=== PATIENT | male | born 1940 ===

== ENCOUNTER 2016-06-08 14:36 | Inpatient (IN) | payer MEDICARE, BC ==
[2016-06-08 14:44] VITALS: BMI 31.5
[2016-06-08] MEDS ORDERED: Morphine 2 mg/ml ISec IVP STA ×2 (15:18→17:53)
[2016-06-08 16:45] LABS: ADD MANUAL DIFF? NO
[2016-06-08 16:51] LABS: BASO # 0.05 K/mm3 (0.0-2.0); BASO % 0.6 % (0.0-3.0); EOS # 0.1 (0.0-0.7); EOS % 0.6 % (1.5-5.0); GRAN # 5.14 (1.4-6.5); GRAN % 66.7 % (50.0-68.0); HEMATOCRIT 40.4 % (42.0-52.0); LYMPH # 1.8 (1.2-3.4); LYMPH % 23.3 % (22.0-35.0); MEAN CORPUSCULAR HGB CONC 32.9 g/dl (31.0-37.0); MEAN PLATELET VOLUME 13.8 fl (7.0-11.0); MONO # 0.7 (0.1-0.6); MONO % 8.8 % (1.0-6.0); PLATELET COUNT 215 10^3/uL (120.0-450.0); RED CELL DISTRIBUTION WIDTH 14.5 % (11.5-14.5); WHITE BLOOD COUNT 7.7 10^3/ul (4.5-11.0)
[2016-06-08 17:04] LABS: ALKALINE PHOSPHATASE 165 U/L (38-133); ALT/SGPT 87 U/L (7-56); AST/SGOT 81 U/L (15-59); BILIRUBIN,TOTAL 0.8 mg/dL (0.2-1.3); BLOOD UREA NITROGEN 15 mg/dL (7-21); CARBON DIOXIDE 25 mmol/L (21-33); CHLORIDE 102 mmol/L (98-107); GFR AFRICAN-AMERICAN > 60; GLUCOSE,RANDOM 103 mg/dL (70-110); POTASSIUM 4.9 mmol/L (3.6-5.0); SODIUM 138 mmol/L (132-148); TOTAL PROTEIN 8.2 g/dL (5.8-8.3)
[2016-06-08 17:06] LABS: INR 1.06 (0.93-1.08); PARTIAL THROMBOPLASTIN TIME 26.4 Seconds (23.7-30.8)
[2016-06-08 17:19] LABS: TROPONIN I < 0.01 ng/mL
[2016-06-08] MEDS ORDERED: Albuterol HFA 90 mcg/actuation (8 g) IH PRN (17:24)
[2016-06-08] MEDS ORDERED: Albuterol 0.083% Inhal Sol (2.5 mg/3 mL) UD IH PRN (17:31)
[2016-06-08] MEDS ORDERED: Dexamethasone 4 MG in Sodium Chloride 0.9% 50 ML IV STA (17:56)
[2016-06-08 18:18] LABS: PH,URINE 5.5 (4.7-8.0); URINE BILIRUBIN NEGATIVE (NEGATIVE); URINE BLOOD NEGATIVE (NEGATIVE); URINE GLUCOSE (UA) NEGATIVE (NEGATIVE); URINE KETONE NEGATIVE (NEGATIVE); URINE LEUKOCYTE ESTERASE NEGATIVE Leu/uL (NEGATIVE); URINE PROTEIN TRACE mg/dL (<30 mg/dL)
[2016-06-08 18:20] LABS: URINE APPEARANCE CLEAR (CLEAR); URINE COLOR YELLOW (YELLOW)
[2016-06-08 18:21] LABS: URINE BACTERIA FEW (NEG); URINE RBC NEGATIVE /hpf (0-2); URINE WBC 0 - 2 /hpf (0-6)
--- NOTE | 2016-06-08 18:32 | RAD ---
PROCEDURE: Chest portable HISTORY: back pain COMPARISON: 12/20/2014. TECHNIQUE: Technique: Single view portable semi erect @ 16:45. FINDINGS: No active pulmonary disease. No pulmonary nodules, masses or infiltrates. No evidence of acute, significant cardiovascular disease. No significant pleural, osseous or subdiaphragmatic abnormalities. IMPRESSION: No active disease. No acute/significant interval changes.
--- NOTE | 2016-06-08 18:45 | CARD ---
APPROVED REPORT EKG Measurement Heart [id number] ME [id number] <Conclusion> Normal sinus rhythm Right bundle branch block Abnormal ECG
--- NOTE | 2016-06-08 19:05 | ED PDOC ---
Arrival/HPI - General Chief Complaint: Back Pain Time Seen by Provider: 06/08/16 14:55 Historian: Patient, Family - History of Present Illness Narrative History of Present Illness (Text): 06/08/16 19:02 Patient is a 75 yo male, past medical hx of prostate disease, sent from Dr. Kaitlyn Diaz for history of persistent back pain that has progressively worsening. No acute trauma reported. No chest pain or shortness of breath. No incontinence of urine or stool. Denies any numbness or weakness. Patient has reportedly had back pain worse since March. Outpatient MRI reportedly reveals thoracic spine fracture and suggestive of possible metastatic disease. Time/Duration: > month Past Medical History - Infectious Disease Hx of Infectious Diseases: None - Tetanus Immunization Tetanus Immunization: Unknown - Cardiac Hx Angina: Yes Hx Atrial Fibrillation: Yes Hx Hypertension: Yes - Pulmonary Hx Asthma: Yes Hx Chronic Obstructive Pulmonary Disease (COPD): Yes Hx Emphysema: Yes - Neurological Other/Comment: Neuropathy - HEENT Hx HEENT Disorder: Yes (wear glasses) Other/Comment: Porter's esophagus - Renal Hx Renal Disorder: Yes (right kidney cyst removal) - Endocrine/Metabolic Hx Diabetes Mellitus Type 2: Yes - Musculoskeletal/Rheumatological Hx Falls: No - Gastrointestinal Hx Gastroesophageal Reflux: Yes - Genitourinary/Gynecological Hx Reproductive Disorders: Yes - Psychiatric Hx Psychophysiologic Disorder: No Hx Substance Use: No - Surgical History Hx Appendectomy: Yes Hx Cholecystectomy: Yes Other/Comment: right kidney cyst removal,. hernia sx - Anesthesia Hx Anesthesia: Yes Hx Anesthesia Reactions: No Hx Malignant Hyperthermia: No - Suicidal Assessment Feels Threatened In Home Enviroment: No Family/Social History Family/Social History: Unknown Family HX Smoking Status: Light Smoker < 10 Cigarettes Daily Hx Alcohol Use: Yes (socially) Hx Substance Use: No Hx Substance Use Treatment: No Allergies/Home Meds Allergies/Adverse Reactions: Allergies No Known Allergies Allergy (Verified 06/08/16 14:44) Home Medications: Home Meds Medication Instructions Recorded Confirmed Albuterol Sulfate [Proair Hfa] 0.09 mg IH TID PRN 12/03/15 06/11/16 Aspirin [Adult Low Dose Aspirin EC] 81 mg PO DAILY 12/03/15 06/11/16 DULoxetine [Cymbalta] 60 mg PO DAILY 12/03/15 06/11/16 Fluticasone/Salmeterol 250/50 1 puff IH Q12 12/03/15 06/11/16 [Advair Diskus] Glucosamine Sulfate Dipot Chlr 1,000 mg PO BID 12/03/15 06/11/16 [Glucosamine] Metoprolol Succinate [Toprol XL] 50 mg PO BID 12/03/15 06/11/16 Silodosin [Rapaflo] 8 mg PO DAILY 12/03/15 06/11/16 Tiotropium [Spiriva] 18 mcg IH DAILY 12/03/15 06/11/16 Topiramate [Topamax] 25 mg PO HS 12/03/15 06/11/16 metFORMIN [glucOPHAGE] 500 mg PO DAILY 12/03/15 06/11/16 Review of Systems - Review of Systems Constitutional: Fatigue, Weight Change. absent: Fevers Eyes: absent: Vision Changes ENT: absent: Hearing Changes Respiratory: absent: SOB Cardiovascular: absent: Chest Pain Gastrointestinal: absent: Abdominal Pain, Diarrhea, Nausea, Vomiting Genitourinary Male: absent: Dysuria, Frequency, Hematuria, Urinary Output Changes Musculoskeletal: Back Pain. absent: Neck Pain Skin: absent: Rash Neurological: absent: Headache, Dizziness, Focal Weakness Endocrine: absent: Polyuria Hemo/Lymphatic: absent: Easy Bleeding Physical Exam Vital Signs Reviewed: Yes Vital Signs Temp Pulse Resp BP Pulse Ox 06/08/16 19:25 75 20 121/59 L 96 06/08/16 15:00 97.0 F L 66 20 111/68 97 Temperature: Afebrile Appearance: Positive for: Uncomfortable Pain Distress: Severe Mental Status: Positive for: Alert and Oriented X 3 - Systems Exam Head: Present: Atraumatic Pupils: Present: PERRL Mouth: Present: Moist Mucous Membranes Pharnyx: No: ERYTHEMA Neck: Present: Normal Range of Motion, Trachea Midline. No: Meningeal Signs, MIDLINE TENDERNESS Respiratory/Chest: Present: Clear to Auscultation. No: Respiratory Distress, Tender to Palpation Cardiovascular: Present: Regular Rate and Rhythm Abdomen: No: Tenderness, Distention Rectal: No: Gross Blood Back: Present: Midline Tenderness, Paraspinal Tenderness, Pain with Leg Raise. No: CVA Tenderness Upper Extremity: Present: Normal Inspection. No: Edema Lower Extremity: Present: NORMAL PULSES, Neurovascularly Intact. No: Edema, CALF TENDERNESS Neurological: Present: Motor Func Grossly Intact, Normal Sensory Function, Other (no saddle anesthesia, reflexes intact) Skin: Present: Warm Psychiatric: Present: Alert Medical Decision Making ED Course and Treatment: 06/08/16 19:05 Patient's MRI reports from 06/04 reviewed with prior to arrival. On exam in ED, he has severe back pain, although exam and previous MRI not consistent with cord compression. On current exam there are no focal neuro deficits or history of incontinence of urine or stool. IV morphine given with only mild improvement with pain, it persists. Chest xray obtained, cannot exclude nodules. He is not respiratory distress. Denies chest pain or sob. Case d/w Dr. Camacho, iv decadron and neuro and nsg consults requested. I discussed case with Dr. Farah, neurosurgery. updated, patient admitted for evaluation of spinal fracture, evaluation for possible metastatic disease. Family updated with treatment plan. Pain improved but persistent after additional dose of iv narcotics. Concern for underlying malignancy reviewed. Family translates for patient. 06/08/16 19:07 LFTs elevated, currently no abdominal pain noted. - Lab Interpretations Lab Results: 06/08/16 16:33 06/08/16 16:33 Lab Results 06/08/16 16:33: WBC 7.7 D, RBC 4.44, Hgb 13.3 L, Hct 40.4 L, MCV 91.0, MCH 30.0 , MCHC 32.9, RDW 14.5, Plt Count 215, MPV 13.8 H, Gran % 66.7, Lymph % (Auto) 23.3, Barry % (Auto) 8.8 H, Eos % (Auto) 0.6 L, Baso % (Auto) 0.6, Gran # 5.14, Lymph # 1.8, Barry # 0.7 H, Eos # 0.1, Baso # 0.05, ESR 26 H, PT 11.4, INR 1.06, APTT 26.4, Sodium 138, Potassium 4.9, Chloride 102, Carbon Dioxide 25, Anion Gap 16, BUN 15, Creatinine 1.1, Est GFR ( Amer) > 60, Est GFR (Non-Af Amer) > 60, Random Glucose 103, Calcium 10.0, Total Bilirubin 0.8, AST 81 H, ALT 87 H, Alkaline Phosphatase 165 H, Lactate Dehydrogenase 586, Total Creatine Kinase 24 L, Troponin I < 0.01, Total Protein 8.2, Albumin 4.1, Globulin 4.1, Albumin/Globulin Ratio 1.0 L, Carcinoembryonic Ag 1.3, Free PSA <0.1, % Free PSA Unable to calculate, Total PSA <0.1, Blood Type O POSITIVE, Antibody Screen Negative, BBK History Checked Patient has bt - RAD Interpretation Radiology Orders: 06/08/16 14:59 CHEST PORTABLE [RAD] Stat 06/08/16 17:21 CHEST,ABD,PEL W/IV CONT ONLY [CT] Stat Summer Analyst: Radiologist - EKG Interpretation Interpreted by ED Physician: Yes Type: 12 lead EKG - Medication Orders Current Medication Orders: Discontinued Medications Acetaminophen (Tylenol 325mg Tab) 650 mg PO Q4 PRN PRN Reason: Pain, Mild (1-3) Albuterol Sulfate (Albuterol 0.083% Inhal Maureen (2.5 Mg/3 Ml) Ud) 2.5 mg IH TID PRN PRN Reason: SOB Arformoterol Tartrate (Brovana) 15 mcg IH [id number] [facility] Last Admin: 06/11/16 07:24 Dose: 15 MCG Aspirin (Ecotrin) 81 mg PO DAILY [facility] Last Admin: 06/09/16 09:35 Dose: 81 MG Budesonide (Pulmicort Respules) 0.5 mg IH [id number] [facility] Last Admin: 06/11/16 07:24 Dose: 0.5 MG Dexamethasone (Decadron) 4 mg PO Q6 [facility] Last Admin: 06/11/16 17:54 Dose: 4 MG Duloxetine HCl (Cymbalta) 60 mg PO DAILY [facility] Last Admin: 06/11/16 09:40 Dose: 60 MG Famotidine (Pepcid) 20 mg IVP STAT STA Stop: 06/08/16 17:56 Last Admin: 06/08/16 20:35 Dose: 20 MG IVP Administration Document 06/08/16 20:35 RD (Rec: 06/08/16 20:35 RD [id number]) Charges for Administration # of IVP Administrations 1 Fentanyl (Fentanyl) Confirm Administered Dose 100 mcg .ROUTE .STK-MED ONE Stop: 06/10/16 15:13 Last Admin: 06/10/16 15:28 Dose: 100 MCG Comments: 1528 50mcg given IV by 1536 50mcg given IV as per MAR Pain Assessment Document 06/10/16 15:28 JMT (Rec: 06/10/16 16:27 JMT [id number]) Pain Reassessment Is this a pain reassessment? No Dexamethasone 4 mg/ Sodium (Chloride) 51 mls @ 150 mls/hr IV STAT STA Stop: 06/08/16 18:16 Last Admin: 06/08/16 20:35 Dose: 150 MLS/HR eMAR Start Stop Document 06/08/16 20:35 RD (Rec: 06/08/16 20:35 RD [id number]) Intravenous Solution Start Date 06/08/16 Start Time 20:35 End Date 06/08/16 End time 20:56 Total Infusion Time 21 Sodium Chloride (Sodium Chloride 0.45%) 1,000 mls @ 60 mls/hr IV .[id number] ANDREA Stop: 06/11/16 08:00 Last Admin: 06/11/16 06:45 Dose: 60 MLS/HR eMAR Start Stop Document 06/11/16 06:45 IMT (Rec: 06/11/16 06:45 IMT [id number]) Intravenous Solution Start Date 06/11/16 Start Time 06:00 Heparin Sodium (Porcine) (Heparin 1000 Units/500 Ml Ns) Confirm Administered Dose 500 mls @ ud IV .STK-MED ONE Stop: 06/10/16 14:48 Iodixanol (Visipaque 320 Mg/Ml 100 Ml) Confirm Administered Dose 100 ml IV .STK- MED ONE Stop: 06/10/16 14:48 Iohexol (Omnipaque 350 100 Ml) Confirm Administered Dose 350 mg .ROUTE .STK-MED ONE Stop: 06/08/16 19:32 Lidocaine HCl (Lidocaine 2% 20ml Vial) Confirm Administered Dose 40 ml .ROUTE .STK-MED ONE Stop: 06/10/16 14:48 Last Admin: 06/10/16 15:32 Dose: 20 ML Comments: 1532 10ml given subcutaneously by 1543 10ml given subcutaneously by Metoprolol Succinate (Toprol Xl) 50 mg PO DAILY [facility] Last Admin: 06/11/16 09:40 Dose: 50 MG Midazolam HCl (Versed Inj) Confirm Administered Dose 2 mg .ROUTE .STK-MED ONE Stop: 06/10/16 15:13 Last Admin: 06/10/16 15:28 Dose: 2 MG Comments: 1528 1.5mg given IV by 1536 0.5mg given IV as per Midazolam HCl (Versed Inj) Confirm Administered Dose 2 mg .ROUTE .STK-MED ONE Stop: 06/10/16 15:38 Last Admin: 06/10/16 15:36 Dose: 1 MG Comments: 1536 0.5mg given IV as per 1606 0.5mg given IV as per Morphine Sulfate (Morphine) 2 mg IVP STAT STA Stop: 06/08/16 15:19 Last Admin: 06/08/16 16:39 Dose: 2 MG MAR Pain Assessment Document 06/08/16 16:39 OCS (Rec: 06/08/16 16:39 [facility] Pain Reassessment Is this a pain reassessment? Yes Sleep Is patient sleeping during reassessment? No Presence of Pain Presence of Pain Yes Pain Scale Used Pain Scale Used Numeric Location Pain Location Body Site Back Description Intensity of Pain at present 10 IVP Administration Document 06/08/16 16:39 OCS (Rec: 06/08/16 16:39 [facility]CS [facility] Charges for Administration # of IVP Administrations 1 Morphine Sulfate (Morphine) 2 mg IVP STAT STA Stop: 06/08/16 17:54 Last Admin: 06/08/16 20:34 Dose: 2 MG MAR Pain Assessment Document 06/08/16 20:34 RD (Rec: 06/08/16 20:35 RD [id number]) Pain Reassessment Is this a pain reassessment? No Sleep Is patient sleeping during reassessment? No Presence of Pain Presence of Pain Yes IVP Administration Document 06/08/16 20:34 RD (Rec: 06/08/16 20:35 RD [id number]) Charges for Administration # of IVP Administrations 1 Re-Assess: MAR Pain Assessment Document 06/08/16 21:34 KGD (Rec: 06/09/16 00:01 KGD CP) Pain Reassessment Is this a pain reassessment? Yes Sleep Is patient sleeping during reassessment? Yes Morphine Sulfate (Morphine) 2 mg IVP Q4H PRN PRN Reason: Pain, severe (8-10) Last Admin: 06/10/16 17:41 Dose: 2 MG [facility] Pain Assessment Document 06/10/16 17:41 MCV (Rec: 06/10/16 17:41 [facility]-[id number]) Pain Reassessment Is this a pain reassessment? No Presence of Pain Presence of Pain Yes Pain Scale Used Pain Scale Used Numeric Location Pain Location Body Site Back Description Description Pressure Intensity of Pain at present 9 Pain Behavior Restlessness Aggravating Factors Changing Position Alleviating Factors/Management Medication Techniques Alleviating Factors Medication IVP Administration Document 06/10/16 17:41 [facility] (Rec: 06/10/16 17:41 [facility]-[id number]) Charges for Administration # of IVP Administrations 1 Re-Assess: [facility] Pain Assessment Document 06/10/16 18:41 MCV (Rec: 06/10/16 19:06 [facility]-[id number]) Pain Reassessment Is this a pain reassessment? Yes Sleep Is patient sleeping during reassessment? Yes Pain Scale Used Pain Scale Used Radha Non-Formulary Medication (Silodosin [Rapaflo]) 8 mg PO DAILY [facility] Last Admin: 06/09/16 18:49 Dose: 8 MG Non-Formulary Medication (Silodosin [Rapaflo]) 8 mg PO DAILY [facility] Last Admin: 06/11/16 09:41 Dose: Non-Formulary Medication (Silodosin [Rapaflo]) 8 mg PO DAILY@2200 [facility] Ondansetron HCl (Zofran Inj) 4 mg IVP Q6H PRN PRN Reason: Nausea/Vomiting Oxycodone HCl (Oxycontin Extended Release Tab) 10 mg PO Q12 [facility] Stop: 06/11/16 22:01 Last Admin: 06/11/16 09:40 Dose: 10 MG [facility] Pain Assessment Document 06/11/16 09:40 MJO (Rec: 06/11/16 09:40 MJO [facility] [place] [facility] [place] Pain Reassessment Is this a pain reassessment? No Sleep Is patient sleeping during reassessment? No Presence of Pain Presence of Pain No Re-Assess: [facility] Pain Assessment Document 06/11/16 10:40 MJO (Rec: 06/11/16 11:59 MJO [facility] [place] [facility] [place] Pain Reassessment Is this a pain reassessment? Yes Sleep Is patient sleeping during reassessment? No Presence of Pain Presence of Pain No Oxycodone HCl (Oxycodone Immediate Release Tab) 5 mg PO Q6H PRN PRN Reason: Pain, severe (8-10) Last Admin: 06/11/16 14:15 Dose: 5 MG [facility] Pain Assessment Document 06/11/16 14:15 [facility] (Rec: 06/11/16 14:16 [id number] Pain Reassessment Is this a pain reassessment? No Sleep Is patient sleeping during reassessment? No Presence of Pain Presence of Pain Yes Pain Scale Used Pain Scale Used Numeric Location Upper or Lower Lower Pain Location Body Site Back Description Description Intermittent Intensity of Pain at present 7 Pain Behavior Facial Grimacing Aggravating Factors ADL's Changing Position Exercise/Activity Alleviating Factors/Management Medication Techniques Re-Assess: [facility] Pain Assessment Document 06/11/16 15:11 [facility] (Rec: 06/11/16 15:11 [id number] Pain Reassessment Is this a pain reassessment? No Sleep Is patient sleeping during reassessment? No Presence of Pain Presence of Pain No Oxycodone/Acetaminophen (Percocet 5/325 Mg Tab) 1 tab PO Q4H PRN PRN Reason: Pain, moderate (4-7) Stop: 06/13/16 16:39 Sennosides (Senokot Tab) 8.6 mg PO DAILY [facility] Last Admin: 06/11/16 09:40 Dose: 8.6 MG Tiotropium Jackson (Spiriva) 18 mcg IH DAILY [facility] Last Admin: 06/11/16 09:39 Dose: 18 MCG Topiramate (Topamax) 25 mg PO HS [facility] PRN Reason: Protocol Last Admin: 06/10/16 22:09 Dose: 25 MG Behavioural Document 06/10/16 22:09 [facility] (Rec: 06/10/16 22:09 [id number] Maintenance Maintenance Dose Yes Nonmedicinal Nonmedicinal Interventions Redirect Behavior Behavior for Medication: Insomnia Disposition/Present on Arrival - Present on Arrival Any Indicators Present on Arrival: No History of DVT/PE: No History of Uncontrolled Diabetes: No Urinary Catheter: No History of Decub. Ulcer: No History Surgical Site Infection Following: None - Disposition Have Diagnosis and Disposition been Completed?: Yes Diagnosis: Thoracic spine fracture Disposition: HOSPITALIZED Disposition Time: 17:00 Patient Plan: Admission Condition: SERIOUS
[2016-06-08] MEDS ORDERED: Iohexol 350 MG/100 ML VIAL ONE (19:31)
[2016-06-08] MEDS ORDERED: Fluticasone-Salmeterol 250-50mcg Diskus IH SCH (22:00)
[2016-06-08] MEDS: oxyCODONE 10 mg ER Tab (oxyCONTIN) PO SCH (23:01)
--- NOTE | 2016-06-09 05:27 | HP ---
HISTORY OF PRESENT ILLNESS: This unfortunate 75-year-old male came in from [place] a few days ago complaining of severe back pain and onset of weight loss. He was seen as an outpatient in the office and had been trying to remedy with the tramadol, but he was in such pain that while in [place], he was given a spinal block of one type or another. He has barely arrived and had remained there with this amount of pain for over 3 months. His main in process inspector is his , a former nurse, and he does tend to have occasional pain and other issues, but this was clearly a change from the past. We had last seen him in when he was planning to spend some time in [place] and has been, unfortunately, not attending many family functions because of the pain. We are told that there he had some referrals to doctors, but nothing seemed to work. We asked the if there was any MRI done, and she said no, only x-rays, which she brought disks of, that were not helpful. The evaluation of these x- rays was not helpful either. So as he was seen on last as an outpatient, we referred him over to what we thought would be appropriate, Dr. Duncan or Dr. Reyes, and he was able to get in with Dr. Duncan today. We also procured an MRI for him that was done and was not called in to our office. So the patient has been with this very severe pain for over 3 months, as we can tell. He does not sit for any prolonged period of time. He is always lying down on a bed, that is where he feels comfortable. He gets up only to please his so that he can move around, but as soon as he can be supine, he is in that position. Nothing seems to relieve him. He came not with narcotic, but with tramadol. That does not seem to help him, and it really was very disturbing to see that his pain has been ongoing for so long. The x-ray that we were given did not mention any fracture, and the was not told of any fracture. There was not much from the evaluation at [place] by the doctors that we just cannot understand how this went on for so long. However, we took from that day on, and the patient has underlying depression, so that also maximizes some of the issues. He was able to stand the visit with us last , for a short time, so that we could get our main evaluation done. His medicines were reviewed, and he was sent to the ER earlier on today after we got a call from Dr. Duncan, whose interpretation, and agreement of the MRI was that there is a fresh T11 fracture with some consistent findings of possible metastatic disease. This was all very new to the patient, his , and us, and Dr. Duncan's recommendation was to bring him to the Emergency Room and hopefully admit, as there does need to be immediate workup done, and the patient is in such pain that he will not be able to do this on his own. Sending him over to the ER, there were no acute findings by the labs, and case was discussed with Dr. Multani, who was kind enough to review and have a few of the tests done. Laboratories were not as contributory as we had hoped, and the main MRI was already evident. So, a call was placed to Dr. Camacho as a windows consultant. He will see the patient later. A call was placed to the neurosurgeon at Dr. Camacho's request as the MRI findings may warrant neurosurgical intervention, but Dr. Farah will look over later. PAST MEDICAL HISTORY: Remarkable for mild anemia, recurrent constipation, occasional chest wall tenderness post the insertion of the chest tube over a [id number] ago, an episode of paroxysmal atrial fibrillation, chronic bronchitis. He follows with Dr. Headley. History of prostate cancer. He follows with and has been receiving Eligard. Recurrent headaches and this is overseen with Dr. Soliman. He has some varicose veins that appear to be asymptomatic. 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 Idiopathic neuropathy, hyperlipidemia, nicotine dependence, a renal cyst, and a history in the past of bullous emphysema. PAST SURGICAL HISTORY: Remarkable for cataracts, appendectomy, gallbladder, history of herniorrhaphy, partial left nephrectomy by Dr. Carr in 1978, history of carpal tunnel syndrome release in the , and prostate biopsy intervention through Dr. Weir. FAMILY HISTORY: Remarkable for his father had an OK, age 84, also had a comorbid COPD. Mother at age 93, COPD and an OK. Siblings were alive. Children are alive. He has 3 brothers, 2 sisters, and 2 daughters. There is some family history of cirrhosis and heart attack. One brother also has prostate and colon cancer. He is retired, has been disabled for a few years now. SOCIAL HISTORY: He is , lives with his spouse who is a retired RN. He does not drink alcohol, but he still occasionally smokes. ALLERGIES: LISTED NAUSEA TO MEDROL. We certainly he can tolerate the current dose of cortisone that was prescribed by Dr. Camacho and Dr. Farah. He is always tired. Has had no recent fever. Suffers from recurrent headaches and recent weight loss as he has lost his appetite, and gets chest pain on deep inspiration at times. He is unable to carry any activity consistently, as he is always lying down from the pain. The chest pain at times is band-like and it is across his chest, burning in nature. But again due to the back pain, he cannot fully exert himself. He does suffer from occasional constipation. No history of hepatitis and does appear to be somewhat depressed as anyone would with his current symptoms as he has. MEDICATIONS: Reviewed. He is on duloxetine 60, Rapaflo 8, on Advair Diskus 250 /50, Spiriva once a day, topiramate 25 in the evening, metoprolol tartrate was on 50 mg twice a day. We will change that to once a day while here. The ProAir is used as a rescue. Omeprazole 20, metformin 1000 once a day. We will hold that all for now until we see his intake. Losartan 50 once a day. We will hold off for now, and because of his forgetfulness, he takes Cerefolin. He came from [place] on chlorzoxazone 500 mg 3 times a day and tramadol 50, none of which will be continued now. He had been on Eligard until a few months ago. He missed the one that is due now, and we doubt that with these findings we are going to resume it, but the workup will need to be done. PHYSICAL EXAMINATION: He arrives and is not able to sit for any prolonged period. Is most comfortable lying flat in bed without motion. VITAL SIGNS: pulse rate is 66 and regular, blood pressure 111/68, respiratory rate is 20, and an O2 sat of 97, which is very good for him. GENERAL: He is alert and oriented and is aware of the reason for this admission and appears to be taking at all in stride, as we had a conversation with him and the regarding our very poor expectations and prognosis at present with the lack of information that we have, and hopefully we will have better recommendations once we are able to have the experts help us. He is undernourished and obviously has lost weight and is in extreme pain at any type of motion at 10/10. HEENT: Head is normocephalic, atraumatic. Eyes have extraocular movements full and smooth. Pupils are equally round and reactive to light and accommodation. Sclerae are nonicteric. He is able to hear as well. There is no wax in the ear canal. Nares are patent. There are no lesions in the mouth, and he appears to be well hydrated. Tongue is midline. There is no erythema or exudate in the posterior pharynx. NECK: Supple. There is no thyromegaly. No masses. The carotid bruit is not obvious. He has no rashes on his skin. HEART: Very distant in sound, but rhythm is regular. No murmur appreciated. LUNGS: Very diminished breath sounds throughout. No wheeze. No respiratory distress, and he does not have the typical chest pain that we usually can express when to put pressure on his intercostals. ABDOMEN: Soft. Bowel sounds are present, but distant. No rebound. EXTREMITIES: We do not see clubbing or cyanosis. There are pulses bilaterally. NEUROLOGIC: He is alert and oriented x 3. Cognitive appears grossly normal. The gait is definitely antalgic. LABORATORY DATA: Review of the labs that were done in the Emergency Room shows a sed rate of 26 with a normal of 15. An H and H of 13.3 and hematocrit of 40.4 , which are stable and perhaps slightly up more than normal, as he may be slightly dehydrated. Coagulation shows no abnormalities in PT, INR, and PTT. His chemistry shows an AST of 81 and ALT of 87, probably consistent with all the use of Tylenol and other medications he may have had on the outside. His alkaline phosphatase, remarkably, is only 165. Troponin was negative. CEA is only 1.3. PSA is pending. Urine just showed some trace protein. At present, I have no other to review except the MRI that was done on 06/04, and it has become evident for us. His chest x-ray today was read as no active disease. He did have prior history of TB in the past, but no mention of any disease or nodules in the plain chest x-ray. He will undergo a CAT scan of the chest as the thoracic spine MRI was noted as an acute compression fracture in T11, in the body, with a fracture line identified, and this was not evident on the x- rays that were done in [place]. There is mild spinal canal stenosis, probably the cause of his severe pain and abnormal marrow signal. The osseous findings were concerning enough that the radiologist fears osseous, and pulmonary metastasis. So, the request for the CT scan of the thorax with IV was done, we are pending the results. There is no evidence of cord compression. No evidence of hematoma. There is some abnormality noted in T3 vertebral body, and there are incompletely imaged nodules in both lung bases. I believe these were present in the past. We are not certain what else to make out of the findings, hopefully not metastatic disease, but obviously the pain is so severe that this will have to be done as an inpatient. The accompanying MRI of the lumbar spine was not as revealing, and fortunately the interpretation there was no acute fracture, but multilevel degenerative disk disease, worse at L4-5 with a disk bulge and some protrusion displacing the L4 nerve root, and perhaps the reason that the epidural may have worked for a short time when he had one in [facility] if that, indeed, is what he had, but we have no report, so not sure what to make out that. We will wait for the review from the neurosurgeon. We will wait for the recommendation from Dr. Camacho, and perhaps once we have a better idea, involve Dr. Headley, who has been moderating his pulmonary nodules. IMPRESSION: Intractable pain, possibly from metastatic disease to the bone. Primary to be determined. SECONDARY DIAGNOSIS: 1. T11 fracture. 2. Nicotine dependence. 3. Type 2 diabetes mellitus. 4. Chronic pain syndrome. PLAN OF CARE: Depending on the directions from the consultants, and we will continue to closely follow the patient. The weight loss, that has been monitored in the office, of 20 pounds in the past 3 months is disturbing whether it is metastatic disease or lack of nutrition due to his pain will all need to be elucidated. Anthony Diaz MD cc: 73 TT: 06/09/2016 05:26:17 jocelyn HANCOCK
[2016-06-09] MEDS: Arformoterol 15 mcg/2 ml Inh Sol IH SCH ×2 (07:23→20:34)
[2016-06-09] MEDS: Budesonide 0.5 mg/2 ml Inhal Susp UD IH SCH ×2 (07:23→20:34)
[2016-06-09] MEDS: oxyCODONE 10 mg ER Tab (oxyCONTIN) PO SCH ×2 (09:35→21:12)
[2016-06-09] MEDS: Metoprolol Succinate 50 mg XL Tab PO SCH (09:37)
[2016-06-09] MEDS: Tiotropium 18 mcg Cap For Inhalation IH SCH (09:39)
[2016-06-09] MEDS ORDERED: SILODOSIN 8 MG PO SCH (10:00)
--- NOTE | 2016-06-09 11:08 | CON ---
DATE: 06/09/2016 A 75-year-old male with history of weight loss and severe back pain localized to the lower thoracic r egion was seen previously by his PMD as an outpatient. An MRI was ordered which was done several day s ago demonstrating a new T11 fracture consistent with metastatic disease. The patient reports the b ack pain has been going on and intensifying over the last 3 months. He denies any problems using his legs. He denies any new bowel or bladder problems. He reports that he has no numbness, tingling or paresthesias in his lower extremities. PAST MEDICAL HISTORY: He has history of prostate CA being treated by Dr. Camacho. He has history of anemia, chest pain, asthma, emphysema. MEDICATIONS: I have reviewed the chart for his medications. FAMILY HISTORY: Documented in the medical record and reviewed as is the social history and review of systems PHYSICAL EXAMINATION: Currently, he has tenderness in the lower thoracic region. He has no motor de ficits. He has no sensory deficits, pin and touch. Reflexes are all 2/4. I did not walk him. At this point, my impression is metastatic disease, possible plasmacytoma versus myeloma, possible pr ostate metastases. He needs a biopsy of this region. This can be accomplished using interventional radiology and doing a needle biopsy. This is much safer than an open biopsy. He does not require an y neural decompression. He does not require any spinal stabilization at this point. If you are unab le to obtain tissue diagnosis, either through interventional radiology or if you cannot get tissue at another site which may show up in the metastatic workup, then reconsult and we will do an open biops y. Jai Farah MD cc: [id number] TT: 06/09/2016 11:07:19 Confirmation # [id number] Dictation # [id number] tn
--- NOTE | 2016-06-09 12:24 | CP.PCM.CON ---
History of Present Illness - History of Present Illness History of Present Illness: Mr Loo is a 75 year old male with a history of prostate cancer on Eligard who now presents to [facility] with worsening lower back pain for 3 months. At the time, when he was in [place], he saw specialists who injected him with steroids, however he stated he did not have any relief. He recently [place] and saw his PCP due to the debilitating nature of his pain. His PCP referred him for further work-up. A MRI of the lumbar spine on June 04, 2016 revealed no acute fracture. A MRI of the thoracic spine revealed an acute compression fracture at T11 with posterior retropulsion and mild spinal canal stenosis. There was abnormal marrow signal on the left T11 pedicle as well as focal abnormal signal at right T3. He is currently admitted for evaluation of his back lesion and pain management. We were asked to see him today for our input regarding the case. He did have a CT of the chest, abdomen and pelvis, however the results are pending. Review of Systems - Constitutional Constitutional: Weight Loss - Gastrointestinal Gastrointestinal: Abdominal Pain, Constipation, Nausea - Musculoskeletal Musculoskeletal: Back Pain - Neurological Neurological: Headaches Past Patient History - Infectious Disease Hx of Infectious Diseases: None - Tetanus Immunizations Tetanus Immunization: Unknown - Past Social History Smoking Status: Light Smoker < 10 Cigarettes Daily Alcohol: None Home Situation {Lives}: With Family - CARDIAC Hx Angina: Yes Hx Hypertension: Yes - PULMONARY Hx Asthma: Yes Hx Chronic Obstructive Pulmonary Disease (COPD): Yes Hx Emphysema: Yes - NEUROLOGICAL Other/Comment: Neuropathy - HEENT Hx HEENT Problems: Yes (wear glasses) Other/Comment: Porter's esophagus - RENAL Hx Chronic Kidney Disease: Yes (right kidney cyst removal) - ENDOCRINE/METABOLIC Hx Endocrine Disorders: Yes Hx Diabetes Mellitus Type 2: Yes - HEMATOLOGICAL/ONCOLOGICAL Hx Blood Disorders: No - INTEGUMENTARY Hx Dermatological Problems: No - MUSCULOSKELETAL/RHEUMATOLOGICAL Hx Falls: No - GASTROINTESTINAL Hx Gastroesophageal Reflux: Yes - GENITOURINARY/GYNECOLOGICAL Hx Prostate Cancer: Yes (prostate cancer Arlene 6 in 2011 on Eligard) - PSYCHIATRIC Hx Psychophysiologic Disorder: No Hx Substance Use: No - SURGICAL HISTORY Hx Appendectomy: Yes Hx Cholecystectomy: Yes Other/Comment: right kidney cyst removal,. hernia sx - ANESTHESIA Hx Anesthesia: Yes Hx Anesthesia Reactions: No Hx Malignant Hyperthermia: No Meds Allergies/Adverse Reactions: Allergies Allergy/AdvReac Type Severity Reaction Status Date / Time No Known Allergies Allergy Verified 06/08/16 14:44 - Medications Medications: Current Medications Albuterol Sulfate (Albuterol 0.083% Inhal Maureen (2.5 Mg/3 Ml) Ud) 2.5 mg IH TID PRN PRN Reason: SOB Arformoterol Tartrate (Brovana) 15 mcg IH [id number] [facility] Last Admin: 06/09/16 07:23 Dose: 15 mcg Aspirin (Ecotrin) 81 mg PO DAILY [facility] Last Admin: 06/09/16 09:35 Dose: 81 mg Budesonide (Pulmicort Respules) 0.5 mg IH [id number] [facility] Last Admin: 06/09/16 07:23 Dose: 0.5 mg Duloxetine HCl (Cymbalta) 60 mg PO DAILY [facility] Last Admin: 06/09/16 09:35 Dose: 60 mg Metoprolol Succinate (Toprol Xl) 50 mg PO DAILY [facility] Last Admin: 06/09/16 09:37 Dose: 50 mg Non-Formulary Medication (Silodosin [Rapaflo]) 8 mg PO DAILY [facility] Oxycodone HCl (Oxycontin Extended Release Tab) 10 mg PO Q12 [facility] Stop: 06/11/16 22:01 Last Admin: 06/09/16 09:35 Dose: 10 mg Oxycodone HCl (Oxycodone Immediate Release Tab) 5 mg PO Q6H PRN PRN Reason: Pain, severe (8-10) Sennosides (Senokot Tab) 8.6 mg PO DAILY [facility] Last Admin: 06/09/16 09:38 Dose: 8.6 mg Tiotropium Angier (Spiriva) 18 mcg IH DAILY [facility] Last Admin: 06/09/16 09:39 Dose: 18 mcg Topiramate (Topamax) 25 mg PO [facility] PRN Reason: Protocol Last Admin: 06/08/16 23:01 Dose: 25 mg Physical Exam - Head Exam Head Exam: NORMAL INSPECTION - Eye Exam Eye Exam: EOMI - ENT Exam ENT Exam: Mucous Membranes Moist - Respiratory Exam Respiratory Exam: Clear to Auscultation Bilateral - Cardiovascular Exam Cardiovascular Exam: REGULAR RHYTHM - GI/Abdominal Exam GI & Abdominal Exam: Normal Bowel Sounds - Back Exam Additional comments: tenderness in mid/lower back - Neurological Exam Neurological exam: CN II-XII Intact, Oriented x3 Results - Vital Signs Recent Vital Signs: Last Vital Signs Temp 98.3 F 06/09/16 08:24 Pulse 108 H 06/09/16 09:37 Resp 20 06/09/16 08:24 BP 127/89 06/09/16 09:37 Pulse Ox 96 06/09/16 08:24 - Labs Result Diagrams: 06/08/16 16:33 06/08/16 16:33 Labs: Laboratory Results - last 24 hr 06/08/16 17:58 Urine Color Yellow Urine Appearance Clear Urine pH 5.5 Ur Specific Sundown 1.025 Urine Protein Trace H Urine Glucose (UA) Negative Urine Ketones Negative Urine Blood Negative Urine Nitrate Negative Urine Bilirubin Negative Urine Urobilinogen 1.0 H Ur Leukocyte Esterase Negative Urine RBC Negative Urine WBC 0 - 2 Ur Epithelial Cells None Urine Bacteria Few Assessment & Plan - Assessment and Plan (Free Text) Assessment: Mr Loo is a 75 year old male with a history of [facility] who now presents to [facility] with worsening lower back pain for 3 months with new acute compression for T11 lesion, suspicious for metastases. We are waiting for the radiology read of his CT of the chest, abdomen and pelvis to ascertain a possible primary as well as evidence of metastases elsewhere. Based on CT findings, a CT guided biopsy would help ascertain pathology. We are aware that IR and neurosurgery were consulted regarding the compression fracture to see if acute intervention could help relieve his pain immediately. If the fracture is pathologic, he would benefit from palliative radiation. However before we can proceed with any definitive intervention, we will need further work-up. We spoke to him, his and family about this.
--- NOTE | 2016-06-09 13:27 | CT ---
PROCEDURE: CT Chest, Abdomen and Pelvis with intravenous contrast HISTORY: pathologic dorsal spine fracture COMPARISON: None. TECHNIQUE: IV dose administered: 100 cc of Omni 350 Radiation dose: Total exam DLP = 1500 mGy-cm. This CT exam was performed using one or more of the following dose reduction techniques: Automated exposure control, adjustment of the mA and/or kV according to patient size, and/or use of iterative reconstruction technique. FINDINGS: CT CHEST WITH CONTRAST: LUNGS: Multiple pulmonary nodules are seen. Minimal emphysematous changes are seen. There is a left-sided rib lesion on image 85 series 4 MEDIASTINUM: Unremarkable. Normal caliber aorta and pulmonary arterial trunk. No aortic dissection. Normal size heart. LYMPH NODES: Unremarkable. PLEURA: Unremarkable. No pneumothorax. No pleural fluid. BONES: There is a lytic lesion in the T11 vertebral body with some epidural invasion. There is a mild compression deformity OTHER FINDINGS: None. CT ABDOMEN AND PELVIS: LIVER: There is a large hypodense mass in the liver measuring 7.4 cm. Several smaller surrounding lesions are also seen. Findings are consistent with metastatic disease versus is a primary neoplasm. GALLBLADDER AND BILE DUCTS: Unremarkable. PANCREAS: Unremarkable. No gross lesion or ductal dilatation. SPLEEN: Unremarkable. ADRENALS: Unremarkable. No mass. KIDNEYS AND URETERS: There is a 2 cm lesion along the medial surface of the left kidney that measures 33 Hounsfield units in density. 2.5 cm in diameter VASCULATURE: Unremarkable. No aortic aneurysm. BOWEL: Unremarkable. No obstruction. No gross mural thickening. APPENDIX: Normal appendix. PERITONEUM: Unremarkable. No free fluid. No free air. LYMPH NODES: Unremarkable. No enlarged lymph nodes. BLADDER: Unremarkable. REPRODUCTIVE: Unremarkable. BONES: There is a lytic lesion in the right ischium image 190 series 2 OTHER FINDINGS: The report concurs with the preliminary [facility] report IMPRESSION: Multiple lesions in the liver the largest measuring 7.5 cm, suspicious for metastatic disease. Solid lesion versus dense cyst in the left kidney. Lytic bone lesions in the T11 vertebral body and the right ischium as well as left lower rib
[2016-06-09] MEDS: oxyCODONE 5 mg Immediate Release Tab PO PRN (18:48)
[2016-06-09] MEDS ORDERED: Morphine 2 mg/ml ISec IVP PRN (19:15)
--- NOTE | 2016-06-09 21:54 | PN ---
DATE: 06/09/2016 The patient seen earlier this morning at his bedside with his , being much more relieved than whe n he was admitted, and grateful that after 3 months he is finally able to move a little easier withou t pain. Still requiring his rppjky-rwn-chhdm medications, but finally achieving some end. The patie nt was referred to the Emergency Room yesterday after a recent MRI revealed a pathological fracture i nvolving T11, which was a big surprise to the consulting physical medicine expert, Dr. Duncan, and who suggested the patient be immediately admitted for the expedition of the necessary evaluation, as he was not even ambulatory. The patient's severity of pain was perhaps a 02/13, that he could not remai n sitting for any prolonged period of time. His only method of comfort with just lying in bed withou t moving around. He could not get up often. He would get up to the bathroom and come back to the be d because of the pain in the lower back had been so severe until finally we have an identification of the focus of the pain. Before this, he was evaluated in [place] over the past 3 months where he had been, with x-rays and radiation that did not last but a half hour, with injections. We do not b elieve this to have been epidural as it is not described as such by the family, but have no record; [facility] reports that showed severe DJD and the mention of a fracture at that time. Our surprise ye sterday when the report became available, that there are some neurological symptoms that possibly cou ld vouch for some of the bulging disks. However, the severity of the pain goes along with a fresh fr acture, and because of the prior history, it is felt to be pathologic, as that is the appearance. Th e problem now comes as to the source. The patient has long-standing history of prostate cancer being treated with Eligard, and a negative PSA when last checked over 6 months ago. He is being followed with this with Dr. Weir, the urologist in [place]. He has history of lung nodules that are serially checked by Dr. Headley; none of which have shown any imaging. He recently was admitted over a year ago for a left-sided pleural effusion of etiology felt to be because of his bullous emphysema, that took a while to improve, with recurrent pain in the site, but he had 3 evacuations by pleurodesis. The patient has never quite been himself since then, but he is bearable pain that it comes and goes, and had been ambulatory. He has really not been amb ulatory since some time in March or February of this past year. He was in [place], and since t here, he really has not been ambulatory. We were just amazed that it is only now that he is having t he extensive evaluation. Nevertheless, the admission was warranted, as this patient had severe pain, was not responding to outpatient therapy, there was no trial or big application with opioids because the pain was so severe and the was hesitant to administer any of them, and we did not get invol jayden with this until literally 24 hours after his deplaning, and now need to stabilize his pain with t he help of the specialists, and make a recommendation once the immediate necessary test be done. The reason for his hospitalization was so that while he is on his opioids he can undergo the needed CT i maging and consultations where he would not have to travel, and this could only be done in the hospit al. There is no alternative site for this delivery. Again, the severity when the patient was seen i n the office would not allow the patient to sit for our exam, and the exams were all done mostly on t he supine position. He did travel there under the help of Toradol, which did not last him very long. So, we are seeing him this morning and awaiting for the CAT scan report. In fact, we made our roun ds, CAT scan reports were not available, and we decided to dictate a little later, waiting for the co nsultation from Dr. Camacho, and the consultation from Dr. Farah. We hesitated to call in phys ical therapy as we wanted to have a better indication as to where to proceed. He has comorbid diseases, as pointed out in the prior history and physical, including type 2 diabetes mellitus, bullous emphysema, and fatty liver, and history of the prostate CA, all playing a part in this admission. PHYSICAL EXAMINATION: Temperature 98.3 with no peaks yesterday since admission, a pulse rate of 108, a little more rapid th an what we have been used to, but perhaps this was taken at that time when moving him out of bed. Bl ood pressure 127/89, respiratory rate of 20, with an O2 sat of 96, and again, comfortable and with mu ch less pain since we began the oxycodone and OxyContin as prescribed and suggested by Dr. Duncan as a n outside consult just before coming to the hospital. He was very affirmative about the required wor k being done as an inpatient in order to expedite the focus of the disease. Family was made aware th at the prognosis will depend on the identification of the cause, but that at the present, indicators were not very favorable and it all looked malignant from the description of the radiologist on the MR I depicting the pathological fracture of T11. Fingerstick glucose since admission were very acceptable. No labs were repeated this morning, as his labs were drawn later on in the evening yesterday, and we found nothing abnormal at the time. He is , again, with much more relief of his pain and finally has smiled since his last 2 weeks here back in the [facility], and he is anxious for the relief that he experienced with this pain. He is willing to u [facility] physical therapy. We are just waiting for the permission from Dr. Farah. is at be dside and agreeable with our indications. Pupils are equally round and reactive to light and accommodation. Extraocular movement is intact. N o jaundice in the sclerae. NECK: Supple. No cervical lymphadenopathy. Some restriction of flexion on the neck, but again, thi s is all in the bed. He is not able to sit for any prolonged period of time and he fears doing that, so he has been asking the staff not to elevate the head of the bed at too acute an angle, as his meera n returns. No bruit appreciated at the neck. HEART: Regular in rhythm. No S3 appreciated. No murmur. LUNGS: Diminished breath sounds, but overall no adventitious sounds. ABDOMEN: Soft, bowel sounds are present. He has been having bowel movements, but does have a prescr iption for Movantik suggested by Dr. Duncan on the evaluation and recommendation for his oxycodone and OxyContin. He did write the prescriptions for him to take home once we are done with our present ma major. NEUROLOGICALLY: He does appear to have sensation all over, in fact, exacerbation of the pain in the back whenever he moves. IMPRESSION: Pathological fracture of T11. Awaiting for clearance to try a brace or other mode of th erapy once Dr. Farah sees him. SECONDARY DIAGNOSES: 1. 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 Primary yet to be determined. 2. History of prostate cancer. 3. Bullous emphysema. 4. Pulmonary nodule. PLAN OF CARE: Await for recommendations from Drs. Camacho and Gagan. As we are dictating this at a later time, his CAT scan of chest and abdomen became available later on in the morning/early af ternoon. FINDINGS: Multiple lesions in the liver, largest measuring 7.5 cm, suspicious for metastatic disease . Solid lesion versus dense cyst in the left kidney. Lytic bone lesion in the T11 vertebral body an d the right ischium, as well as the left lower ribs. The recommendations appear to be for a biopsy as we note from Dr. Perdue, and perhaps a CAT scan-guided biopsy would help with the pathology. If the fracture is pathological he may benefit from palliative radiation. However, will need to get further workup, which would have to be by biopsy or other chloe mmendation from Dr. Camacho. The note from Dr. Farah is that an open biopsy would most likely be the last recourse, and we appreciate the inputs from the consultants. Will present it in the morn ing to the family. The possibility of a plasmacytoma versus myeloma, versus prostate metastases or i ncluded in the differential diagnosis by Dr. Farah, and he declines neural decompression at the moment nor any spinal stabilization. So, we will ask interventional radiology to assist in the proc urement of the biopsy, and will then discuss with the family and have a plan possibly for an outpatie nt workup. PET scans will probably be required, but that is not an inpatient procedure. The patient 's family was made aware of that, and very frustrating the lack of the diagnosis again, but we have o nly had the case for barely a week now. Anthony Diaz MD cc: [id number] TT: 06/09/2016 21:53:28 Confirmation # [id number] Dictation # [id number]
[2016-06-09] MEDS: Sodium Chloride 0.45% 1,000 ML IV SCH (22:51)
--- NOTE | 2016-06-10 01:40 | CON ---
DATE: 06/09/2016 REASON FOR CONSULTATION: has asked us to see this patient for progressively worsening back pain, admitted for the same with a clinical diagnosis suggestive of a compression fracture related to a malignancy. HISTORY OF PRESENT ILLNESS: This is a 75-year-old male with a history of prostate cancer for the pas t 3-1/2 years on Eligard that he gets twice a year. Being treated by a Dr. Aleena Weir in [facility] and was told that his PSA was down to 0.4, now presents to the [facility], wit h worsening back pain over the last 3 months. The patient has recently been in [place] visiting his family, and was there. His pain had gotten worse and then he chose to come back home. His health specialist injected with him steroids, but did not have any relief. When he came back to the [facility], he went to see his PCP for the worsening pain. The pain that got worse even on moveme nts or coughing or sneezing where he felt that his back was going to explode. The patient was referr ed by his PMD for lumbar spine MRI on 06/04, which revealed no acute fracture. MRI of the thoracic s pine; however, revealed an acute compression fracture of T11 with posterior retropulsion and mild spi nal canal stenosis. There was abnormal marrow signal at the left of T11 pedicle, as well as focal ab normal signal at the right of T3. The patient was admitted for pain management. While in the hospit al, also will need to control the pain, and also obtain a histologic diagnosis so as we could better treat him. The patient has already been seen by radiology/oncology and neurosurgeon at our request. He did a CAT scan of the chest, abdomen, and pelvis, which will be reviewed in detail below. REVIEW OF SYSTEMS: The patient has been having significant back pain over the last several months th at has gotten progressively worse. While he was in [place], he has seen some local MDs who had d one some tests, but could not help him as the pain was progressively worsening. He and his laura ded to come back to the [facility] for further management. The patient complains of abdominal meera n, constipation, and nausea. Back pain is rather significant. On a scale of 1-10 it is at least a 1 0. PAST MEDICAL HISTORY: Chronic obstructive pulmonary disease and is under the care of Dr. Headley. The patient used to be a light smoker and was smoking 10 cigarettes a day for many years since age 29. Quit smoking last year. The patient has a history of Porter's esophagus and history of a right kidney cyst removal. He tells me that about 2 years ago, he was in the hospital with a collapse of the lung related to emphysema and is being monitored while he was here. At that time had a chest tub e that is being monitored by extra hand. The patient has a history of gastroesophageal reflux dis ease. He has type 2 diabetes. ALLERGIES: No known allergies at this time, and no significant reactions to any of the anesthetics. PAST SURGICAL HISTORY: The patient has a history of appendectomy and cholecystectomy. MEDICATIONS THAT HE IS CURRENTLY ON: Are the following: He is on albuterol 2.5 mg 3 mL inhaled 3 ti mes a day. He is on Brovana 15 mcg q. 12 hours. He is on aspirin 81 mg daily, Pulmicort Respules 0. 5 mg inhaled q. 12 hours. He is on Cymbalta 60 mg p.o. daily. He is on metoprolol 50 mg p.o. daily. He is on Rapaflo 8 mg p.o. daily. He is on oxycodone extended release 10 mg p.o. q. 12 hours. He is on oxycodone immediate release 5 mg p.o. q. 6 hours p.r.n. for mild pain. I have also added morph ine 2 mg IV q. 4 hours for severe pain. He is on Senokot tablets daily. He is on Spiriva 18 mcg inh aled daily. He is on Topamax 25 mg p.o. at bedtime. PHYSICAL EXAMINATION: GENERAL: The patient is awake, alert. He is examined in bed. Complaining of significant pain in th e back, but does get relieved with the IV medications. HEENT: Head is normocephalic, atraumatic. Conjunctivae pale. Sclerae anicteric. Pupils are equall y reactive to light and accommodation. NECK: Supple. There is no adenopathy. No jugular venous distention noted. LUNGS: Clear to percussion and auscultation with prolonged expiratory phase. CARDIOVASCULAR: Reveals PMI to be in the 5th intercostal space inside the midclavicular line. S1 an d S2 are normal. No gallop or murmur is heard. ABDOMEN: Soft, nontender. Bowel sounds are present. No rebound, rigidity, or guarding is noted. BACK: Reveals tenderness over the mid and the lower back at the distribution of T11-T12 region, exte nding anterior in a belt-like fashion, both in the left and in the right. NEUROLOGIC: No focal deficits are noted. EXTREMITIES: Reveal no cyanosis, clubbing, or edema. PHYSICAL EXAMINATION: VITAL SIGNS: Reveal a T-max of 98.3, pulse 108, respirations 20, blood pressure 127/89, pulse ox of 96% on room air. LABORATORY DATA: From today were reviewed. White count is 7.7, hemoglobin 13.3, hematocrit 40.4, pl atelet count 215,000. Sodium is 138, K is 4.9, chloride 102, CO2 25, BUN 15, creatinine 1.1, blood s ugar is 103. The patient's x-rays were reviewed and they revealed the following: Specifically, the CAT scan of the abdomen and pelvis along with the MRI. MRI definitely shows a lesion at T11, consist ent with metastatic disease. There is also a lesion at T3. On the CAT scan of the chest, abdomen, a nd pelvis, multiple abnormalities are picked up. The patient has complex changes in the liver. Ther e is a large hypodense mass in the liver measuring 7.4 cm. There are several smaller masses, surroun ding lesions are also seen. Findings most compatible with metastatic cancer. Examination of the CT of the lungs reveals multiple pulmonary nodules with minimal emphysematous changes. There is also le ft-sided lesion in the rib on images shows no findings of any significant disease at this time. Examination of the kidneys and ureters reveals a 2 cm lesion along the medial aspect of the kidney that measures 33 units, could be a dense cyst or a mass itself at this time. The patient has l ytic lesions in the T11 vertebral body, and he also has a lytic lesion at the right as well as the left lower rib. ASSESSMENT NOTES AND PLAN: The patient has metastatic disease, primary site is unknown, does not alex ear to be compatible with prostate even though the workup is in progress. I had detailed discussion with the patient, through his niece, who was my quantitative researcher for today's consultation. I also spoke t o his , Mrs. Loo, over the phone. I explained to her my findings. I had spoken to Dr. Jaspal Smith after reviewing Dr. Farah's note, and speaking to Dr. Perdue. Dr. Jaspal Smith also reviewe d the films and felt very strongly that the best way to attempt to get a diagnosis and also alleviate the pain, would be to do a CT-guided biopsy of the spinal lesion and at the same time do a kyphoplas ty, which would dramatically reduce the pain. Once we have a diagnosis for the cold biopsy, we can t hen decide in which direction we should go. I do not think at this point we have to biopsy the liver lesion, but if we do so, we will do that after waiting the yield from the biopsy of the T11 spine. The patient is on small doses of Decadron as well. We will continue to monitor the patient to see if that will also give relief of pain while we are trying to ascertain the nature of the disease, even though we know it is metastatic cancer. It could be arising from the lung or from the prostate, or i t could be from somewhere else as well. Depending on the immunohistochemistry and pathologic finding s, we can make further decisions. Definitely patient will need palliative radiation to the spine elsie n after the kyphoplasty. Routine post exam instructions have been given to the patient. I have spok en in detail about my findings with the , and we are going to try to see if we can coordinate the procedure for tomorrow morning for the CT-guided biopsy and kyphoplasty at the same time. We will d iscuss with regarding the findings in detail. We will continue to follow the patient with robin nassar. Thank you for allowing me to participate in the management of this very interesting patient. Soni Camacho MD cc: [id number] TT: 06/10/2016 01:40:07 Confirmation # [id number] Dictation # [id number] tn
[2016-06-10 07:07] LABS: ADD MANUAL DIFF? NO
[2016-06-10 07:19] LABS: BASO # 0.01 K/mm3 (0.0-2.0); BASO % 0.2 % (0.0-3.0); GRAN # 4.18 (1.4-6.5); GRAN % 84.1 % (50.0-68.0); HEMATOCRIT 36.3 % (42.0-52.0); LYMPH # 0.7 (1.2-3.4); LYMPH % 13.1 % (22.0-35.0); MEAN CELL VOLUME 90.3 fL (80.0-105.0); MEAN CORPUSCULAR HEMOGLOBIN 29.4 pg (25.0-35.0); MEAN CORPUSCULAR HGB CONC 32.5 g/dl (31.0-37.0); MEAN PLATELET VOLUME 13.4 fl (7.0-11.0); MONO # 0.1 (0.1-0.6); MONO % 2.6 % (1.0-6.0); PLATELET COUNT 152 10^3/uL (120.0-450.0); RED CELL DISTRIBUTION WIDTH 14.4 % (11.5-14.5)
[2016-06-10 07:24] LABS: INR 1.04 (0.93-1.08)
[2016-06-10] MEDS: Budesonide 0.5 mg/2 ml Inhal Susp UD IH SCH ×2 (07:34→20:19)
[2016-06-10] MEDS: Arformoterol 15 mcg/2 ml Inh Sol IH SCH ×2 (07:34→20:19)
[2016-06-10] MEDS: Tiotropium 18 mcg Cap For Inhalation IH SCH (10:00)
[2016-06-10 10:03] LABS: BILIRUBIN,DIRECT 0.7 mg/dL (0.0-0.4); BILIRUBIN,TOTAL 0.8 mg/dL (0.2-1.3); TOTAL PROTEIN 7.7 g/dL (5.8-8.3)
[2016-06-10] MEDS: oxyCODONE 10 mg ER Tab (oxyCONTIN) PO SCH ×2 (10:48→22:09)
[2016-06-10] MEDS: SILODOSIN 8 MG PO SCH (10:50)
[2016-06-10] MEDS: Metoprolol Succinate 50 mg XL Tab PO SCH (11:00)
[2016-06-10] MEDS ORDERED: Iodixanol 320 MG/ML 100 ML BOTTLE IV ONE (14:47)
[2016-06-10] MEDS ORDERED: Lidocaine 2% Inj (20ml) ONE (14:47)
[2016-06-10] MEDS ORDERED: Midazolam 2 MG/2 ML VIAL ONE ×2 (15:12→15:37)
[2016-06-10] MEDS ORDERED: Oxycodone/Acetaminophen 5/325 mg Tab PO PRN (16:38)
[2016-06-10] MEDS: Sodium Chloride 0.45% 1,000 ML IV SCH (17:38)
--- NOTE | 2016-06-10 17:45 | VASCULAR ---
PROCEDURE: 1. T11 kyphoplasty. 2. T11 vertebral body biopsy. HISTORY: Severe, refractory back pain. Unresponsive to bed rest and analgesics. Malignant appearing T11 compression fracture. History of prostate CA. PHYSICIAN(S): Jaspal Smith MD. TECHNIQUE: he relative risks and indications of the procedure were explained to the patient and his and informed written consent obtained. The patient was placed prone on the arteriography table and the thoracolumbar spine prepped and draped in the usual sterile fashion. Conscious sedation and monitoring were provided throughout the procedure by a nurse. The T11 vertebral body was carefully localized with fluoroscopy. The skin and soft tissues were anesthetized with 1% Xylocaine. Under direct fluoroscopic guidance, bilateral transpedicular bone needles were placed into the posterior aspect of the T11 vertebral body. Through both needles, a biopsy of the [id number] body was performed. The specimen was sent to histology. Next bilateral 15mm bone balloons were placed in the superior and anterior portion of the T11 vertebral body. They were inflated to approximately 3.5 cc apiece with dilute contrast. The balloons were removed and 7.5 cc of barium-impregnated PMMA cement instilled into the T11 vertebral body. No extravasation was seen. The bone needles were removed. The patient tolerated the procedure well. IMPRESSION: 1. Fluoroscopically-guided T11 kyphoplasty. 2. Fluoroscopic T11 vertebral body biopsy.
[2016-06-10 18:54] LABS: TOTAL PSA <0.1 ng/mL (<=4.0)
[2016-06-11 04:28] LABS: IGG,SERUM 1209 mg/dL (694-1618); IGM,SERUM 106 mg/dL (48-271)
[2016-06-11] MEDS: Sodium Chloride 0.45% 1,000 ML IV SCH (06:45)
[2016-06-11] MEDS: Budesonide 0.5 mg/2 ml Inhal Susp UD IH SCH (07:24)
[2016-06-11] MEDS: Arformoterol 15 mcg/2 ml Inh Sol IH SCH (07:24)
[2016-06-11 07:55] VITALS: RESP 18
--- NOTE | 2016-06-11 08:09 | PN ---
DATE: 06/10/2016 The patient is in room 566, bed 2. REASON FOR CONSULTATION: Metastatic cancer with worsening pain secondary to acute compression fractu re of T11, background history of metastatic disease seen in other areas of the bone including the isc hium, left rib, along with a T11 and T3 bone lesions, T11 is the one where the body is replaced with tumor along with compression fracture of T11, patient is status post kyphoplasty and biopsy, results of which will be available to us over the next 48-72 hours. Subjectively, the patient is in some deg ree of pain, but overall feels better compared to yesterday. The patient is on IV narcotics along wi th oral oxycodone and OxyContin and also on IV Decadron. PHYSICAL EXAMINATION: GENERAL: The patient is awake, alert, and oriented. The back pain is there, but definitely better s dee the kyphoplasty. HEENT: Head is normocephalic, atraumatic. Conjunctivae pale. Sclerae anicteric. Pupils are equal ly reactive to light and accommodation. NECK: Supple. There is no adenopathy. No jugular venous distention noted. LUNGS: Clear to percussion and auscultation with prolonged expiratory phase. CARDIOVASCULAR: Reveals PMI to be in the 5th intercostal space inside the midclavicular line. S1 an d S2 are normal. No gallop or murmur is heard. ABDOMEN: Soft, nontender. No rebound, rigidity, or guarding is noted. BACK: Reveals tenderness over the mid and lower back in the distribution of T11-T12 region extending in to in a belt-like about fashion. Both in the left and right. NEUROLOGIC: Higher functions are normal. No focal deficits are noted. EXTREMITIES: Reveals no cyanosis, clubbing, or edema. The patient is status post laminectomy, statu s post biopsy at the same time. VITAL SIGNS: Stable at this time, post-laminectomy and they are as follows: T-max is 98.4, pulse is 74, blood pressure 114/77, respirations 16, O2 sat is 98% on room air. MEDICATIONS: The patient's medications were reviewed. He is on albuterol 2.5 mg t.i.d., Brovana 15 mcg inhaled q. 12 hours. He is on Cymbalta 60 mg daily, Decadron 4 mg p.o. q. 6 hours, Ecotrin 81 mg daily, morphine sulfate 2 mg IV q. 4 hours for severe pain, oxycodone 5 mg p.o. q. 6 hours p.r.n. fo r moderate to mild pain, oxycodone extended release 10 mg p.o. q. 12 hours. He is also on Percocet p .r.n. He is on Pulmicort Respules 0.5 mg inhaled q. 12 hours. He is on Senokot tablet 8.6 mg daily. He is on Rapaflo 8 mg p.o. daily. He is on IV fluid normal saline at 60 mL an hour. LABORATORY DATA: From today reveal white count of 5, hemoglobin 11.8, hematocrit 36, platelet count 152,000. Chemistries are reviewed and they reveal a direct bilirubin 0.7, total bilirubin of 0.8. A ST is 94, ALT 90, alkaline phosphatase is 140, protein is 7.7, albumin of 3.8, globulin of 3.9. CEA is 1.3. CA 19-9 is 197, which is high. Total PSA is within normal limits. ASSESSMENT NOTES AND PLAN: I discussed my findings in detail with Dr. Jaspal Smith. I spoke to Dr. Lamar nj. I spoke to , a PMD, at great length come back. I do not think he can go home yet tolerate the pain and to see if the has started working. while making arrangements for further management. Labs for a.m. have been requested. Routine post exam instructions have bee n given to the patient. The patient may need to be assessed for radiation as well once we have the a ctual pathologic diagnosis. With the elevation of CA 19-9, gastrointestinal tumors have to be also k ept in mind as lung lesions too, because the patient has lung lesions compatible with metastatic canc er to the lungs. PLAN: I will discuss my findings with in great detail. We will review the slides with the pathologist. As soon as I have some primary detail, we will plan accordingly course of action. Mean while, continue the Decadron, continue the morphine along with the oral narcotics. The patient will benefit from bisphosphonate once we have established a diagnosis of cancer. Soni Camacho MD cc: [id number] TT: 06/11/2016 01:07:45 Confirmation # [id number] Dictation # [id number] tn
[2016-06-11 08:15] LABS: ALB/GLOB RATIO 1.1 (1.1-1.8); ALKALINE PHOSPHATASE 142 U/L (38-133); ALT/SGPT 96 U/L (7-56); AST/SGOT 86 U/L (15-59); BILIRUBIN,TOTAL 0.7 mg/dL (0.2-1.3); BLOOD UREA NITROGEN 12 mg/dL (7-21); CALCIUM 9.2 mg/dL (8.4-10.5); CARBON DIOXIDE 25 mmol/L (21-33); CHLORIDE 104 mmol/L (98-107); GFR AFRICAN-AMERICAN > 60; GLUCOSE,RANDOM 167 mg/dL (70-110); SODIUM 139 mmol/L (132-148); TOTAL PROTEIN 7.3 g/dL (5.8-8.3)
[2016-06-11] MEDS: Tiotropium 18 mcg Cap For Inhalation IH SCH (09:39)
[2016-06-11] MEDS: oxyCODONE 10 mg ER Tab (oxyCONTIN) PO SCH (09:40)
[2016-06-11] MEDS: Metoprolol Succinate 50 mg XL Tab PO SCH (09:40)
[2016-06-11] MEDS: SILODOSIN 8 MG PO SCH (09:41)
[2016-06-11] MEDS ORDERED: SILODOSIN 8 MG PO SCH (09:53)
--- NOTE | 2016-06-11 09:55 | PN ---
DATE: 06/10/2016 This is a 75-year-old male who was brought to the Emergency Room after recommendation from his physia trist, Dr. Duncan, as a very fresh MRI of the lower back revealed a fresh fracture of T11 and the caro ent was rendered immobile due to severe pain that had not been responding to outpatient modalities. He had been in [place] for 3 months complaining of back pain. X-rays there failed to reveal any information. There was never a CAT scan nor an MRI of the back to our knowledge. The unfortunate pa tiegary was at risk for complications as he had underlying prostate cancer under therapy with Eligard, pulmonary nodule under surveillance by Dr. Headley, and known questionable liver cysts in the past . As the remembers, he had a pleural effusion that required hospitalization in the past year, a prolonged hospitalization as he had underlying bullous emphysema and had continued to smoke. The re ason for this admission, however, was the intractable back pain that patient could only lie supine an d had extreme difficulty on moving and he had no relief, with the pain severity constantly at 10/10 w henever he had tried to move, so he attempted to remain in bed for the largest part of the day. Lilibeth use of the need for the imaging, because of the need for consultants reviewing the case, the patient was admitted and had a consult with Dr. Camacho as the MRI suggested metastatic disease, and at the r equest of Dr. Camacho was seen by Dr. Farah to rule out neuro involvement. Subsequently, when the CAT scan of the chest and abdomen was done, the day before a mass was noted in the liver and ques tionable findings in the kidney and multiple bone findings that were suggestive of his metastatic dis ease. Dr. Jaspal Smith was consulted for radiological intervention and the option was for today to harley ve a kyphoplasty and a biopsy be obtained from the bone as the side yielding most. We have been in c ontact with Dr. Camacho and the consideration for a liver biopsy could be postponed until tomorrow if the bone biopsy that will be done at the time of kyphoplasty was insufficient. The patient was seen at the bedside. He is with his who has been the second pair of ears to rel ate and give us back information, as the patient is dealing with the new findings. As reviewed, he h as a very complex medical history. At present, we are dealing with finally managed pain on oxycodone and OxyContin and bed rest so far not precipitating any acute pain episodes. Finally the patient is able to enjoy his meals. Finally the patient is able to have some sleep and rest from the pain, so obviously he is very cooperative. VITAL SIGNS: Temperature 97.8, no peaks; pulse rate 79 and regular, blood pressure 115/71, respirato ry rate 20, and the O2 sat remaining at 96% very nicely. He is examined in bed and does not look forward too much motion as he is still in pain, and is lookin g forward to the kyphoplasty that will be done later on in the day. As we had discussed earlier, our options and hope was for a quick discharge and continuation of outpa tient therapy which we have asked Dr. Camacho about, and he will help us once the procedure is done a nd help us decide tomorrow as to the progress and the need for a subacute setting or home. The patie nt has 14 steps to manage on going home. His exit to the visits to physicians in the past week were done by sliding down the steps on his buttocks, obviously not a possibility at this moment with the p lanned kyphoplasty as a trauma may unsettle the surgery. Nevertheless, the case will be reviewed in the morning after physical therapy does their evaluation. Physical therapy on the 2nd day was postpo chris because of the planned kyphoplasty, and we were told it is not part of our routine to do until th e kyphoplasty is done. He is alert and oriented to all spheres and able to make his own decisions. He understands the impli cations and the plan of care. Extensive time was spent by the consultants and us, and the patient's appears to have a grasp of our plan of care besides the patient. MOUTH: Oral mucosa is moist. There is no thrush. NECK: Has limitation of motion from a prolonged time in bed, but he offers no major complaint of meera n, as most of his pain is concentrated in the mid to lower back. HEENT: Pupils are equally round and reactive to light and accommodation. He is responding to his pa in medication with relief. No cervical bruit appreciated. No cervical lymphadenopathy. EXTREMITIES: He is moving his extremities, upper and lower, and there does appear to be sufficient s trength in all 4 of them. At present, no noted increase in his known neuropathy from the past. There has been no consultation with his guest laundry attendant, no consultation with his neurologist pending p rogression and diagnosis. LUNGS: Clear to auscultation and percussion. He is responding to his inhalation therapy. HEART: Regular in rhythm. No S3 appreciated. No rubs, murmurs or gallops. ABDOMEN: Soft, bowel sounds are present. So far he is not complaining of constipation, but he has n ot gone to the bathroom today. Perhaps on the outside he goes every other day. The does give h im a laxative, and we have instituted Senokot as part of his regimen. He does have Movantik prescrib ed by Dr. Duncan, but that is being held outside rather than bringing to the hospital. He is not ambulatory yet, and we will see tomorrow the recommendations from physical therapy. Our go al had been to discharge patient once the diagnosis was made and the imaging was done and continue [facility], and now careful decision after the biopsy we will be ready for recommendations. W e understand that plans to have radiation therapy is part of the palliative care, but the rest will b e designated through the recommendations of Dr. Camacho. Should we need any further consultants, we will ask them in the case. At present, the limitation of what can be done as an inpatient is noted a nd we will need to defer the course of care to the very knowledgeable Dr. Camacho who will help us ch art a plan of care. The patient's wishes and ours are for pain relief, and his only concern with the discharges is the ability to go up and down his stairs that, today, he is fearful he could not manag e, but we will see what tomorrow brings. IMPRESSION: Intractable pain with recent compression fracture of T11, felt to be pathological. SECONDARY DIAGNOSES: 1. Type 2 diabetes mellitus, fairly well controlled. 2. Bullous emphysema. 3. History of prostate cancer. Labs were not available at the time of the visit and we may add that his fingerstick has had higher r eadings so we will most likely increase his metformin now that he is eating and interpret his lab res ults with the help of Dr. Camacho and await the recommendations of Dr. Jaspal Smith after the kyphopla catherine. Anthony Diaz MD cc: [id number] TT: 06/11/2016 09:55:18 Confirmation # [id number] Dictation # [id number] mn
--- NOTE | 2016-06-11 10:21 | PN ---
DATE: 06/11/2016 The patient was admitted for intractable pain secondary to a fresh T11 fracture and underwent kyphopl asty yesterday and appears to be more comfortable. We are waiting for the recommendation and evaluat ion from physical therapy to proceed. The patient, at the same time, concurrently had a biopsy of po ssibility of bony metastatic lesion and that will be in process for a few days as we are sure. In th e meantime, he is better pain controlled and we are waiting for recommendations from Dr. Camacho as t o the way to proceed. We have just been at bedside for a half hour discussing possible plan of care. One is for home discharge if able to manage his stairs, but we do not think that is possible. Seco nd one is for the needed hospital bed for his in and out of bed that also is not yet ready, so perhap s he may be a candidate for a subacute setting at which time decisions will have been able to be made because the biopsy is ready, but more important, we need to make sure that he is able to transport b ack and forth to home and to therapy. At the moment, we are awaiting the physical therapy review and I will revisit later and perhaps we will have options from Dr. Camacho, with whom we spoke yesterday . is at bedside. The patient is fully cognizant and feels well post the kyphoplasty. We are w ondering why there is a liquid diet as we had no further plans for now and we will correct that as yossi luciano is hungry. Pain has been much better controlled. Glycemia unfortunately is not as he is on IV steroids as started by Dr. Camacho for the diminished inflammation pending the biopsy results. The patient has comorbid history of a liver cyst, now felt to be perhaps one of the abnormal findings, pr ior history also of diabetes mellitus, bullous emphysema and a former smoker with pulmonary nodule th at has been closely followed and prostate cancer. Again, the improvement from admission is quite rem arkable and we will wait to see his limitations to make our plans for home discharge or transitional care where he would probably profit on account of the need to manage steps. Consideration for treatm ent for the possible malignancy cannot really take shape until the biopsy is back as his imaging seem s to have been all completed. PHYSICAL EXAMINATION: GENERAL: Today, alert and oriented to all spheres. He is in better spirits. VITAL SIGNS: No temperature peaks. Temperature today is 98.3, blood pressure 118/76, a respiratory rate of 18 with no respiratory distress and an O2 sat of 96%. We are missing incentive spirometry, w arleyh we will add today as he is mostly bedridden due to the prior pain and now we will begin expandin g his therapy with the clearance from the physical therapy review. HEENT: Pupils are equally round and reactive to light and accommodations. Oral mucosa is moist and he is hungry. NEUROLOGIC: There is no neurological deficit appreciable. NECK: Supple. No cervical lymphadenopathy. BACK: He underwent the kyphoplasty yesterday and says he feels his back "as smooth as a baby" as the y had to shave the site in order to perform the procedure. ABDOMEN: Soft, bowel sounds are diminished. He has not had a bowel movement now for 2 days. He is on a laxative, but perhaps has not taken effect yet as he was on clear liquids yesterday and apparent ly was put on clear liquids this morning, which we will change later. LUNGS: Clear to auscultation and percussion, slightly diminished. HEART SOUNDS: Regular. No S3 appreciated. No murmur. EXTREMITIES: Full range of motion. LABORATORIES: Are now becoming more indicative. Unfortunately, a CA 19-9 of 197. A CEA is only 1. 2 and his serum proteins are pending. The alkaline phosphatase is 140 and his liver enzymes also are off, 94 and 90, AST and ALT respectively with a total bilirubin of 0.8. His glucose, because of the steroids I would imagine, it is continuing to go up. The IgG, IgA, IgM are all normal and we are pe nding Dr. Camacho's return. He is comfortable on the oxycodone and OxyContin as he had been and perhaps we can soon stop his IV f luids as he is tolerating his diet and is hungry after a 3-month loss of appetite due to the pain. T he patient is going to require a hospital bed in order to be discharged as he cannot easily get up ou t of bed. His pain is improved today, but has kept him on the bedside and requires a hospital bed fo r frequent repositioning that takes place because of his recurrent pain. To prevent aspiration becau se he is doing most of the things in bed, the head had to be elevated more than 30 degrees and he has got underlying COPD and we feel aspiration would really complicate the present issues. He is unable to sit for a prolonged period of time, so the meals have been at the bedside from what we understand before his admission. This is no longer acceptable. On discharge, we have to make sure that he engel s not aspirate from the prolonged time in bed. Nevertheless, we will see the limitations of his ambu lation once physical therapy comes in and we are also planning on having Dr. Aviles review of the c ase as he is his attending nursing home physician and knows the case from before. IMPRESSION: Status post kyphoplasty for what is felt to be metastatic bone disease, primary to be de termined. SECONDARY DIAGNOSES: 1. Abnormal CA 19-9. 2. Liver cyst/mass. 3. Abnormal liver function tests. 4. Bullous emphysema. 5. Type 2 diabetes mellitus. PLAN OF CARE: Depends on recommendations from Dr. Camacho. We had been looking forward to sending h im home, but a hospital bed is not available and he has to manage steps in order to go home. Limitat ions will be further described with the physical therapy and perhaps we will need to consider subacut e setting. Anthony Diaz MD cc: [id number] TT: 06/11/2016 10:20:18 Confirmation # [id number] Dictation # [id number] en
[2016-06-11 12:04] LABS: ABNORMAL PROTEIN BAND 1 0.36 g/dL (None Detected); BETA 1 GLOBULIN 0.5 g/dL (0.4-0.6); BETA 2 GLOBULIN 0.5 g/dL (0.2-0.5); GAMMA GLOBULIN 1.2 g/dL (0.8-1.7)
[2016-06-11] MEDS: oxyCODONE 5 mg Immediate Release Tab PO PRN (14:15)
--- NOTE | 2016-06-11 16:33 | PN ---
DATE: 06/11/2016 The patient is in room 567, bed 2. SUBJECTIVE: This is a 75-year-old male who was admitted through the ER with progressively worsening back pain. In the process of workup, patient was noted to have metastatic disease to T11, maybe lesi on at T3 as well with compression fracture T11 with what appears to be marrow involvement of T11 itse lf. The patient is also noted to have a ridge-like lesion in the medial aspect of the right kidney. Along with this, there were complex cysts in the liver consistent with metastatic disease to the [facility] as well. The patient also has evidence of metastatic disease to the lungs. In view of significan t back pain and the need for a diagnosis to be obtained, patient underwent kyphoplasty, at the same t zora biopsy of the lesion was obtained to see the pathologist today. The biopsy is being processed be cause there is a soft tissue component to it and we should have the results of it by Tuesday afternoon . The patient is status post kyphoplasty yesterday and is already feeling more comfortable. He tell s me that the pain is substantially decreased. Currently, the patient is on long-acting and short-ac ting oxycodone, plus he is getting morphine as needed for pain, plus he is on IV Decadron to relieve the inflammation related to the metastatic cancer. We do know for a fact that it is a malignancy, bu t we do not know what type of malignancy it is. One of the markers CA 19-9, however, is elevated, wh ich would signify this is coming either from the lung or from a gastrointestinal origin. The patient 's glycemia has, of course been affected by the steroids which will be tapered gradually once the rad iation is also instituted. I spoke with early today. If patient continues to do well, we w ill transfer him to the TCU for deconditioning and watching him, especially for pain control and init iating radiation therapy as soon as it is feasible while they are making treatment plans for further treatment initiation with either chemotherapy or targeted therapy. PHYSICAL EXAMINATION: GENERAL: Subjectively, the patient is feeling better. Denies any nausea or vomiting. Pain on a sca le of 0-10 is down to 2. The patient is awake, alert, and oriented, in better spirits. VITAL SIGNS: Stable. T-max is 98.4, blood pressure is 118/76, respirations 18 per minute, and O2 sa t of 96%. HEENT: Head is normocephalic, atraumatic. Conjunctivae are pale. Sclerae are anicteric. Pupils ar e equally reactive to light and accommodation. Examination of the oropharynx reveals no oropharyngea l lesions. NECK: Supple. There is no adenopathy. No jugular venous distention noted. LUNGS: Clear to percussion and auscultation. CARDIOVASCULAR: Reveals S1 and S2 to be normal. No gallop or murmur is heard. BACK: Had kyphoplasty. He has not had any significant discomfort at this time. ABDOMEN: Soft, nontender. Bowel sounds are present. No rebound, rigidity or guarding is noted. LABORATORY DATA: Reveals a CA 19-9 of 197. PSA is within normal limits. Alkaline phosphatase is 14 0. Liver enzymes are 94 and 90 for AST and ALT respectively. Blood sugars are on the high side. Se rum protein electrophoresis is normal. Serum immunofixation is pending. The patient is comfortable on the oxycodone and OxyContin. He is tolerating his diet reasonably well. ASSESSMENT NOTES AND PLAN: The patient is status post kyphoplasty for metastatic carcinoma. Etiolog y of the primary is still to be ascertained, but with documented evidence of mets to the skelet on, back, the ribs, and the spine along with liver mets and lung metastases. Type 2 diabetes mellitu s, bullous emphysema and elevated tumor marker CA 19-9. PLAN: I discussed with Dr. Aviles and also spoke to the patient's . Plan would be to keep the patient in the hospital, transfer to TCU where he can be monitored closely for response to our medic ations and also initiate radiation as soon as the tissue diagnosis is available for us. We will tape r the steroids gradually once the radiation starts kicking in. Can taper the steroids at that time. I do not think we need to look into biopsying the liver as we have adequate tissue from the biopsy a nd kyphoplasty done yesterday. Routine post exam instructions have been given to the patient. I spo ke in detail to the patient and his and explained to her what our thought processes are and abou t our plans for the patient. Soni Camacho MD cc: [id number] TT: 06/11/2016 16:32:54 Confirmation # [id number] Dictation # [id number] rn
[2016-06-11 18:16] VITALS: BP 107/67; PULSE 63; TEMP 98.5; O2SAT 93
--- NOTE | 2016-06-11 21:01 | CON ---
DATE: 06/11/2016 Seen and examined at bedside earlier today. REQUEST FOR CONSULT: For an elevated CA 19-9, liver lesions and bone metastasis. HISTORY OF PRESENT ILLNESS: This is a 75-year-old male with a past medical history of prostate cancer, diabetes mellitus type 2, Porter's esophagus who was brought to the Emergency Room with complaints of severe back pain and complaint of weight loss. The patient was sent to the Emergency Room by for complaints of persistent back pain that was increasing in intensity. The patient just came back from [place]. The patient while in [place] had a spinal block, but still having pain. He had an outpatient MRI which revealed thoracic spine fracture suggestive of possible metastatic disease. The patient is status post kyphoplasty with bone biopsy. He underwent a CT scan of the chest, abdomen and pelvis which revealed multiple lesions in the liver; the largest measuring 7.5 cm suspicious for metastatic disease as well as lytic bone lesions in the T11 vertebral body and right ischium as well as left lower rib. This patient has had several CT scans in the past. He had a CT scan done back in 08/2009 which showed this patient does have history of liver lesions in the past. He did have a CT scan, the most recent compare he had in 08/24/09 and also in 05/[address] scan of abdomen and pelvis with no contrast, which showed simple cysts in the liver. He does complain of weight loss. Denies any nausea or vomiting, no abdominal pain. Denies any change in bowel habits or any overt gastrointestinal bleed. His last endoscopy noted was back in 08/2012, found to have gastritis, rule out Porter's esophagus , the biopsies of the esophagus were negative at that time for intestinal metaplasia. PAST MEDICAL HISTORY: History of prostate cancer, chronic constipation, nonalcoholic steatohepatitis, diabetes mellitus type 2, neuropathy, hyperlipidemia, renal cysts, history of simple cysts in the liver and chronic dilated bile ducts. PAST SURGICAL HISTORY: Cholecystectomy, appendectomy, herniorrhaphy, partial left nephrectomy, carpal tunnel release. FAMILY HISTORY: Father [place]. Mother with COPD and KS. Brother with prostate and colon cancer. SOCIAL HISTORY: Denies any ETOH. Occasional tobacco use. Denies any substance abuse. ALLERGIES: No known drug allergies. MEDICATIONS: Reviewed as per MAR. REVIEW OF SYSTEMS: Systems were reviewed with positive findings, see HPI. VITAL SIGNS: Temperature is 98.3, blood pressure 118/76, pulse 60, respirations 18, 96 on room air. LABORATORY DATA: WBC is 5.0, H and H is 11.8 and 36.3, platelets is 152. PT 11.2, INR is 1.04. Sodium 139, K is 5.0, BUN 12, creatinine 1.0. Total bilirubin is 0.7, AST 86, ALT 96, alkaline phosphatase is 142. DIAGNOSTICS: Chest x-ray: No active pulmonary disease, no pulmonary nodules, masses or infiltrates. CT scan of the chest, abdomen and pelvis: Report was reviewed. It is reporting multiple lesions in the liver, the largest measuring 7.5 cm, suspicious for metastatic disease; solid lesion versus dense cyst in the left kidney; lytic bone lesions in the T11 vertebral body and the right ischium as well as left lower rib; lymph nodes unremarkable, no enlarged lymph nodes; multiple pulmonary nodules are seen, minimal emphysematic changes are seen; there is a left-sided rib lesion. PHYSICAL EXAMINATION: HEENT: Sclerae are anicteric. NECK: Supple. CARDIAC: S1, S2. LUNGS: Sounds are clear. ABDOMEN: With bowel sounds, soft, nontender. No rebound or guarding. No organomegaly. EXTREMITIES: No edema. BACK: The patient does have some tenderness to mid and lower back. NEUROLOGIC: The patient is awake, alert, and oriented. ASSESSMENT: This is a 75-year-old male with a history of prostate cancer, came with complaints of severe back pain and weight loss, found to have T11 fractures with concerns of metastatic disease. He is also noted to have elevated CA 19-[address] scan of chest, abdomen and pelvis reporting lung lesions as well as large liver lesions. PLAN: The patient had a status post kyphoplasty with bone biopsy, follow up the pathology which is still pending. Monitor his liver function tests. Request for MRO/MRCP w/wo contrast, check hepatitis panel, check AFP level. The patient has history of constipation. He is already on Senokot, will continue that. He is on morphine and oxycodone for pain, is on Decadron. He is going to be planned for transfer to the TCU. Follow up the patient's bone biopsy. The patient is also being followed by oncology. Thank you for this consult and for allowing us to participate in your patient's care. We will make further recommendations based upon the patient's clinical course. The patient was seen and case discussed with Dr. Aviles. Soraida CUMMINS cc: [id number] TT: 06/11/2016 21:00:45 Confirmation # [id number] Dictation # [id number] jn MTDD
== END 2016-06-11 20:45 | DRG 478 ==
LOC: ED 14:36 → ERH 17:39 → 5RNO 22:38
PROVIDERS: ADMIT Family Medicine; ATTEND Family Medicine
PROC: 0PS43ZZ Reposition Thoracic Vertebra, Percutaneous Approach (ICD-10-PCS; principal; 2016-06-10)
PROC: 0P943ZX Drainage of Thoracic Vertebra, Percutaneous Approach, Diagnostic (ICD-10-PCS; 2016-06-10)
PROC: 0PU43JZ Supplement Thoracic Vertebra with Synthetic Substitute, Percutaneous Approach (ICD-10-PCS; 2016-06-10)
DX: C79.51 Secondary malignant neoplasm of bone (principal); M84.58XA Pathological fracture in neoplastic disease, other specified site, initial encounter for fracture; C78.7 Secondary malignant neoplasm of liver and intrahepatic bile duct; C78.00 Secondary malignant neoplasm of unspecified lung; E11.22 Type 2 diabetes mellitus with diabetic chronic kidney disease; I48.0 Paroxysmal atrial fibrillation; D64.9 Anemia, unspecified; K59.09 Other constipation; G89.3 Neoplasm related pain (acute) (chronic); F17.200 Nicotine dependence, unspecified, uncomplicated; N18.9 Chronic kidney disease, unspecified; K22.70 Barrett's esophagus without dysplasia; K21.9 Gastro-esophageal reflux disease without esophagitis; J43.9 Emphysema, unspecified; N43.3 Hydrocele, unspecified; K44.9 Diaphragmatic hernia without obstruction or gangrene; E55.9 Vitamin D deficiency, unspecified; I45.10 Unspecified right bundle-branch block; G60.9 Hereditary and idiopathic neuropathy, unspecified; E78.5 Hyperlipidemia, unspecified; G89.4 Chronic pain syndrome; Z79.84 Long term (current) use of oral hypoglycemic drugs; Z79.82 Long term (current) use of aspirin; Z85.46 Personal history of malignant neoplasm of prostate

== ENCOUNTER 2016-06-11 20:45 | Inpatient (IN) | payer OTHER, BC ==
[2016-06-11] MEDS ORDERED: Albuterol 0.083% Inhal Sol (2.5 mg/3 mL) UD IH PRN (21:51)
[2016-06-11] MEDS ORDERED: Morphine 2 mg/ml ISec IVP PRN (21:57)
[2016-06-11] MEDS ORDERED: Oxycodone/Acetaminophen 5/325 mg Tab PO PRN (21:57)
[2016-06-11] MEDS: oxyCODONE 10 mg ER Tab (oxyCONTIN) PO SCH (22:18)
[2016-06-11] MEDS: SILODOSIN 8 MG PO SCH (23:22)
[2016-06-11 23:48] VITALS: BMI 26.9
[2016-06-11] MEDS ORDERED: Pneumococcal 23-Valent Vaccine IM ONE (23:48)
[2016-06-12] MEDS: Arformoterol 15 mcg/2 ml Inh Sol IH SCH ×2 (07:14→19:30)
[2016-06-12] MEDS: Budesonide 0.5 mg/2 ml Inhal Susp UD IH SCH ×2 (07:14→19:30)
[2016-06-12] MEDS ORDERED: Arformoterol 15 mcg/2 ml Inh Sol IH SCH (08:00)
[2016-06-12] MEDS: Tiotropium 18 mcg Cap For Inhalation IH SCH (09:19)
[2016-06-12] MEDS: Metoprolol Succinate 50 mg XL Tab PO SCH (09:22)
[2016-06-12] MEDS: oxyCODONE 10 mg ER Tab (oxyCONTIN) PO SCH ×2 (09:29→22:15)
[2016-06-12] MEDS ORDERED: POLYETHYLENE GLYCOL 3350 17 GM/Dose PACKET PO SCH (16:30)
[2016-06-12] MEDS ORDERED: POLYETHYLENE GLYCOL 3350 17 GM/Dose PACKET PO ONE (17:17)
--- NOTE | 2016-06-12 17:37 | PN ---
DATE: 06/12/2016 The patient was admitted to the transitional care unit for rehabilitation. He was hospitalized for intractable pain due to compression, pathological fracture in lower thoracic spine. The patient also had kyphoplasty done. He is currently on oxycodone. During hospitalization, he was also found to have metastatic lesions in his liver. The patient is feeling better. He states that his pain has improved since kyphoplasty. He was able to ambulate today. He has a fair appetite. He complains of constipation. He denies any abdominal pain, nausea or vomiting. PHYSICAL EXAMINATION: VITAL SIGNS: His temperature is normal, pulse 66, blood pressure 118/74, respiratory rate 18. GENERAL: The patient is comfortable in bed, alert, awake, oriented. HEENT: Head is normocephalic, atraumatic. Oral mucosa is moist. NECK: Supple, no JVD, no neck masses. LUNGS: Clear to auscultation. HEART: Regular rhythm and rate. ABDOMEN: Soft, nontender, nondistended. EXTREMITIES: With no edema. BACK: There is some tenderness in the lower thoracic back area NEUROLOGIC: The patient moves all extremities. No neurological deficits noted. DIAGNOSTIC TESTS: Were not done this morning. ASSESSMENT: 1. Thoracic pathological vertebral fracture status post kyphoplasty with severe pain, admitted for rehabilitation. 2. Metastatic liver masses, etiology to be determined. 3. Abnormal CA 19-9 level. 4. Type 2 diabetes mellitus. 5. Constipation. PLAN OF TREATMENT: He will continue physical therapy. We will monitor for safety with ambulation to prevent falling. Awaiting thoracic back spine biopsy report. Will continue present medication with pain management. Cyndi Limon MD cc: [id number] TT: 06/12/2016 17:36:52 Confirmation # [id number] Dictation # [id number] adriano HANCOCK
[2016-06-12] MEDS: SILODOSIN 8 MG PO SCH (22:17)
--- NOTE | 2016-06-12 23:44 | PN ---
DATE: 06/12/2016 This patient was seen and evaluated earlier. Discussed with the patient's who was at bedside. On examination, temperature is 98.1, pulse 63, blood pressure 140/76 HENT: Atraumatic. Anicteric. NECK: Supple. HEART: S1, S2 heard. LUNGS: Bilateral air entry present. ABDOMEN: Soft. There is no tenderness. EXTREMITIES: No edema, no cyanosis. NEUROLOGICALLY: Alert, oriented. Moves all the extremities. LABORATORY DATA: No labs done today. IMPRESSION: This 75-year-old patient admitted with back pain, pathology fracture thoracic vertebra, status post kyphoplasty, but the biopsy report pending. Appeared to have the metastatic disease, but the tumor markers showed only elevated CA 19-9. CEA was normal. Total is also normal. OTHER COMORBIDITIES: Include diabetes mellitus, history of constipation. RECOMMENDATIONS: 1. Followup of the biopsy report. 2. In view of this elevated liver enzymes and also CA 19-9, and hepatic lesions, it is reasonable to do an MRI with and without contrast, and with MRCP to further evaluate. Thank you very much for allowing us to participate in the care of the patient. This has been ordered . Will continue to closely follow up his care and suggest further management based on the clinical c ourse. Leyda Aviles MD cc: [id number] TT: 06/12/2016 23:44:18 Confirmation # [id number] Dictation # [id number]
--- NOTE | 2016-06-13 04:01 | PN ---
DATE: 06/12/2016 SUBJECTIVE: This patient was seen and evaluated earlier. The patient's was at bedside. "I'm t olerating the diet." No complaints of any abdominal pain. PHYSICAL EXAMINATION: VITAL SIGNS: Temperature is 98.1, blood pressure 114/76, pulse 63, respirations 18. HEENT: Atraumatic, anicteric. NECK: Supple. HEART: S1, S2 heard. LUNGS: Bilateral air entry present. ABDOMEN: Soft. There is no mass palpable. No tenderness. EXTREMITIES: No edema. No cyanosis. BACK: There is some tenderness in the lower thoracic area. IMPRESSION: 1. This is a 75-year-old patient, who was found to have a compression fracture of the thoracic verte bra. Status post hyperplastic biopsy. Etiology is unclear. The patient does have hepatic lesions. Diabetes mellitus, constipation are his other comorbidities. The CT scan shows the liver lesions, a nd elevated CA 19-9. The patient did have surgeries in the past for stone, and had a complicat ed postoperative course. Rule out probable metastatic disease. Thoracic pathology gave pressure of the thoracic vertebra. 2. Hepatic lesions, rule out metastatic disease. 3. Elevated CA 19-9. 4. Other comorbidities include hypertension and dyslipidemia. In view of his elevated CA 19-9 and hepatic lesions, it is reasonable to consider further evaluation. I have requested for an MRI of the abdomen with and without contrast with MRCP to further evaluate. Thank you very much for allowing us to participate in the care of the patient. Leyda Aviles MD cc: [id number] TT: 06/13/2016 04:00:25 Confirmation # [id number] Dictation # [id number] vn
[2016-06-13] MEDS: Arformoterol 15 mcg/2 ml Inh Sol IH SCH ×2 (07:37→20:22)
[2016-06-13] MEDS: Budesonide 0.5 mg/2 ml Inhal Susp UD IH SCH ×2 (07:37→20:22)
[2016-06-13] MEDS: oxyCODONE 10 mg ER Tab (oxyCONTIN) PO SCH ×2 (09:06→21:42)
[2016-06-13] MEDS: Tiotropium 18 mcg Cap For Inhalation IH SCH (09:07)
[2016-06-13] MEDS: Metoprolol Succinate 50 mg XL Tab PO SCH (09:08)
[2016-06-13 09:16] LABS: HEMATOCRIT 38.4 % (42.0-52.0); MEAN CELL VOLUME 91.4 fL (80.0-105.0); MEAN CORPUSCULAR HEMOGLOBIN 29.3 pg (25.0-35.0); MEAN PLATELET VOLUME 13.1 fl (7.0-11.0); RED CELL DISTRIBUTION WIDTH 14.6 % (11.5-14.5); WHITE BLOOD COUNT 8.4 10^3/ul (4.5-11.0)
[2016-06-13 09:28] LABS: ALKALINE PHOSPHATASE 162 U/L (38-133); ALT/SGPT 96 U/L (7-56); AST/SGOT 71 U/L (15-59); BILIRUBIN,TOTAL 0.5 mg/dL (0.2-1.3); BLOOD UREA NITROGEN 18 mg/dL (7-21); CARBON DIOXIDE 23 mmol/L (21-33); CHLORIDE 102 mmol/L (95-110); GFR AFRICAN-AMERICAN > 60; GLUCOSE,RANDOM 152 mg/dL (70-110); POTASSIUM 4.9 mmol/L (3.6-5.0); SODIUM 136 mmol/L (132-148); TOTAL PROTEIN 7.6 g/dL (5.8-8.3)
[2016-06-13] MEDS: Enoxaparin 40 mg Syringe SC SCH (12:47)
--- NOTE | 2016-06-13 14:22 | PN ---
DATE: 06/13/2016 The patient remains in transitional care unit. He was admitted for intractable thoracic pain after pathological fracture and kyphoplasty. He is feeling better. He denies significant pain. The patient was able to ambulate with walker. The patient complains of persistent constipation. He denies any nausea or vomiting. PHYSICAL EXAMINATION: VITAL SIGNS: Stable. His temperature is 97.7, blood pressure 123/77, pulse 67 and respiratory rate 18. GENERAL: He is comfortable in bed, alert, awake, oriented. HEENT: Head normocephalic, atraumatic. Oral mucosa is moist. NECK: Supple. LUNGS: Clear to auscultation. BACK: There is tenderness of the posterior lower back, thoracic spine back. EXTREMITIES: With no edema, no calf tenderness. His chemistry this morning showed normal electrolytes, persistently elevated liver enzymes, but slightly trending down. His thoracic vertebral pathology is still pending. ASSESSMENT: 1. Thoracic pathological vertebral fracture with intractable pain, status post kyphoplasty, admitted for rehabilitation, clinically improved and better pain control. 2. Metastatic liver masses, etiology to be determined. 3. Chronic constipation. 4. Type 2 diabetes mellitus. PLAN OF TREATMENT: Continue physical therapy. Continue pain control. Will increase dose of Senokot and add glycerin suppository for constipation. Will avoid Lovenox for deep venous thrombosis prophylaxis. Cyndi Limon MD cc: [id number] TT: 06/13/2016 14:21:49 Confirmation # [id number] Dictation # [id number] en MTDD
[2016-06-13] MEDS: SILODOSIN 8 MG PO SCH (21:43)
[2016-06-14] MEDS: Budesonide 0.5 mg/2 ml Inhal Susp UD IH SCH ×2 (07:18→20:42)
[2016-06-14] MEDS: Arformoterol 15 mcg/2 ml Inh Sol IH SCH ×2 (07:18→20:41)
--- NOTE | 2016-06-14 09:00 | PN ---
DATE: 06/13/2016 The patient is in [facility], room 302, bed 1. PROBLEMS: This is a -year-old male, who was admitted to the acute side with worsening back meera n over the past 3 months. Workup had revealed a compression fracture at T11 along with metastatic di sease to T3, left ribs, right ischium. The patient underwent emergency kyphoplasty at the same time obtaining core samples for tissue diagnosis. Results of which are still pending. Will be available by Tuesday. The patient, in the meantime, has required decreased pain requirements and has been feeling a whole lot better and has been getting both IV and p.o. narcotics along with IV Decadro n which has been affecting his sugar, but overall the patient has been feeling better. He has been t ransferred to the transitional care unit so could adjust the medications and then possibly start him on radiation once we have a diagnosis. His CA 19-9 is elevated, which is with either a lung or primary from the GI tract. Subjectively, the patient says he feels significantly better with reduct ion of the pain by more than 50%. He was able to ambulate with a walker. The patient complains of p ersistent constipation, but no nausea or vomiting. PHYSICAL EXAMINATION: GENERAL: The patient is awake, alert, and oriented. VITAL SIGNS: T-max is 98.4, blood pressure is 123/77, pulse 67, respirations 18 per minute. HEENT: Head is normocephalic, atraumatic. Conjunctivae pale. Sclerae are anicteric. Pupils are e qually reactive to light and accommodation. Examination of the oropharynx reveals no oropharyngeal l esions. NECK: Supple. There is no adenopathy. LUNGS: Clear to percussion and auscultation. BACK: Reveals tenderness in the posterior back without any new findings. EXTREMITIES: Reveals no cyanosis, clubbing, or edema. LABORATORY DATA: Reveals normal electrolytes. Persistently elevated liver enzymes, which are trendi ng down, and pathology on the biopsy is still pending. ASSESSMENT NOTES AND PLAN: Compression fracture at T11 secondary to metastatic disease; abnormal tino er functions, probably related to the liver metastases seen on the CAT scan; chronic constipation; ty pe 2 diabetes; chronic obstructive pulmonary disease; lung lesions as well picked up on the CAT scan. Plan is to continue physical therapy, continue narcotics, continue the steroids, and then taper it once the radiation gets started for the back, which will be necessary. Routine post exam instruction s have been given to the patient. Labs for a.m. have been requested. If the constipation continues, we will suggest adding Amitiza 24 mcg twice a day to the regimen to help him move his bowels. Soni Camacho MD cc: [id number] TT: 06/14/2016 00:37:18 Confirmation # [id number] Dictation # [id number] tn
[2016-06-14] MEDS: Metoprolol Succinate 50 mg XL Tab PO SCH (10:08)
[2016-06-14] MEDS: Tiotropium 18 mcg Cap For Inhalation IH SCH (10:09)
[2016-06-14] MEDS: Enoxaparin 40 mg Syringe SC SCH (10:09)
[2016-06-14] MEDS: oxyCODONE 10 mg ER Tab (oxyCONTIN) PO SCH ×3 (10:12→22:41)
--- NOTE | 2016-06-14 10:29 | PN ---
DATE: 06/14/2016 A 75-year-old male who is being followed with Dr. Camacho and Dr. Aviles for a suspected metastatic fracture, pathologic, affecting T11 with spread to T3 and possible other sites including the liver, who is in transitional care for rehabilitation to manage stairs before he can be discharged as he has had intractable, pain reason for his admission, when it was discovered he had this pathological frac ture. He has been doing well with pain control since the admission on the acute side and is transfer red over to the subacute waiting for initiation of subsequent therapy, possibly radiotherapy, and the rest will be determined once the pathology is available, but requiring the hospitalization as he has stairs at home and was totally bedridden on arrival and is finally now walking with a walker and has yet to handle stair management. He is a little sad this morning when visited at bedside with his wi fe, as he was told that today would be the day for the diagnosis from the pathology. We have yet to receive any reports. He has been stable with his blood pressure with some increase of the sugar as h e notes and volunteers, and finally had some successful bowel movements but insufficient in his estim ation earlier on this a.m. He is aware of the concern for diagnosis. PAST MEDICAL HISTORY: Reviewed. No new findings to his comorbid COPD, bullous emphysema, type 2 nasir betes mellitus. PHYSICAL EXAMINATION: VITAL SIGNS: Not listed this morning. Reviewing from yesterday, he remained with stable blood press ure reading, afebrile with 97.7 being the peak, 129/80 blood pressure in the afternoon, with a pulse rate of 65 regular and an O2 sat of 96 percentile which is excellent for patient. LABORATORY DATA: Ordered by Dr. Camacho to update, and his H and H are at 12.3 and 38.4 with a satish l platelet count of 167. Glucose at the time of draw was 274, high for his reading, but he is only o n once a day metformin (not 2) and we probably should resume the twice a day metformin given the poor glycemic control, but will withhold as there is plan for further contrast with the MRCP pending. Hi s liver enzymes remain more or less stable at 71 and 96, AST and ALT respectively, and the alkaline p hosphatase of 162. Bilirubin is unremarkable. PHYSICAL EXAMINATION: GENERAL: He is alert and oriented to all spheres, but sad faces today as mentioned before. Well hyd rated. Tolerating his diet. NECK: He has full range of motion of his neck. No cervical lymphadenopathy, no bruit, no palpable t hyroid. LUNGS: Have diminished breath sounds throughout, but no adventitious sounds. No need for increased use of inhalation. He has been placed on prophylactic Lovenox. HEART: Appears regular in rhythm. No S3, no appreciable murmur today. ABDOMEN: Soft, bowel sounds are present, distant but few. EXTREMITIES: Have full range of motion and relatively good strength, but he is not yet as ambulatory as we like him to be. He is using the walker, but comes and sits and lays down in bed. This mornin g, we admonished him to get up and sit out of bed more, as we can then plan. He is on medication for the constipation, but suggestion was made to use Amitiza and perhaps we will. He does have Movantik at home, but we will go that route if the Amitiza is not helpful. IMPRESSION: Intractable pain, better managed now. SECONDARY DIAGNOSIS: Limited ambulation. Needs to continue physical therapy to incorporate stair cl imbing as he will need to deal with we believe 14 steps to go home. Pending on the result of the bio psy, recommendations will come from Dr. Camacho and Dr. Aviles. MRCP is not yet done. Anthony Diaz MD cc: 73 TT: 06/14/2016 10:28:48 Confirmation # [id number] Dictation # [id number] delaney
--- NOTE | 2016-06-14 12:50 | PN ---
DATE: 06/14/2016 SUBJECTIVE: The patient was seen and examined in TCU. was there. No complaints of nausea or v omiting, but does complain of increased heartburn. Had small BM. No reports of bleeding. Still kota iting to go for MRI. VITAL SIGNS: Blood pressure 116/77, pulse 67, 18 respiration rate, afebrile. LABORATORY DATA: From 06/13/2016: WBC was 8.4, H and H are 12.3 and 38.4, platelets are 167. Sodiu m 136, K 4.9, BUN 18, creatinine is 0.8. Total bilirubin is 0.5. AST 71, ALT 96, alkaline phosphata se is 162. PHYSICAL EXAMINATION: HEENT: Sclerae are anicteric. NECK: Supple. CARDIAC: S1, S2. LUNGS: Decreased breath sounds but good aeration. No rales or wheeze. ABDOMEN: With bowel sounds. Soft, nontender. No rebound, no guarding. ASSESSMENT: This is a 75-year-old male status post kyphoplasty for pathological fractures of thoraci c vertebrae. The patient had bone biopsy. Biopsy is still pending. May have metastatic disease, sh owing liver lesions. Elevated CA 19-9 with normal CEA. AFP normal at 4.5. History of gastroesophag eal reflux disease, chronic constipation, history of prostate cancer. PLAN: The patient awaiting to go for MRI, MRCP. The patient is on bowel regimen of MiraLax p.r.n. a nd Senokot. The patient is also on oxycodone, Decadron, is on Lovenox. The patient complains of TAISHA D. Will put him back on some PPI for now; hopefully this will help. Awaiting for pathology to come b ack. The patient reports small BM. The patient was seen and case discussed with Dr. Aviles. Soraida CUMMINS cc: [id number] TT: 06/14/2016 12:49:06 Confirmation # [id number] Dictation # [id number] mn
--- NOTE | 2016-06-14 14:33 | PN ---
DATE: 06/14/2016 ADDENDUM This patient was seen and evaluated today. This is an addendum to the GI progress report dictated by Soraida Jackson NP. The patient is still awaiting for the MRCP and the pathology report. Discussed wi th the patient's , who was at bedside. Leyda Aviles MD cc: [id number] TT: 06/14/2016 14:33:23 Confirmation # [id number] Dictation # [id number] en
[2016-06-14] MEDS ORDERED: Pantoprazole 40 mg EC Tab PO ONE (19:21)
[2016-06-14] MEDS: SILODOSIN 8 MG PO SCH (21:34)
[2016-06-15] MEDS: Enoxaparin 40 mg Syringe SC SCH (05:25)
[2016-06-15] MEDS: Pantoprazole 40 mg EC Tab PO SCH ×2 (05:30→06:46)
[2016-06-15] MEDS: Arformoterol 15 mcg/2 ml Inh Sol IH SCH ×2 (07:30→20:15)
[2016-06-15] MEDS: Budesonide 0.5 mg/2 ml Inhal Susp UD IH SCH ×2 (07:30→20:15)
[2016-06-15 07:44] LABS: ADD MANUAL DIFF? NO
[2016-06-15] MEDS: Metoprolol Succinate 50 mg XL Tab PO SCH (07:57)
[2016-06-15 08:00] LABS: GRAN # 8.29 (1.4-6.5); GRAN % 83.4 % (50.0-68.0); HEMATOCRIT 36.2 % (42.0-52.0); LYMPH # 1.1 (1.2-3.4); LYMPH % 10.8 % (22.0-35.0); MEAN CORPUSCULAR HEMOGLOBIN 29.6 pg (25.0-35.0); MEAN CORPUSCULAR HGB CONC 32.6 g/dl (31.0-37.0); MONO # 0.6 (0.1-0.6); MONO % 5.8 % (1.0-6.0); PLATELET COUNT 141 10^3/uL (120.0-450.0); RED CELL DISTRIBUTION WIDTH 14.5 % (11.5-14.5); WHITE BLOOD COUNT 9.9 10^3/ul (4.5-11.0)
--- NOTE | 2016-06-15 08:10 | PN ---
DATE: 06/15/2016 A 75-year-old male with metastatic disease to the bone, primary yet to be determined, biopsy in progr ess. Admitted for protracted intractable pain, had been well until yesterday when he began with some degree of discomfort progressing to more unbearable nature, focusing on his reflux symptoms. The pa ankita was given double doses of Protonix yesterday with no relief, unbearable throughout the night. He has noted that since yesterday, he is also not quite able to sit up without pain. The pain is not being sustained as it was before and he points to the region where the kyphoplasty was done, that he cannot sit up to eat 1 more time, so today we will discuss change of the pain medication with Dr. Chris luque, but unfortunately the biopsy is not yet available for review nor for discussion with the patie nt. He is seen in his room alone. The has not arrived as we had to do early rounds this mornin g. He still has some complaints with the constipation, so secondarily also there will be a trial wit h Movantik. That prescription was given by Dr. Duncan on the outside and never filled. We do not hav e it here, but what we have done here is not enough for him, so we will try this Movantik with the wi fe's help and we will inform the staff to adjust accordingly. The patient has, as mentioned before, underlying metastatic disease to the bone, primary to be determined, questionable increased size in a liver presentation of a cyst or mass, biopsy of which can be attempted if present biopsy is not frui tful. Underlying history of COPD with bullous emphysema and type 2 diabetes mellitus, relatively wel l controlled. He is only on once a day metformin at moment, may need to be adjusted up. We are wait ing to see when all of the measurements are done for the initiation of radiotherapy that is the next step in plan. Hopefully, this will be palliative and helpful. The patient has also a prior history of chronic pain syndrome that originated with peripheral neuropathies, but at present, the neuropathi es are not an issue. He was measured yesterday for the target of the radiation, but has not been ini tiated yet pending the pathology report. PHYSICAL EXAMINATION: VITAL SIGNS: Today, temperature 98. It did not increase in severity overnight. Pulse is 58, regula r, blood pressure 112/68, respiratory rate of 18, and on room air, he is at 97% O2. GENERAL: He is alert and oriented to all spheres, again in moderate to severe pain this morning. We will try a dose of Mylanta as he said in the past this had been helpful and we will wait for Dr. Saad amaya to further the therapy for his unbearable reflux. The food consumption was 100% twice ye sterday, but 75% in the evening concurrently with the complaints of his pain resuming. He had no bow el movements. NECK: Supple, no cervical lymphadenopathy. HEENT: Oral mucosa is moist. LUNGS: Clear, but diminished breath sounds. ABDOMEN: Soft, bowel sounds are present, not augmented. EXTREMITIES: He is moving all the extremities, but the pain again seems to have returned. No new labs were done. Biopsy is yet to be reported. His MRCP also is pending. IMPRESSION: Resumption of his back pain at severity that is interfering with his eating and sitting up, but does not appear as severe as it was in the past. He does not give it a number today, but he does admit that the control is not normal. SECONDARY DIAGNOSES: 1. Severe reflux that urrutia him up in the evening, not responding to the double dose Protonix. 2. Type 2 diabetes mellitus. 3. Metastatic disease to the bone, primary yet to be determined. PLAN OF CARE: All depending on the biopsy results. We have increased his p.r.n. to include Mylanta and observe results. Secondary diagnosis of constipation to be addressed with out-formulary Movantik once it is brought in and perhaps a palliative care consult once the diagnosis is available as we wi ll need to present this when the is present and she is not there today, and last but not least, we offered him initiation of medicine for co-treatment with antidepressants. He will consider it and we will revisit it tomorrow. Anthony Diaz MD cc: 73 TT: 06/15/2016 08:08:58 Confirmation # [id number] Dictation # [id number] en
[2016-06-15 08:23] LABS: ALB/GLOB RATIO 1.1 (1.1-1.8); ALKALINE PHOSPHATASE 151 U/L (38-133); ALT/SGPT 94 U/L (7-56); AST/SGOT 60 U/L (15-59); BILIRUBIN,TOTAL 0.4 mg/dL (0.2-1.3); BLOOD UREA NITROGEN 20 mg/dL (7-21); CALCIUM 8.9 mg/dL (8.4-10.5); CARBON DIOXIDE 25 mmol/L (21-33); CHLORIDE 103 mmol/L (95-110); GFR AFRICAN-AMERICAN > 60; GLUCOSE,RANDOM 134 mg/dL (70-110); POTASSIUM 4.5 mmol/L (3.6-5.0); SODIUM 137 mmol/L (132-148); TOTAL PROTEIN 6.5 g/dL (5.8-8.3)
--- NOTE | 2016-06-15 08:25 | PN ---
DATE: 06/14/2016 The patient is examined in the [facility]. The patient is in room 302, bed 1. This is a 75-year-old Norwegian-speaking male who was admitted to the with worsening back pain fo r the past 3 months. Workup revealed the patient to have a compression fracture of T11 along with me tastatic disease to T3, left ribs, right ischium. The patient underwent emergency kyphoplasty, at th e same time obtaining core samples for tissue diagnosis, the last of which were obtained today, and t hey are dictated below. The patient in the interim has required decreased pain medications and feeli ng a whole lot better and has been getting both IV and p.o. narcotics along with IV Decadron which harley s been affecting his sugar, but overall the patient has been feeling better. The patient was transfe rred to [facility] to control his pain medicines and to start the radiation to the back as soon as the prim anna diagnosis was obtained. CA 19-9 is elevated. The biopsy would be most consistent with metastati c tumor of the lung with GI origin. SUBJECTIVE: The patient says that he is feeling better. The only main problem now has been constipa tion. Follow up, also being followed with GI to make sure what the pathology could be. The patient has multiple liver mets along with nodules in the lung consistent with lung mets , also. PHYSICAL EXAMINATION: GENERAL: The patient is awake, alert, and oriented. VITAL SIGNS: Stable as stated in the chart. HEENT: Head is normocephalic, atraumatic. Conjunctivae pale. Sclerae are anicteric. Pupils are eq ually reactive to light and accommodation. Examination of the oropharynx reveals no oropharyngeal le sions. NECK: Supple. There is no adenopathy. LUNGS: Clear to percussion and auscultation. BACK: Shows tenderness, posterior back without any new findings. EXTREMITIES: Reveal no cyanosis, clubbing or edema. LABORATORY DATA: Reviewed and unchanged. ASSESSMENT, NOTES AND PLAN: I reviewed the pathology with earlier this morning. 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 We are still waiting fo r other tests to come back to confirm what the pathology of origin could be, meaning is it coming fro m GI, lung. Appears to be unlikely from prostate diagnosis of prostate carcinoma. I spoke wit h Dr. Perdue who is going to initiate radiation as soon as it is feasible. Meanwhile, we will continue current medications. We will try to see if we can also give him a bone strengthener such as Aredia t o control the metastatic disease in the bone while he is in the TRCU and while he is getting all the radiation. Routine post exam instructions have been given to the patient. discussed with the patient's and explained to her in detail about what the diagnosis is and what the prognosis coul d be. as well. Soni Camacho MD cc: [id number] TT: 06/15/2016 00:00:43 Confirmation # [id number] Dictation # [id number] fl 06/14/2016 23:49:51
[2016-06-15] MEDS: Sucralfate 1 gm/10 ml Oral Susp UD PO SCH ×2 (09:37→17:17)
[2016-06-15] MEDS: Tiotropium 18 mcg Cap For Inhalation IH SCH (09:38)
[2016-06-15] MEDS: oxyCODONE 5 mg Immediate Release Tab PO PRN (09:45)
--- NOTE | 2016-06-15 12:40 | PN ---
DATE: 06/15/2016 Seen and examined at the bedside earlier today. The patient just returned from physical therapy. Th e was at the bedside. The patient received preliminary report that his bone biopsy was positive and it was being sent for a second opinion as per the . The patient went for radiation markings yesterday. The patient did complain of increased acid reflux last night. He was started on Protoni x and then was given Carafate this morning with relief. No nausea, vomiting, or complaints of abdomi nal pain. VITAL SIGNS: Temperature is 98.3, blood pressure 123/71, pulse rate 53, respirations 18, 97 on room air. LABORATORY DATA: WBC is 9.9, H and H is 11.8 and 36.2, platelets are 141. Sodium 137, K 4.5, BUN is 20, creatinine is 0.8. Total bilirubin is 0.4, AST 60, ALT 94, alkaline phosphatase is 151. This s hows some mild improvement. PHYSICAL EXAMINATION: HEENT: Sclerae are anicteric. NECK: Supple. CARDIAC: S1, S2. LUNGS: With decreased breath sounds, but good air entry, no rales or wheeze. ABDOMEN: With bowel sounds, soft, nondistended, nontender on palpation at this time. ASSESSMENT: A 75-year-old male with metastatic disease to the bone. Final biopsy is still pending. 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 He has been having severe reflux and history of constipation. PLAN: The patient is on Protonix 40 daily. Carafate has been added b.i.d. The patient states that it is working, so far. He is on Senokot and on MiraLax. He is on DVT prophylaxis of Lovenox. He is on Decadron and aspirin. He has also got Maalox p.r.n. He went for radiation today and his biopsy final report is pending as per oncology. Spoke to the nursing staff regarding the MRCP that has been pending. The patient was seen and case discussed with Dr Aviles. Soraida CUMMINS cc: [id number] TT: 06/15/2016 12:39:36 Confirmation # [id number] Dictation # [id number] tn
[2016-06-15] MEDS: Alum-Mag Hydrox-Simethicone Susp (30 mL) PO PRN (16:19)
[2016-06-15] MEDS: POLYETHYLENE GLYCOL 3350 17 GM/Dose PACKET PO PRN (16:24)
[2016-06-15] MEDS ORDERED: Pantoprazole 40 mg EC Tab PO ONE (19:21)
[2016-06-15] MEDS: SILODOSIN 8 MG PO SCH (21:27)
--- NOTE | 2016-06-16 01:01 | PN ---
DATE: 06/15/2016 LOCATION: The patient is in room 302, bed 1. SUBJECTIVE: The patient is examined in bed. The patient participated in the physical therapy. His main complaint has been he has reflux since last night and is also constipated. The patient was info rmed and the was informed that the biopsy report was positive for metastatic adenocarcinoma. __ ___ workup of what the cell of origin could be, whether it be the lung or GI. Does not appear to be prostate. Those tests will not be available until tomorrow morning. The patient has been started on Protonix, was given Carafate with relief of the heartburn. No complaints of nausea, vomiting or abd ominal pain. LABORATORY DATA: Reviewed. Hemoglobin is 11.8, hematocrit 36.2, white count is 9.1. Sodium is 137, K is 4.5, BUN is 20, creatinine 0.8, total bilirubin is 0.4, AST is 40, ALT is 94, alkaline phosphat ase is 151. This shows some improvement. PHYSICAL EXAMINATION: VITAL SIGNS: Stable. T-max is 98.4, blood pressure is 123/71, pulse 53, respirations 18, oxygen sat uration 97% on room air. GENERAL: The patient is awake, alert, and oriented, in no acute distress. HEENT: Head is normocephalic, atraumatic. Conjunctivae pale. Sclerae are anicteric. Pupils are eq ually reactive to light and accommodation. Examination of the oropharynx reveals no oropharyngeal le sions. NECK: Supple. There is no adenopathy. No jugular venous distention noted. LUNGS: Clear to percussion and auscultation with decreased breath sounds posteriorly. CARDIOVASCULAR: Reveals S1 and S2 to be normal. No gallop or murmur is heard. ABDOMEN: Soft, nontender. No rebound, rigidity or guarding. BACK: The patient had some mid lower back pain where he had the kyphoplasty, but that appears to be better by 50%. ASSESSMENT NOTES AND PLAN: This is a 75-year-old white male with metastatic carcinoma, most likely p robably of lung or gastrointestinal origin. Biopsy is positive for adenocarcinoma, poorly differenti ated. Immunohistochemistry and further studies have been sent to delineate the possible site o f origin the patient may have. The patient is constipated, will eventually need medication. In the meantime, he is on Protonix now daily. Carafate has been added in mid b.i.d. He is on Senokot and M iraLax and deep venous thrombosis prophylaxis with Lovenox, Decadron and aspirin, gets Maalox p.r.n. The patient is going to be starting radiation therapy after the biopsy report came back as positive. I spoke with the doctors involved in his care including , Dr. Aviles and Dr. Perdue as to th e plan of radiation and to watch the patient for the first few treatments in the hospital until thing s were stabilized. voiced the concern that, if things are improving, could we make plans fo r discharge, which we are going to do by the end of this week. Just wanted to make sure that he is r eacting positively to the radiation, not negatively from the side effects. Labs for a.m. have been r equested. Soni Camacho MD cc: [id number] TT: 06/16/2016 01:00:11 Confirmation # [id number] Dictation # [id number] delaney
--- NOTE | 2016-06-16 01:42 | PN ---
DATE: 06/15/2016 ADDENDUM: This is an addendum to the GI progress report dictated by Soraida Jackson. The patient discus sed with Dr. Camacho earlier. The patient did not have any bowel movements. PHYSICAL EXAMINATION: ABDOMEN: Soft. No tenderness. RECOMMENDATIONS: We will start the patient on Relistor. The patient also has significant heartburn. The patient has already been on Protonix, started on Carafate. PATHOLOGY: The preliminary path is suggestive of adenocarcinoma. Final path is still pending. Thank you very much for allowing us to participate in the care of the patient. Will continue to clos meagan follow up her care and suggest further management based on the clinical course. Leyda Aviles MD cc: [id number] TT: 06/16/2016 01:41:38 Confirmation # [id number] Dictation # [id number] mn
[2016-06-16] MEDS: Enoxaparin 40 mg Syringe SC SCH (05:47)
[2016-06-16] MEDS: Pantoprazole 40 mg EC Tab PO SCH (06:31)
[2016-06-16] MEDS: Budesonide 0.5 mg/2 ml Inhal Susp UD IH SCH ×2 (07:15→19:50)
[2016-06-16] MEDS: Arformoterol 15 mcg/2 ml Inh Sol IH SCH ×2 (07:15→19:50)
[2016-06-16] MEDS: Metoprolol Succinate 50 mg XL Tab PO SCH (08:07)
[2016-06-16] MEDS: Sucralfate 1 gm/10 ml Oral Susp UD PO SCH ×2 (09:29→17:04)
[2016-06-16] MEDS: Tiotropium 18 mcg Cap For Inhalation IH SCH (09:30)
[2016-06-16] MEDS: oxyCODONE 5 mg Immediate Release Tab PO PRN (09:30)
--- NOTE | 2016-06-16 11:02 | PN ---
DATE: 06/16/2016 The patient is seen at the bedside. He is with status post radiation therapy yesterday for the T11 fracture secondary to metastatic adenocarcinoma, origin yet to be determined. The official report is not yet on, but we have communicated with Dr. Camacho and the suspicion is possible pulmonary versus GI involvement, but the final pathology for biopsied procedure is still not in place. He has severe bullous emphysema that makes him a candidate for pulmonary complications and should not be lying flat as he has continuously done since the onset of the pain over 3 months ago before the diagnosis took place. He is at risk for aspiration if he continues this practice. He had no hospital bed at home and we are definitely recommending that he have one as the bed, will allow frequent repositioning, including inclination of the head to prevent aspiration. The patient was restless until this acute admission and now in the subacute side and seems to prefer to lie flat, although we are constantly repositioning with the help of the hospital bed and asking him to sit as often as he can, but has much pain when he sits on the chair that has again resumed. We hope that the radiotherapy will ameliorate this. In an ordinary bed, we will have not only lack of accommodation for the most comfortable position, but also run the risk of aspiration and at least needs to be elevated to 30 degrees or more, as he can tolerate it. We witnessed him attempting to eat flat on bed and have on several occasions corrected him that this cannot be done, but this is what this unfortunate soul had been doing until brought to the hospital. So there are 3 reasons why this note supercedes a prior recommendation for a hospital bed. Number 1, the repositioning that he assumes at times, if placed on a flat surface, will not be comforting for his pain, will not relieve his pain. The repositioning also will prevent aspiration if we are able to keep his head elevated and my biggest recommendation for this hospital bed is at least he will not be having aspirations as we will be able to maintain his head elevated over 30 degrees as he can then reposition to whatever is comfortable. The T11 fresh fracture that underwent kyphoplasty does tend to be at the region where most of this flexure would happen, so the bed is critically required, not just for pain management, but to prevent the dreaded complications given this gentleman's terrible bullous emphysema that has in the past required admission as the bullae exploded and he developed pleural effusion and that hospitalization was over 3 weeks in the past year. He is seldom comfortable in any sitting position for a prolonged period of time, so we cannot have him come back and forth from the bed as he seeks the bed as his therapy for his pain, not just his rest. Extensive review of his case in the past, as mentioned in our prior notes, underlying type 2 diabetes mellitus, underlying COPD, bullous emphysema underlying peripheral neuropathy that had been managed well until all of these occurred and again, we discussed with the patient today the expected yet to be confirmed diagnosis as the early returns from his biopsy have indicated adenocarcinoma, origin yet to be determined, The consideration for subsequent liver biopsy right now is not a primary goal. We spoke with the at length and the patient. We encouraged them to sit as often as he can to eat sitting up or maintain that head elevated, not just 30, but preferably 45 degrees, but the patient does have problems at 45 degrees with the pain. He does seem to think that he has a projection out in the back and we cannot see that in the back of his spine. We will follow accordingly as the spine looks normal in inspection. Discussion with Dr. Camacho yesterday recommends the planned radiotherapy, observation and then consider the rest once the confirmation of the biopsy comes in today or tomorrow. He is not in as good spirits as he was yesterday. Consideration for palliative care consult will be done tomorrow as he is still digesting the suspected diagnosis of metastatic cancer. PHYSICAL EXAMINATION: GENERAL: He is alert and oriented to all spheres, sad facies as he is just dealing with the diagnosis. VITAL SIGNS: Temperature today is 98.5 with no peaks yesterday, pulse rate is 68, blood pressure 108/73, a respiratory rate of 18 with an 97% O2 sat. He had tolerated his lunch yesterday and less his dinner. This morning he did consume his breakfast. Fingerstick glucose is fluctuating from 150-250 and we will continue to address it. He is currently attending physical therapy with some relief as noted. LABORATORY DATA: Labs for today were not ordered as he has been quite stable with an H and H of 11.8 and 36.2. He is conversant, but not as jovial as he had been in the past. The severity of the pain excruciating as he describes when he has his stabbing type of pain and we had suggested perhaps some Lidoderm for the paraesthesias that he is experiencing at the surgical site, but the asked us to refrain as she feels the wound is still open. This was done 6 days ago and we do not see any drainage, but we will defer to her request. NECK: Appears, supple. He does usually have some limitation to flexion and extension from his arthritis. HEENT: Pupils are equally round and reactive to light and accommodation. There are no noticeable changes in his sclerae, but again facies are sad. There is no bruit appreciated in the neck. No cervical nodes, no axillary nodes. LUNGS: Have diminished breath sounds and we encouraged him to resume incentive spirometry again. HEART: Distant, but regular in rhythm. No S3 appreciated. ABDOMEN: Soft. Bowel sounds are present and he still has not had a bowel movement. Unfortunately, he was given 2 Relistor with no results. The is requesting perhaps just a simple milk of mag or even citrate and we remind her that it is best when 1 specialist handles an area and perhaps this can be taken up with Dr. Aviles when he comes in who expected the Relistor to be effective. Pain management will be under Dr. Camacho as we have requested since he will be following the extensive disease this unfortunate patient has. EXTREMITIES: He is moving all extremities. He walked from the door to his bed as he was brought back from radiation therapy as we were waiting for him. We have not yet seen the MRCP report, seems radiology is a little behind again. IMPRESSION: 1. Intractable recurrent pain from T11 pathological fracture with bony metastases from unknown primary. 2. Bone biopsy reveals adenocarcinoma, etiology being determined. 3. Bullous emphysema, chronic obstructive pulmonary disease. 4. Type 2 diabetes mellitus. 5. Parathesias of the surgical site, post kyphoplasty. 6. Depression. PLAN OF CARE: Continue with the help of the consultants, await for home hospital bed to be arranged. We are considering a discharge for this weekend, possibly on Tuesday or Tuesday depending on how all this can be arranged. I think has a preference for Tuesday and we will continue to visit him daily. In order to proceed with discharge planning we have ordered for a hospital bed to be delivered before discharge. Patient's head of bed needs to be elevated minimum of 30 degrees as tolerated.. He has underlying COPD and we fear aspiration from otherwise Anthony Diaz MD cc: [id number] TT: 06/16/2016 11:02:02 Confirmation # [id number] Dictation # [id number] tn KARISSA
[2016-06-16] MEDS: POLYETHYLENE GLYCOL 3350 17 GM/Dose PACKET PO PRN (13:31)
[2016-06-16] MEDS ORDERED: Peg-Electrolyte Oral Soln 4L (Golytely) PO ONE (14:46)
[2016-06-16] MEDS: SILODOSIN 8 MG PO SCH (21:45)
--- NOTE | 2016-06-16 22:06 | PN ---
DATE: 06/16/2016 This is the patient's hospital visit on the TCU floor. For Dr. Camacho. SUBJECTIVE: The patient is a 75-year-old male seen lying awake in bed, reporting that he has not had a bowel movement in over 10 days, with recent testing shown that the patient does have a mass of the liver, obstructing bile ducts, for which Dr. Aviles is following him. He also was taking Movantik for his bowel issues with constipation, which is a home medication which should be reordered for him . He is now taking Relistor. One dose was given yesterday with no effect. He is now taking GoLYTEL Y, as per Dr. Aviles, to see if this might help him with his severe constipation. Otherwise, the p atient is known to be status post a compression fracture at T11, with metastatic disease to T3, who h ad an emergency kyphoplasty in the recent past. OBJECTIVE: PHYSICAL EXAMINATION: VITAL SIGNS: Temperature 98.1, pulse 66, respirations 18, blood pressure 113/73, pulse ox 97%. HENT: Unremarkable. NECK: Supple. HEART: Regular rate. LUNGS: Clear. ABDOMEN: Soft with minimal tenderness, generalized, with gentle palpation. EXTREMITIES: No edema. SKIN: Warm, dry, and clear. The patient's labs were done yesterday, and will be repeated tomorrow. He did have an AST of 60, wit h an ALT of 94, alk phos 151. The assessment of this patient is that of severe constipation, deconditioning, intractable pain of héctor ny metastatic from unknown primary, history of adenocarcinoma with a liver mass, diabetes mellitus, c hronic obstructive pulmonary disease, emphysema, depression. The plan for this patient is to continue present medical regimen, with the patient to be allowed to t cherelle his Movantik from home, as per Dr. Aviles. However, it should not be started until at least 24 hours, given 2 days after the dose of Relistor. We with ill monitor clinically and with labs, with further workup for his primary adenocarcinoma once he is stable. Will check his labs, monitor clini roberta. Bandar Bond MD cc: [id number] TT: 06/16/2016 22:06:01 Confirmation # [id number] Dictation # [id number] jn
--- NOTE | 2016-06-17 02:54 | PN ---
DATE: 06/16/2016 SUBJECTIVE: This patient was seen and evaluated earlier. The patient did not have any bowel movemen ts even after the Relistor and MiraLax. The patient now was started given GoLYTELY; he has been start ed drinking it. PHYSICAL EXAMINATION: VITAL SIGNS: Temperature is 98.1, pulse of 66, blood pressure 130/73. HEENT: Atraumatic, anicteric. NECK: Supple. HEART: S1, S2 heard. LUNGS: Bilateral air entry present. ABDOMEN: Soft. There is no mass palpable. No tenderness. LABORATORY DATA: No labs were done today, but the CT scan done was reviewed. The patient has a hist ory of Porter's endoscopy, did not reveal any metaplasia at that time in the stomach, but did have g astritis of the intestines ____ metaplasia. The MRI was reviewed. The patient has a large mass in t he liver partially obstructing the . IMPRESSION AND PLAN: The patient has been drinking GoLYTELY. If he has no bowel movements, the othe r option to consider is repeating the dose of Relistor. In that case, we may have to kind of hold __ ___. We cannot give both medications. Thank you for allowing me to participate in the care of your patient. Leyda Aviles MD cc: [id number] TT: 06/17/2016 02:53:48 Confirmation # [id number] Dictation # [id number] delaney
[2016-06-17] MEDS: Enoxaparin 40 mg Syringe SC SCH (05:31)
[2016-06-17] MEDS: Pantoprazole 40 mg EC Tab PO SCH (06:30)
[2016-06-17] MEDS: Budesonide 0.5 mg/2 ml Inhal Susp UD IH SCH ×2 (07:10→20:08)
[2016-06-17] MEDS: Arformoterol 15 mcg/2 ml Inh Sol IH SCH ×2 (07:10→20:08)
[2016-06-17 07:29] LABS: ADD MANUAL DIFF? NO
[2016-06-17 07:39] LABS: GRAN # 8.43 (1.4-6.5); GRAN % 88.9 % (50.0-68.0); HEMATOCRIT 37.1 % (42.0-52.0); LYMPH # 0.6 (1.2-3.4); LYMPH % 6.4 % (22.0-35.0); MEAN CELL VOLUME 90.3 fL (80.0-105.0); MEAN CORPUSCULAR HEMOGLOBIN 29.2 pg (25.0-35.0); MEAN CORPUSCULAR HGB CONC 32.3 g/dl (31.0-37.0); MEAN PLATELET VOLUME 13.8 fl (7.0-11.0); MONO # 0.5 (0.1-0.6); MONO % 4.7 % (1.0-6.0); PLATELET COUNT 138 10^3/uL (120.0-450.0); RED CELL DISTRIBUTION WIDTH 14.8 % (11.5-14.5); WHITE BLOOD COUNT 9.5 10^3/ul (4.5-11.0)
[2016-06-17 07:49] LABS: ALB/GLOB RATIO 0.9 (1.1-1.8); ALKALINE PHOSPHATASE 163 U/L (38-133); ALT/SGPT 111 U/L (7-56); AST/SGOT 59 U/L (15-59); BILIRUBIN,TOTAL 0.7 mg/dL (0.2-1.3); BLOOD UREA NITROGEN 21 mg/dL (7-21); CALCIUM 8.2 mg/dL (8.4-10.5); CARBON DIOXIDE 22 mmol/L (21-33); CHLORIDE 99 mmol/L (98-107); GFR AFRICAN-AMERICAN > 60; GLUCOSE,RANDOM 152 mg/dL (70-110); POTASSIUM 4.1 mmol/L (3.6-5.0); SODIUM 136 mmol/L (132-148); TOTAL PROTEIN 7.1 g/dL (5.8-8.3)
[2016-06-17] MEDS: Metoprolol Succinate 50 mg XL Tab PO SCH (07:53)
[2016-06-17] MEDS: Sucralfate 1 gm/10 ml Oral Susp UD PO SCH ×2 (09:24→17:08)
[2016-06-17] MEDS: oxyCODONE 5 mg Immediate Release Tab PO PRN (09:26)
[2016-06-17] MEDS: Tiotropium 18 mcg Cap For Inhalation IH SCH (09:27)
--- NOTE | 2016-06-17 10:50 | PN ---
DATE: 06/17/2016 ADDENDUM CERTIFICATE OF NEED FOR A HOME HOSPITAL BED: The patient in transit for home while he is still recei ving his radiotherapy for metastatic bone disease affecting the back. The patient has comorbid bullo us emphysema, severe COPD that requires the head of the bed to be elevated more than 30 degrees consi stently throughout the day. Aspiration is a real risk in this patient. He also has severe reflux. He must keep the bed elevated over 30 degrees in order to treat and prevent aspiration. Anthony Diaz MD cc: [id number] TT: 06/17/2016 09:51:41 Confirmation # [id number] Dictation # [id number] tn 06/17/2016 09:50:08
--- NOTE | 2016-06-17 11:39 | CP.PCM.CON ---
History of Present Illness - History of Present Illness History of Present Illness: Palliative consult requested by Dr Kaitlyn Diaz Reason: Advance care planning 75 year old male admitted to TCU for deconditioing. Recently transferred from acute care setting where he was treated for intractable back pain, compression fracture T3, s/p kyphoplasty. Work up showed metastatic disease to T3, left ribs and right ischium, multiple liver nodules. Biopsy during kyphoplasty, pathology report metastatic adenocarcinoma, primary unknown at this time. patient currently undergoing palliative radiation to the spine. PMHx: prostate cancer,gastritis, Porter's esophagitis, COPD, emphysema,DM. Social History:Former smoker,no alcohol or drug misuse. , lives with spouse. Worked in a chemical factory for many years. Family History: Non contributory. Advance Care Planning: The patient does not have an Advanced Directive. Review of Systems:The patient complains if back pain,constipation and weight loss, indigestion. Past Patient History - Infectious Disease Hx of Infectious Diseases: None - Tetanus Immunizations Tetanus Immunization: Unknown - Past Social History Smoking Status: Light Smoker < 10 Cigarettes Daily - CARDIAC Hx Cardiac Disorders: Yes Hx Hypertension: Yes - PULMONARY Hx Chronic Obstructive Pulmonary Disease (COPD): Yes - NEUROLOGICAL Other/Comment: Neuropathy - HEENT Hx HEENT Problems: Yes (wear glasses) Other/Comment: Porter's esophagus - RENAL Hx Chronic Kidney Disease: Yes (right kidney cyst removal) - ENDOCRINE/METABOLIC Hx Diabetes Mellitus Type 2: Yes - HEMATOLOGICAL/ONCOLOGICAL Hx Blood Transfusions: No - INTEGUMENTARY Hx Dermatological Problems: No - MUSCULOSKELETAL/RHEUMATOLOGICAL Hx Falls: No - GASTROINTESTINAL Hx Gastrointestinal Disorders: Yes (CONSTIPATION,GASTROENTERITIS,APPENDECTOMY, CHOLECYSTECOMY) - GENITOURINARY/GYNECOLOGICAL Hx Genitourinary Disorders: No (RENAL CYSTS) Hx Reproductive Disorders: Yes (PROSTATE CA) - PSYCHIATRIC Hx Psychophysiologic Disorder: No Hx Substance Use: No - SURGICAL HISTORY Hx Surgeries: Yes - ANESTHESIA Hx Anesthesia Reactions: No Hx Malignant Hyperthermia: No Meds Allergies/Adverse Reactions: Allergies Allergy/AdvReac Type Severity Reaction Status Date / Time No Known Allergies Allergy Verified 06/08/16 14:44 - Medications Medications: Current Medications Acetaminophen (Tylenol 325mg Tab) 650 mg PO Q4 PRN; Protocol PRN Reason: Pain, Mild (1-3) Al Hydrox/Mg Hydrox/Simethicone (Maalox Plus 30 Ml) 30 ml PO Q6H PRN PRN Reason: Indigestion / Heartburn Last Admin: 06/15/16 16:19 Dose: 30 ml Albuterol Sulfate (Albuterol 0.083% Inhal Maureen (2.5 Mg/3 Ml) Ud) 2.5 mg IH TID PRN; Protocol PRN Reason: SOB Arformoterol Tartrate (Brovana) 15 mcg IH [id number] [facility] Last Admin: 06/17/16 07:10 Dose: 15 mcg Aspirin (Ecotrin) 81 mg PO 0800 [facility] PRN Reason: Protocol Last Admin: 06/17/16 07:52 Dose: 81 mg Budesonide (Pulmicort Respules) 0.5 mg IH [id number] [facility] PRN Reason: Protocol Last Admin: 06/17/16 07:10 Dose: 0.5 mg Dexamethasone (Decadron) 4 mg PO BID [facility] PRN Reason: Protocol Last Admin: 06/17/16 09:25 Dose: 4 mg Duloxetine HCl (Cymbalta) 60 mg PO DAILY [facility] PRN Reason: Protocol Last Admin: 06/17/16 09:25 Dose: 60 mg Enoxaparin Sodium (Lovenox) 40 mg SC 0600 [facility] PRN Reason: Protocol Last Admin: 06/17/16 05:31 Dose: 40 mg Metoprolol Succinate (Toprol Xl) 50 mg PO 0800 [facility] PRN Reason: Protocol Last Admin: 06/17/16 07:53 Dose: 50 mg Non-Formulary Medication (Silodosin [Rapaflo]) 8 mg PO 2200 [facility] Last Admin: 06/16/16 21:45 Dose: 8 mg Ondansetron HCl (Zofran Inj) 4 mg IVP Q6H PRN; Protocol PRN Reason: Nausea/Vomiting Oxycodone HCl (Oxycodone Immediate Release Tab) 5 mg PO Q6H PRN; Protocol PRN Reason: Pain, severe (8-10) Last Admin: 06/17/16 09:26 Dose: 5 mg Pantoprazole Sodium (Protonix Ec Tab) 40 mg PO ACB [facility] Last Admin: 06/17/16 06:30 Dose: 40 mg Polyethylene Glycol (Miralax) 17 gm PO DAILY PRN PRN Reason: Constipation Last Admin: 06/16/16 13:31 Dose: 17 gm Sennosides (Senokot Tab) 17.2 mg PO HS [facility] Last Admin: 06/16/16 21:45 Dose: 17.2 mg Sucralfate (Carafate Oral Susp) 1 gm PO BID [facility] Last Admin: 06/17/16 09:24 Dose: 1 gm Tiotropium [place] (Spiriva) 18 mcg IH DAILY [facility] PRN Reason: Protocol Last Admin: 06/17/16 09:27 Dose: 18 mcg Topiramate (Topamax) 25 mg PO HS [facility] PRN Reason: Protocol Last Admin: 06/16/16 21:45 Dose: 25 mg Physical Exam - Constitutional Appears: No Acute Distress, Chronically Ill - Head Exam Head Exam: NORMAL INSPECTION - Eye Exam Eye Exam: Normal appearance, PERRL - ENT Exam ENT Exam: Mucous Membranes Moist, Normal Oropharynx - Neck Exam Neck exam: Positive for: Normal Inspection - Respiratory Exam Respiratory Exam: Decreased Breath Sounds, NORMAL BREATHING PATTERN - Cardiovascular Exam Cardiovascular Exam: REGULAR RHYTHM, +S1, +S2 - GI/Abdominal Exam GI & Abdominal Exam: Diminished Bowel Sounds, Soft - Extremities Exam Extremities exam: Positive for: normal inspection, pedal pulses present - Back Exam Back exam: vertebral tenderness - Neurological Exam Neurological exam: Alert, Oriented x3 - Skin Skin Exam: Dry - Additional Findings Additional findings: Palliative performance scale rating Results - Vital Signs Recent Vital Signs: Last Vital Signs Temp 97.4 F L 06/17/16 10:54 Pulse 65 06/17/16 10:54 Resp 18 06/17/16 10:54 BP 127/78 06/17/16 10:54 Pulse Ox 98 06/17/16 05:36 - Labs Result Diagrams: 06/17/16 07:10 06/17/16 07:10 Labs: Laboratory Results - last 24 hr 06/16/16 06/16/16 06/16/16 12:02 16:44 17:06 WBC RBC Hgb Hct MCV MCH MCHC RDW Plt Count MPV Gran % Lymph % (Auto) Wilkin % (Auto) Eos % (Auto) Baso % (Auto) Gran # Lymph # Wilkin # Eos # Baso # Sodium Potassium Chloride Carbon Dioxide Anion Gap BUN Creatinine Est GFR ( Amer) Est GFR (Non-Af Amer) POC Glucose (mg/dL) 216 H 351 H 248 H Random Glucose Calcium Total Bilirubin AST ALT Alkaline Phosphatase Total Protein Albumin Globulin Albumin/Globulin Ratio 04/12/17 04/13/17 21:40 07:10 WBC 9.5 RBC 4.11 Hgb 12.0 L Hct 37.1 L MCV 90.3 MCH 29.2 MCHC 32.3 RDW 14.8 H Plt Count 138 MPV 13.8 H Gran % 88.9 H Lymph % (Auto) 6.4 L Wilkin % (Auto) 4.7 Eos % (Auto) 0.0 L Baso % (Auto) 0.0 Gran # 8.43 H Lymph # 0.6 L Wilkin # 0.5 Eos # 0.0 Baso # 0.00 Sodium 136 Potassium 4.1 Chloride 99 Carbon Dioxide 22 Anion Gap 19 BUN 21 Creatinine 0.8 Est GFR ( Amer) > 60 Est GFR (Non-Af Amer) > 60 POC Glucose (mg/dL) 209 H Random Glucose 152 H Calcium 8.2 L Total Bilirubin 0.7 AST 59 ALT 111 H Alkaline Phosphatase 163 H Total Protein 7.1 Albumin 3.5 Globulin 3.7 Albumin/Globulin Ratio 0.9 L Assessment & Plan - Assessment and Plan (Free Text) Assessment: 75 year old male admitted with intractable back pain, weight loss,constipation. Found to have metastatic disease of liver, spine, ribs and right ischium. Pathology adenocarcinoma,awaiting further test results in order to identify source of primary disease. The patient's is at bedside. The patient prefers to speak in [place]. RNNhan was interpreting our conversation. The patient is alert, oriented, in no distress. The patient understands that he has cancer in his spine, ribs and liver.He understands that once primary source of disease is identified, further treatment options will be offered. He is currently undergoing palliative radiation to the spine. Patient states there is no family history of cancer. He admits that he worked in a chemical factory and that exposure to chemicals caused him to develop peripheral neuropathy. We spoke at length about goals of care and advance care planning. Patient states that he does not want to be intubated or have CPR if his condition worsens. His agrees with this decision. POLST explained, questions answered. A POLST form was given to patient and to review. They plan on initiating with . Patient is also concerned about quality of life, specifically pain management. He states his pain is better control since his hospitalization. I explained that opioid medications can cause constipation. Patient had a large BM last night. We discussed the importance of maintaining a bowel regimen in order to prevent constipation. Time spent in discussion with patient/ regarding goals of care, advance care planning, symptom management, 40 minutes Plan: Miralax 17 gms daily. Advance care planning. LESLIE Thank you for allowing me to participate in this patients care.
--- NOTE | 2016-06-17 16:47 | PN ---
DATE: 06/17/2016 HISTORY OF PRESENT ILLNESS: Seen and examined at the bedside this afternoon. The patient tolerated h custodial a gallon of GoLYTELY and reported to have a large bowel movement with relief. No reports of any bleeding. The patient is currently complaining of acid reflux. He is eating a piece of bread to hel p. No nausea, vomiting. VITAL SIGNS: Temperature is 97.4, blood pressure 127/78, pulse 65, respirations 18. LABORATORY DATA: Today, WBC is 9.5, H is H 12.0 and 37.1, platelets of 138. Sodium 136, K is 4.1, B UN 21, creatinine 0.8. Total bilirubin is 0.7, AST 59, ALT 111. Alkaline phosphatase is 163. PHYSICAL EXAMINATION: HEENT: Sclerae anicteric. NECK: Supple. CARDIAC: S1, S2. LUNGS: Decreased breath sounds but clear. ABDOMEN: With bowel sounds, soft. Mild epigastric discomfort. No rebound, guarding, or organomegal y. DIAGNOSTIC DATA: The patient went for MRCP yesterday and reporting a large mass in the liver with par tial obstruction of the biliary ducts, especially in the posterior right lobe with smaller, more ivan pherally located lesions consistent with metastatic disease, common bile duct measures [address] ASSESSMENT: This is a 75-year-old male status post kyphoplasty for pathological fractures of the thor acic vertebrae. The patient with metastatic disease, status post MRCP, reporting a large liver lesio n. He is status post constipation, likely narcotic; gastroesophageal reflux disease; history of pro state cancer. PLAN: The patient is currently undergoing radiation treatment. He is being followed by oncology. H is bowel regimen is now MiraLax daily. He is getting Senokot. We will also continue his Protonix in the a.m. He is also getting Carafate and Maalox p.r.n. He is on DVT prophylaxis, Lovenox. Also on aspirin. The patient was seen and case discussed with Dr. Aviles. Soraida CUMMINS cc: [id number] TT: 06/17/2016 16:46:43 Confirmation # [id number] Dictation # [id number] ln
[2016-06-17] MEDS: Alum-Mag Hydrox-Simethicone Susp (30 mL) PO PRN (17:11)
[2016-06-17] MEDS: SILODOSIN 8 MG PO SCH (21:14)
--- NOTE | 2016-06-17 21:36 | PN ---
DATE: 06/17/[address] Camacho. SUBJECTIVE: The patient is a 75-year-old male seen lying awake in bed, reporting significant GERD sy mptoms for which he is now being treated by Dr. Aviles with different preparations. He did have a bowel movement yesterday. He is known to suffer from a mass in the liver and severe constipation wit h bony metastatic changes from an unknown primary with a history of adenocarcinoma. PHYSICAL EXAMINATION: VITAL SIGNS: Temperature 97.4, pulse 65, respirations 18, blood pressure 127/78, pulse ox 98%. HEENT: Unremarkable. NECK: Supple. HEART: Regular rate. LUNGS: Clear. ABDOMEN: Soft with minimized tenderness to the midepigastrium with scar to the right upper quadrant. EXTREMITIES: No edema. SKIN: Warm, dry and clear. LABORATORY DATA: The patient's labs were done. White blood cell count of 9.5, hemoglobin 12.0, violeta tocrit 37.1 and platelet count 138,000, with a chem panel showing an ALT of 111, nonfasting glucose 257. Calcium of 8.2. ASSESSMENT: History of adenocarcinoma with liver mass, diabetes, constipation, gastroesophageal ref lux disease; intractable pain of bony metastatic disease, unknown primary; chronic obstructive pulmon anna disease, depression. PLAN: Continue present medical regimen with Carafate along with other remedies including Maalox and Protonix given. We will monitor clinically and with labs. Bandar Bond MD cc: [phone] TT: 06/17/2016 21:35:25 Confirmation # [id number] Dictation # [id number] mn
[2016-06-17] MEDS ORDERED: Nystatin 100,000 Units/ml Oral Susp 5 ml UD PO STA (22:26)
--- NOTE | 2016-06-18 03:45 | PN ---
DATE: 06/17/2016 ADDENDUM This is an addendum to the GI progress report dictated by Soraida Jackson APN. The patient is still complaining of epigastric discomfort. The patient is still complaining of burni ng sensation in the esophageal area. He is on high-dose PPI, Carafate, and also added on H2 blockers . PHYSICAL EXAMINATION: Oral cavity has a mild thrush present. The most likely cause in his case to be considered is e sophagitis. The patient did not have the symptoms and this started probably after starting the stero id. RECOMMENDATIONS: 1. I would recommend at this point to discontinue the Carafate. 2. We will start the patient on nystatin swish and swallow 1 g q.i.d. Kovil V Stefan ESTRADA cc: [id number] TT: 06/18/2016 03:44:59 Confirmation # [id number] Dictation # [id number] tn
[2016-06-18] MEDS: Enoxaparin 40 mg Syringe SC SCH (05:30)
[2016-06-18] MEDS: Pantoprazole 40 mg EC Tab PO SCH ×2 (06:24→17:12)
[2016-06-18] MEDS: Budesonide 0.5 mg/2 ml Inhal Susp UD IH SCH ×2 (07:11→19:20)
[2016-06-18] MEDS: Arformoterol 15 mcg/2 ml Inh Sol IH SCH ×2 (07:11→19:19)
[2016-06-18] MEDS: Metoprolol Succinate 50 mg XL Tab PO SCH (07:45)
--- NOTE | 2016-06-18 09:37 | PN ---
DATE: 06/17/2016 We neglected to finish the dictation yesterday. We needed to have permission. The patient required a stat dictation before our completed time yesterday in order to approve the home hospital bed and we dictated a very brief cursory note to comply with the requirements. The patient is seen in the morning of 06/17 complaining of poor overnight rest as his reflux was antonia rning. At the time of visit, he was just coming back from the physical therapy and we had a long dis cussion with him and the regarding plan of care, future and our thoughts on the present plan wit h radiotherapy and possibly subsequent chemotherapy. We advised the patient, although it is not yet finalized, the biopsy report is consistent with an adenocarcinoma that Dr. Camacho and I had a discus jackie and he exposed the possible plans of care with medications, both of which will probably require prior authorization and may not be instituted during this admission, but definitely would be institut ed once the final biopsy is available so that it can be forwarded to his insurance. assures us that there is great coverage. We had explained to her that it is not a coverage issue. Most likely, it is just going to be having all the papers necessary before medication is released and Dr. Camacho spent some time on the phone with us the day before explaining the thoughts of this palliative care as the bone mets are painful, but should respond at least with the relief of pain to the medication t hat is being considered, none of which we have experience with. All our expert handled medications t hat should be under the guidance of the oncologist and we have full confidence in Dr. Camacho's under standing of the treatment and the needed care. The patient has some relief post the radiation, at le ast it seems to be getting a little better, and he still has breakthrough times, but the reflux has b ecome a terrible issue. We have added Carafate to his schedule. We have added H2 antagonist in the way of Pepcid that is carried here in the hospital and still he had not that long lasting relief, so he was a little desperate. We also took advantage to ask the palliative care nurse to have a convers ation as they are both ready, and . The patient has some questions. obviously woul d prefer that the patient make his own decision given the variable culture within their family and hi s family is all anxious to see him, but patient is definitely not ready to travel at this moment. Th e pain may be too unbearable yet from the bone metastasis and perhaps he can begin making his decisio ns as to the extent and timing of therapy should anything fail and this way, both he and can be on the same page and this can be presented to his extended family. There is a daughter in the region , but she suffers from conditions that do not allow her to travel at the moment. She will be coming to see him most likely after he is discharged. A large part of my time is spent on filling out the r equirement for the home hospital bed. We have a specific situation. The suffers from fibromyal carly, so she would not be able to crank the other bed. The patient is a known COPDer with bullous emp hysema and we fear aspiration could complicate and cause very detrimental results to this patient if he does not have a hospital bed that he would be able to keep consistently at 30 degrees plus of an e levation that is only available through the hospital bed definitely. He cannot put enough pillows in his back, especially when his back is the area where the bony metastasis is and this is just not fea sible to having any other type of bed except a hospital bed out of consideration for his metastatic b one disease placed in the spine, but also the underlying emphysema. In the past, he has decompensate d, but at present, he does not have congestive heart failure. He is presently on steroids also to he lp along with the pain and we will begin dosing down the steroids at the suggestion of edwina Caballero ho will manage him once he goes home. PHYSICAL EXAMINATION: On 06/17/2016: VITAL SIGNS: No temperature spike. Temperature is 97.4, blood pressure 127/78, a pulse rate of 65 a nd regular, and respiratory rate of 18 with an O2 sat of 98%. GENERAL: No respiratory distress. He does seem to be consuming more of his meal when he has no pain . We see that the pattern is in the evenings to have only a 50% intake and would not think that weig ht loss would be appropriate. NECK: More or less supple. 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 HEENT: Oral mucosa was moist. There were no lesions observed during rounds. Later on in the day, i t appears Dr. Aviles felt some lesions could be compatible with thrush and initiated Nystatin swish and swallow to some relief. LUNGS: Clear to auscultation and percussion. HEART: Distant, but regular in rhythm. ABDOMEN: Soft. He was happy as he has had a large bowel movement after he was given GoLYTELY the ni ght before. EXTREMITIES: Have full range of motion, no edema, no other major involvement. IMPRESSION: 1. Metastatic bone disease to T11 with subsequent fracture, metastatic bone disease to T3 and metast atic disease to his left anterior rib. 2. Suspected adenocarcinoma as a primary site yet to be determined. 3. Comorbid diabetes mellitus, uncontrolled at present due to the steroid use. 4. Underlying chronic obstructive pulmonary disease, bullous emphysema, well controlled as he is in a hospital bed where the head of bed is elevated. PLAN OF CARE: Meeting with the palliative care nurse today and await for Dr. Aviles to guide the m anagement of his recurrent and unsustainable reflux. Anthony Diaz MD cc: [id number] TT: 06/18/2016 09:37:04 Confirmation # [id number] Dictation # [id number] en
[2016-06-18] MEDS: Nystatin 100,000 Units/ml Oral Susp 5 ml UD PO SCH ×4 (09:59→22:39)
[2016-06-18] MEDS: POLYETHYLENE GLYCOL 3350 17 GM/Dose PACKET PO SCH (09:59)
[2016-06-18] MEDS: Tiotropium 18 mcg Cap For Inhalation IH SCH (10:00)
--- NOTE | 2016-06-18 10:02 | PN ---
DATE: 06/18/2016 The patient is alert and oriented and eating almost 100% of his breakfast this morning as we walk in. Rushing a little bit through because of the expected due time to have his radiotherapy. He met wit h the compassionate palliative nurse yesterday and are looking over the POLST form and they will cons ider it and fill it at home, and I have instructed them to bring it to the office on his followup vis it and we can finalize it so that they can post it at home. He is uncomfortable because of a difficu lt evening where the GERD was keeping him awake despite Carafate slurry, despite Pepcid added to his regimen, and Dr. Aviles increased the Protonix to twice a day, discontinued the Carafate and added a nystatin solution for the oral thrush. He is doing better this morning and thinks perhaps the ther apy for the thrush was helpful. This morning, we see his back under a different light and note that there is a carbuncle in the area where he had been complaining 2 days ago of his bone sticking out, a nd obviously there was nothing evident there at the side. Now we do see that there is a darkened car buncle in the midthoracic spine, probably the origin of his discomfort when he was lying down and thi s, I am convinced, was the source of his discomfort. The patient and had extensive discussion w ashley Archer. We appreciate her kind oversight. The patient discussed his sensations with Dr. Aviles who made some changes for him yesterday. Dr. Camacho was not in to see him but his substitu te was, and all of the consults were appreciated. Unfortunately, the patient's glucose has not been like we would like to consider, and we have been holding back the use of metformin due to all the nee ded CAT scans, but perhaps we can resume the twice a day dose on his discharge as the steroids were b rought down yesterday. The most annoying symptom for him at present is his severe reflux that is jus t untenable, and we will discuss with Dr. Aviles other options. We are not looking forward to inmichele Guallpa as there could be further interaction and not sure that patient is quite ready to begin antidepressant therapy with Zoloft, but we will continue to strive. PHYSICAL EXAMINATION: VITAL SIGNS: Today, blood pressure 126/80, O2 sat 96%, respiratory rate 18, pulse 64 and regular, te mperature 97.4 with no peaks yesterday. Of note, his regular OxyContin had been discontinued as it d ropped off the schedule and perhaps this will help with pain management once we reinstitute it. We s poke with the pharmacy to do that ROSAURA. BACK: The skin region in the back shows a carbuncle hardened region. Being that he is on steroids a nd all the other issues, we will try dealing with it via the topical way with Bactroban and hopefully draw this out. May need to have a short course of penicillin or a like medication. We will see if it is necessary tomorrow before his planned discharge. has been notified that sometime today th joseph may be receiving the hospital bed, as it is very johnson to have that home before the patient arrives home. He is completing today's radiation therapy, but that definitely will not conclude the therapy. He is to continue the number of days as discussed with Dr. Camacho and perhaps his new medicine blessing l be infused as an outpatient within the next week, which one of the two to be determined upon the fi nal report biopsy. HEENT: Oral mucosa has no white patches that we can see today, but we do believe that perhaps with a ll the steroids that he has had this is a possibility and perhaps this was worsening his reflux, so w e are hopeful the nystatin will be helpful. It is important that the patient continues with his nutr ition. His pain was to such a degree yesterday he felt more comfortable sitting out of bed and he wo und up sitting. Again, much needed, hospital bed will be essential to have home. LUNGS: Clear bilateral. Diminished breath sounds but no adventitious sounds. HEART: Regular rhythm. No S3. Distant heart sounds. No murmur. ABDOMEN: Soft. Bowel sounds are present. The patient says he has some urge to void. EXTREMITIES: Have full range of motion. He is ambulatory with a walker. So we will hopefully have everything in line for his discharge tomorrow. We will wait for the final recommendations from the c onsultants. IMPRESSION: Improved mobility post halfway of inactivity in bed secondary to metastatic bone pain t o the spine with T11 fracture and T3 lesion. Primary suspected to be an adenocarcinoma; origin yet b eing determined - intestinal versus pulmonary. SECONDARY DIAGNOSES: 1. Uncontrolled diabetes mellitus, worsened with the steroid use. 2. Chronic obstructive pulmonary disease, bullous emphysema. 3. Chronic pain. 4. History of prostate cancer. 5. New diagnosis - carbuncle of the midback. PLAN OF CARE: Have added some topical therapy and we will see how it evolves tomorrow and perhaps wi ll need to add an oral antibiotic to further help the patient. Plans are being made for home dischar ge. We will see him again tomorrow and give the appropriate order. Anthony Diaz MD cc: [id number] TT: 06/18/2016 10:01:39 Confirmation # [id number] Dictation # [id number] delaney
[2016-06-18] MEDS: oxyCODONE 10 mg ER Tab (oxyCONTIN) PO SCH ×2 (10:04→22:41)
--- NOTE | 2016-06-18 14:44 | PN ---
DATE: 06/18/2016 Seen and examined at the bedside earlier today. The patient started on nystatin last night with reli ef. The gastric discomfort is a bit better. No nausea or vomiting. No reports of any overt GI blee d. VITAL SIGNS: Temperature is 97.7, blood pressure is 110/68, pulse , respirations 18, 96% room a ir. POC glucose 132. This is the labs that are reviewed today. PHYSICAL EXAMINATION: HEENT: Sclera is anicteric. NECK: Supple. CARDIAC: S1, S2. LUNGS: Clear. ABDOMEN: With bowel sounds, soft, less tenderness. No rebound or guarding. EXTREMITIES: No edema. NEUROLOGIC: Awake, alert, and oriented. ASSESSMENT: Status post kyphoplasty for pathological fracture of thoracic vertebrae, status post mag netic resonance cholangiopancreatography reporting large liver lesion that is large mass in the liver with partial obstruction of the biliary ducts, especially in the posterior right lobe, smaller more peripherally located lesions consistent with metastatic disease and also patient with looks like may have some monilial esophagitis. PLAN: We will continue Protonix b.i.d., MiraLax daily. He is also on sennosides. Continue the nyst atin q.i.d. and Lovenox deep venous thrombosis prophylaxis. He is also on aspirin. He also gets Maa lox p.r.n. The patient is undergoing radiation treatments and we are just waiting for final patholog y, which was sent out. As per oncology. Spoke to the , who was at the bedside. The patient was seen and case discussed with Dr. Aviles. Soraida CUMMINS cc: [id number] TT: 06/18/2016 14:44:19 Confirmation # [id number] Dictation # [id number] en
--- NOTE | 2016-06-18 15:44 | PN ---
DATE: 06/18/2016 This is the patient's hospital visit on TCU. For Dr. Camacho. SUBJECTIVE: The patient is a 75-year-old male seen lying awake in bed with his GERD significantly im proved, as is his constipation. The patient is known to suffer from adenocarcinoma with bony metasta tic changes with unknown primary. OBJECTIVE: PHYSICAL EXAMINATION: VITAL SIGNS: Temperature 97.7, pulse 58, respirations 18, blood pressure 110/68, pulse ox 96%. HEENT: Unremarkable. NECK: Supple. HEART: Regular rate, occasional ectopic beat. LUNGS: Clear. ABDOMEN: Soft, nontender. EXTREMITIES: No edema. Minimal tenderness to gentle palpation to the mid lower back. SKIN: Warm, dry and clear. NEUROLOGIC: Awake and alert. LABORATORY DATA: The patient's labs were done yesterday and will repeat it as per . ASSESSMENT: Adenocarcinoma liver mass; however, primary unknown due to no tissue diagnosis, diabetes , constipation, gastroesophageal reflux disease, intractable pain of bony metastatic disease, chronic obstructive pulmonary disease, depression, history of prostate cancer. PLAN: The patient is to continue present medical regimen as per , with reconditioning. Bandar Bond MD cc: [phone] TT: 06/18/2016 15:43:53 Confirmation # [id number] Dictation # [id number] karthik
[2016-06-18 16:27] VITALS: RESP 15; TEMP 98.1; O2SAT 97
[2016-06-18] MEDS: SILODOSIN 8 MG PO SCH (22:42)
[2016-06-19] MEDS: Enoxaparin 40 mg Syringe SC SCH (05:38)
[2016-06-19] MEDS: Pantoprazole 40 mg EC Tab PO SCH (05:38)
[2016-06-19] MEDS: Arformoterol 15 mcg/2 ml Inh Sol IH SCH (07:23)
[2016-06-19] MEDS: Budesonide 0.5 mg/2 ml Inhal Susp UD IH SCH (07:24)
[2016-06-19] MEDS: Metoprolol Succinate 50 mg XL Tab PO SCH (08:38)
[2016-06-19 08:42] VITALS: BP 108/72; PULSE 63
[2016-06-19] MEDS: oxyCODONE 10 mg ER Tab (oxyCONTIN) PO SCH (09:45)
[2016-06-19] MEDS: Nystatin 100,000 Units/ml Oral Susp 5 ml UD PO SCH (10:50)
[2016-06-19] MEDS: Tiotropium 18 mcg Cap For Inhalation IH SCH (10:51)
[2016-06-19] MEDS: POLYETHYLENE GLYCOL 3350 17 GM/Dose PACKET PO SCH (11:49)
--- NOTE | 2016-06-19 16:21 | PN ---
DATE: 06/19/2016 SUBJECTIVE: This patient was seen and evaluated earlier. The patient's was at bedside. The pa ankita is doing much better now, able to tolerate the feeding p .o. The burning sensation has signifi cantly improved. PHYSICAL EXAMINATION: VITAL SIGNS: Temperature is 98.1, blood pressure is 108/72, pulse . HEENT: Atraumatic, anicteric. NECK: Supple. HEART: S1, S2 heard. LUNGS: Bilateral air entry present. ABDOMEN: Soft. There is no mass palpable. No tenderness. EXTREMITIES: No cyanosis, no clubbing. LABORATORY DATA: No recent labs today. IMPRESSION AND PLAN: This 75-year-old patient with metastatic adenocarcinoma on steroids and also go ing through radiation therapy, has developed increased burning sensation of the chest. Appears to be probably secondary to the oropharyngeal candidiasis. The patient has been started on Nystatin, has significant improvement. In view of the steroids we will continue the present regimen of 20 mg omeprazole twice daily. The patient also will continue the Nystatin swish and swallow at least 14 d ays. The patient does have large hepatic lesions. LFTs shows only normal bilirubin with mildly eleva tara alkaline phosphatase and ALT is only 111. Would recommend to also continue the LFTs. The patien t is planned to be discharged today and patient was recommended to follow up with oncology and I will wait for the final pathology. Thank you very much for allowing us to participate in the care of the patient. Leyda Aviles MD cc: [phone] TT: 06/19/2016 16:20:39 Confirmation # [id number] Dictation # [id number] karthik
== END 2016-06-19 14:12 | disposition home health service (06) | DRG 543 ==
LOC: TRCU 20:45
PROVIDERS: ADMIT Family Medicine; ATTEND Family Medicine
PROC: F07Z9FZ Gait Training/Functional Ambulation Treatment using Assistive, Adaptive, Supportive or Protective Equipment (ICD-10-PCS; principal; 2016-06-13)
PROC: F07Z5ZZ Bed Mobility Treatment (ICD-10-PCS; 2016-06-13)
PROC: F07Z8ZZ Transfer Training Treatment (ICD-10-PCS; 2016-06-13)
PROC: F07L6YZ Therapeutic Exercise Treatment of Musculoskeletal System - Lower Back / Lower Extremity using Other Equipment (ICD-10-PCS; 2016-06-13)
PROC: F08Z1FZ Dressing Techniques Treatment using Assistive, Adaptive, Supportive or Protective Equipment (ICD-10-PCS; 2016-06-18)
DX: C79.51 Secondary malignant neoplasm of bone (principal); C78.7 Secondary malignant neoplasm of liver and intrahepatic bile duct; C78.00 Secondary malignant neoplasm of unspecified lung; M84.58XD Pathological fracture in neoplastic disease, other specified site, subsequent encounter for fracture with routine healing; B37.0 Candidal stomatitis; E11.42 Type 2 diabetes mellitus with diabetic polyneuropathy; J44.9 Chronic obstructive pulmonary disease, unspecified; K22.70 Barrett's esophagus without dysplasia; K59.09 Other constipation; E11.65 Type 2 diabetes mellitus with hyperglycemia; E78.5 Hyperlipidemia, unspecified; K21.9 Gastro-esophageal reflux disease without esophagitis; G89.4 Chronic pain syndrome; K29.70 Gastritis, unspecified, without bleeding; L02.232 Carbuncle of back [any part, except buttock and flank]; F32.9 Major depressive disorder, single episode, unspecified; G89.3 Neoplasm related pain (acute) (chronic); Z87.891 Personal history of nicotine dependence; Z85.46 Personal history of malignant neoplasm of prostate; Z79.84 Long term (current) use of oral hypoglycemic drugs

== ENCOUNTER 2016-06-29 11:23 | Day surgery (SDC) | payer MEDICARE, BC ==
[2016-06-25 16:03] VITALS: BMI 27.2
[2016-06-29 12:00] LABS: EOS % 0.1 % (1.5-5.0); GRAN # 14.64 (1.4-6.5); GRAN % 94.6 % (50.0-68.0); HEMATOCRIT 38.7 % (42.0-52.0); LYMPH # 0.3 (1.2-3.4); LYMPH % 1.9 % (22.0-35.0); MEAN CELL VOLUME 91.3 fL (80.0-105.0); MEAN CORPUSCULAR HEMOGLOBIN 29.7 pg (25.0-35.0); MEAN CORPUSCULAR HGB CONC 32.6 g/dl (31.0-37.0); MEAN PLATELET VOLUME 14.3 fl (7.0-11.0); MONO # 0.5 (0.1-0.6); MONO % 3.4 % (1.0-6.0); PLATELET COUNT 118 10^3/uL (120.0-450.0); RED CELL DISTRIBUTION WIDTH 14.9 % (11.5-14.5); WHITE BLOOD COUNT 15.5 10^3/ul (4.5-11.0)
[2016-06-29 12:02] LABS: ADD MANUAL DIFF? NO
[2016-06-29 12:11] LABS: INR 1.04 (0.93-1.08); PARTIAL THROMBOPLASTIN TIME 20.5 Seconds (23.7-30.8)
[2016-06-29 12:18] LABS: BLOOD UREA NITROGEN 19 mg/dL (7-21); CARBON DIOXIDE 27 mmol/L (21-33); CHLORIDE 96 mmol/L (98-107); GFR AFRICAN-AMERICAN > 60; GLUCOSE,RANDOM 124 mg/dL (70-110); POTASSIUM 5.4 mmol/L (3.6-5.0); SODIUM 132 mmol/L (132-148)
--- NOTE | 2016-06-29 12:26 | CP.SDSHP ---
Same Day Surgery H & P - History Proposed Procedure: insertion of venous port. Pre-Op Diagnosis: metastatic bone cancer. - Previous Medical/Surgical History Cardiac: Hypertension, Arrhythmia Pulmonary: Emphysema/COPD, Smoking Endocrine/Metabolic: Diabetes Neuro: Backaches Pain: 0. No Pain (wnl.) Previous Surgical History: cholycystectomy. - Allergies Allergies: Allergies No Known Allergies Allergy (Verified 06/08/16 14:44) - Physical Exam General Appearance: wnl. Mental Status: Alert & Oriented x3 Neuro: WNL Heart: WNL Lungs: WNL GI: WNL - {Optional Preform as Required} Other Pertinent Findings: gerdcollapsed lungx2,sleep apnea. - Impression Impression: metstatic bone cancer. - Date & Time Date: 06/29/16 Time: 12:25 Short Stay Discharge - Short Stay Discharge Admitting Diagnosis/Reason for Visit: PROSTATE CA Z85.46 Disposition: HOME/ ROUTINE Referrals: Anthony Diaz MD [Primary Care Provider] -
[2016-06-29] MEDS ORDERED: Lidocaine 2% Inj (20ml) ONE (12:42)
[2016-06-29] MEDS ORDERED: Midazolam 2 MG/2 ML VIAL ONE (13:05)
[2016-06-29] MEDS ORDERED: Oxycodone/Acetaminophen 5/325 mg Tab PO PRN (14:19)
[2016-06-29] MEDS ORDERED: Sodium Chloride 0.45% 1,000 ML IV SCH (14:30)
[2016-06-29] MEDS ORDERED: Oxycodone/Acetaminophen 5/325 mg Tab ONE (14:59)
[2016-06-29 15:36] VITALS: RESP 18; TEMP 98.2
[2016-06-29 15:37] VITALS: BP 107/70; PULSE 67; O2SAT 96
--- NOTE | 2016-06-29 16:50 | VASCULAR ---
PROCEDURE: Ultrasound and fluoroscopic right internal jugular venous access port. CLINICAL HISTORY: Metastatic prostate carcinoma.Venous port for chemotherapy. PHYSICIAN(S): Jaspal Smith M.D. TECHNIQUE: The relative risks and indications of the procedure were explained to the patient and his and consent obtained. The patient was placed supine on the arteriogram table and the right neck and chest prepped and draped in the usual sterile fashion. Conscious sedation monitoring was provided throughout the procedure by a nurse. Antibiotics were given prior to the procedure. Under direct ultrasound guidance, the right internal jugular vein was punctured with a micro-puncture set. A 0.035 angled Glidewire was advanced into the IVC. A 4 cm incision was made below the right clavicle and the pocket blunted dissected. A 8 [place] single-lumen catheter, 23 cm long, was advanced to the SVC/RA junction. The catheter was trimmed and attached to the port. The port aspirates and injects easily. The port was placed in the pocket and closed in 2 layers. The patient tolerated the procedure well. IMPRESSION: Ultrasound and fluoroscopically placed right internal jugular venous access port.
== END 2016-06-29 16:10 | disposition home or self-care (01) ==
LOC: SDS 11:23
PROVIDERS: ATTEND Radiology Vascular & Interventional Radiology
DX: C79.51 Secondary malignant neoplasm of bone (principal); C61 Malignant neoplasm of prostate; I10 Essential (primary) hypertension; J44.9 Chronic obstructive pulmonary disease, unspecified; E11.9 Type 2 diabetes mellitus without complications; F17.210 Nicotine dependence, cigarettes, uncomplicated; Z79.84 Long term (current) use of oral hypoglycemic drugs
CPT/HCPCS: 36415; 36561; 76937; 77001; 80048; 85025; 85610; 85730; 99152; C1769; C1788; J0690; J1644; J2250; J2405; J3010; J7030

== ENCOUNTER 2016-08-09 14:41 | Inpatient (IN) | payer MEDICARE, BC ==
[2016-08-09 15:06] VITALS: BMI 28.5
[2016-08-09] MEDS ORDERED: Sodium Chloride 0.9% 500 ML IV STA (15:15)
--- NOTE | 2016-08-09 15:22 | ED PDOC ---
Arrival/HPI - General Chief Complaint: Pain, Chronic Time Seen by Provider: 08/09/16 15:01 Historian: Patient - History of Present Illness Narrative History of Present Illness (Text): 08/09/16 15:20 75 year old male whose past medical history includes suspected metastatic lung CA to bones presents to the emergency department from home with weakness, shortness of breath, and confusion for the past few days. states symptoms have been progressively worsening since last week. states patient is DNR/ DNI. Limited history provided. Patient is confused and cannot provide further history. Time/Duration: > week Symptom Onset: Gradual Symptom Course: Worsening Associated Symptoms (Text): None Past Medical History - Provider Review Nursing Documentation Reviewed: Yes - Infectious Disease Hx of Infectious Diseases: None - Tetanus Immunization Tetanus Immunization: Unknown - Cardiac Hx Pacemaker: No - Pulmonary Hx Chronic Obstructive Pulmonary Disease (COPD): Yes - Neurological Hx Paralysis: No - HEENT Hx HEENT Disorder: Yes (wear glasses) Other/Comment: Porter's esophagus - Renal Hx Renal Disorder: Yes (right kidney cyst removal) - Endocrine/Metabolic Hx Diabetes Mellitus Type 2: Yes - Hematological/Oncological Hx Blood Transfusions: No - Integumentary Hx Dermatological Disorder: No - Musculoskeletal/Rheumatological Hx Musculoskeletal Disorders: No - Gastrointestinal Hx Gastrointestinal Disorders: Yes (CONSTIPATION,GASTROENTERITIS,APPENDECTOMY, CHOLECYSTECOMY) - Genitourinary/Gynecological Hx Genitourinary Disorders: No (RENAL CYSTS) Hx Reproductive Disorders: Yes (PROSTATE CA) - Psychiatric Hx Emotional Abuse: No Hx Physical Abuse: No Hx Substance Use: No - Surgical History Hx Appendectomy: Yes Hx Cholecystectomy: Yes Other/Comment: right kidney cyst removal,. hernia sx - Anesthesia Hx Anesthesia Reactions: No Hx Malignant Hyperthermia: No - Suicidal Assessment Feels Threatened In Home Enviroment: No Family/Social History - Physician Review Nursing Documentation Reviewed: Yes Family/Social History: Unknown Family HX Smoking Status: Light Smoker < 10 Cigarettes Daily Hx Alcohol Use: No Hx Substance Use: No Hx Substance Use Treatment: No Allergies/Home Meds Allergies/Adverse Reactions: Allergies No Known Allergies Allergy (Verified 06/08/16 14:44) Home Medications: Home Meds Medication Instructions Recorded Confirmed Albuterol Sulfate [Proair Hfa] 2 inh INH TID PRN 12/03/15 08/09/16 Metoprolol Succinate [Toprol XL] 50 mg PO BID 12/03/15 08/09/16 Fluticasone/Salmeterol 250/50 1 dsk IH BID 06/25/16 08/09/16 [Advair Diskus] Naloxegol Oxalate [Movantik] 12.5 mg PO DAILY 06/25/16 08/09/16 Omeprazole 40 mg PO BID 06/25/16 08/09/16 Mag&Al/Simet/Diphen/Lido [First 1 scoopful PO TID 08/09/16 08/09/16 Magic Mouthwash] Review of Systems - Review of Systems Systems not reviewed;Unavailable: Acuity of Condition Physical Exam Vital Signs Reviewed: Yes Vital Signs Temp Pulse Resp BP Pulse Ox 08/09/16 21:17 129 H 14 120/69 94 L 08/09/16 20:15 104 H 14 116/75 93 L 08/09/16 18:15 94 H 14 116/75 94 L 08/09/16 16:00 91 H 18 109/64 98 08/09/16 14:56 98 F 102 H 18 96/48 L 73 L Temperature: Afebrile Blood Pressure: Normal Pulse: Tachycardic Respiratory Rate: Normal Appearance: Positive for: Ill-Appearing, Cachectic Pain Distress: None Mental Status: Positive for: Confused - Systems Exam Head: Present: Atraumatic, Normocephalic Pupils: Present: PERRL Extroacular Muscles: Present: EOMI Conjunctiva: Present: Normal Mouth: Present: Moist Mucous Membranes Neck: Present: Normal Range of Motion Respiratory/Chest: Present: Good Air Exchange, Other (Diminished breath sounds bilaterally). No: Respiratory Distress, Accessory Muscle Use Cardiovascular: Present: Regular Rate and Rhythm, Normal S1, S2. No: Murmurs Abdomen: Present: Tenderness (Mild nonfocal ), Normal Bowel Sounds. No: Distention, Peritoneal Signs Back: Present: Normal Inspection Upper Extremity: Present: Normal Inspection. No: Cyanosis, Edema Lower Extremity: Present: Edema (1+ bilaterally) Neurological: Present: GCS=15, CN II-XII Intact Skin: Present: Warm, Dry, Normal Color. 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 Differential Diagnosis included but are not limited to: ro pna, metabolic, infectious etiology- pt with ams. will hold off head ct as family reqquests dni/ dnr, no aggressive measures, Plan: -- EKG, CXR -- IV fluids -- Labs -- Reassess and disposition Prior Visits: Notes and results from previous visits were reviewed. Patient last seen in the ED on 06/08/16 for back pain and admitted for evaluation of thoracic spine fracture. Progress Notes: PROCEDURE: CT Angiography Chest, Abdomen and Pelvis with and without intravenous contrast Padded Products Finisher : Dr. Wallis, Segundo ESTRADA Report Date : 08/09/2016 18:40:25 FINDINGS: CT ANGIOGRAPHY OF THE CHEST WITH & WITHOUT CONTRAST: AORTA (CHEST AND ABDOMEN): The thoracic and abdominal aorta are unremarkable, without aneurysm, dissection or rupture. No intramural thrombus identified in the thoracic aorta on the non-contrast ct of the chest. The celiac axis, superior mesenteric artery, inferior mesenteric artery and the renal arteries are widely patent. The pelvic arteries are unremarkable. LUNGS: Multifocal airspace disease the overall appearance suggests pulmonary edema. Left lower lobe pulmonary mass 1.5 cm. Smaller additional pulmonary nodules identified although partially obscured by pulmonary edema. Incidental finding(s): Surgical suture line left upper lobectomy/wedge resection. Underlying severe emphysematous change and multiple bulla identified bilaterally the preponderance of which are 2 cm or less. MEDIASTINUM: Unremarkable. Normal caliber aorta and pulmonary arterial trunk. No aortic dissection. Normal size heart. LYMPH NODES: Unremarkable. PLEURA: Unremarkable. No pneumothorax. No pleural fluid. BONES: No acute fractures. Lytic lesions identified in posterior left 4th rib with additional suspicious findings in the lateral 7th rib. Prior kyphoplasty at the site of the known T11 lytic lesion. OTHER FINDINGS: No large central pulmonary emboli. Timing is not optimal for assessment of pulmonary emboli. None however are seen at the lobar or segmental levels. CT ANGIOGRAPHY OF THE ABDOMEN AND PELVIS WITH CONTRAST: LIVER: Stable hepatic metastatic disease. GALLBLADDER AND BILE DUCTS: Unremarkable. PANCREAS: Unremarkable. No gross lesion or ductal dilatation. SPLEEN: Unremarkable. ADRENALS: Unremarkable. No mass. KIDNEYS AND URETERS: Unremarkable. No hydronephrosis. No solid mass. Multiple bilateral renal cysts again identified. VASCULATURE: Unremarkable. No aortic aneurysm. STOMACH AND BOWEL: Unremarkable. No obstruction. No gross mural thickening. APPENDIX: Normal appendix. PERITONEUM: Unremarkable. No free fluid. No free air. LYMPH NODES: Unremarkable. No enlarged lymph nodes. BLADDER: Unremarkable. REPRODUCTIVE: Unremarkable. BONES: No acute fracture. IMPRESSION: 1. No evidence of aortic dissection, aneurysm. No visible pulmonary emboli. 2. Stable osseous metastatic disease. 3. Acute pulmonary edema. 4. Stable hepatic and pulmonary metastatic disease. 08/09/16 22:35 noted reading of pulmonary edema, bnp neg. b/p systolic 100, will hold diuress at this time. pt dni/dnr, dr gomez accepts tele. dr osborne updated. - Lab Interpretations Microbiology Results: Microbiology Results 08/09/16 16:20 Blood Blood Culture - Preliminary NO GROWTH AFTER 48 HOURS 08/09/16 15:50 Blood S.aureus & Coag-Neg Staph PNA FISH - Final 08/09/16 15:50 Blood Blood Culture - Preliminary Gram Positive Cocci 08/09/16 15:50 Blood Gram Stain - Final Lab Results: 08/09/16 16:20 08/09/16 16:20 Lab Results 08/09/16 16:20: NT-Pro-B Natriuret Pep 264 08/09/16 16:20: Sodium 131 L, Chloride 100, Potassium 4.2, Carbon Dioxide 25, Anion Gap 10, BUN 35 H, Creatinine 1.0, Est GFR ( Amer) > 60, Est GFR ( Non-Af Amer) > 60, Random Glucose 320 H*, Calcium 8.3 L, Magnesium 2.2, Total Bilirubin 1.0, AST 38, ALT 45, Alkaline Phosphatase 211 H, Lactate Dehydrogenase 997 H, Total Creatine Kinase < 20 L, Troponin I 0.01, Total Protein 5.7 L, Albumin 2.4 L, Globulin 3.3, Albumin/Globulin Ratio 0.7 L, Lipase < 10 L 08/09/16 16:20: PT 13.8 H, INR 1.28 H, APTT 29.5 08/09/16 16:20: WBC 15.2 H, RBC 3.39 L, Hgb 10.1 L, Hct 31.5 L, MCV 92.9, MCH 29.8, MCHC 32.1, RDW 17.7 H, Plt Count 302, MPV 11.6 H, Gran % 89.2 H, Lymph % ( Auto) 6.5 L, [place] % (Auto) 4.0, Eos % (Auto) 0.1 L, Baso % (Auto) 0.2, Gran # 13.54 H, Lymph # 1.0 L, [place] # 0.6, Eos # 0.0, Baso # 0.03 08/09/16 16:20: pO2 94 H, VBG pH 7.38, VBG pCO2 40.0, VBG HCO3 23.7, VBG Total CO2 24.9, VBG O2 Sat (Calc) 98.1 H, VBG Base Excess -1.3 L, VBG Potassium 4.4, Sodium 133.0, Chloride 100.0, Glucose 348 H, Lactate 1.9, FiO2 21.0, Venous Blood Potassium 4.4 08/09/16 16:00: Urine Color Yellow, Urine Appearance Clear, Urine pH 5.5, Ur Specific [place] 1.025, Urine Protein Trace H, Urine Glucose (UA) Negative, Urine Ketones Negative, Urine Blood Negative, Urine Nitrate Negative, Urine Bilirubin Negative, Urine Urobilinogen 1.0 H, Ur Leukocyte Esterase Negative, Urine RBC 0 - 2, Urine WBC 0 - 2, Ur Epithelial Cells 0 - 2, Amorphous Sediment Few, Urine Bacteria Mod, Hyaline Casts 0 - 2, Coarse Granular Casts Trace H, Urine Other Fiber - RAD Interpretation Radiology Orders: 08/09/16 15:15 CHEST PORTABLE [RAD] Stat 08/09/16 16:57 ANGIOGRAPHY DISECTION PROTOCOL [CT] Stat - EKG Interpretation EKG Interpretation (Text): EKG shows sinus tachycardia at 123 BPM, otherwise normal. Interpreted by me. Interpreted by ED Physician: Yes Type: 12 lead EKG - Medication Orders Current Medication Orders: Budesonide (Pulmicort Respules) 0.5 mg IH [id number] ANDREA Last Admin: 08/12/16 08:21 Dose: 0.5 mg Al Hydrox/Mg Hydrox/Simethicone 30 ml/Diphenhydramine HCl 75 mg/Lidocaine 30 ml 0 ml PO Q2H PRN PRN Reason: Mouth/Throat Pain Last Admin: 08/11/16 10:30 Dose: 30 ml Home Med (Home Med) 1 unit PO DAILY ANDREA Vancomycin HCl (Vancomycin 1gm) 1 gm in 250 mls @ 167 mls/hr IVPB Q12 ANDREA PRN Reason: Protocol Last Admin: 08/12/16 09:25 Dose: 167 mls/hr Sodium Chloride (Sodium Chloride 0.9%) 1,000 mls @ 100 mls/hr IV .Q10H COUNT INCLUDES THE [facility] Last Admin: 08/12/16 04:30 Dose: 100 mls/hr Cefepime HCl (Maxipime 1gm) 1 gm in 100 mls @ 100 mls/hr IVPB Q8 ANDREA PRN Reason: Protocol Last Admin: 08/12/16 05:40 Dose: 100 mls/hr Doxycycline Hyclate 100 mg/ (Sodium Chloride) 100 mls @ 100 mls/hr IVPB Q12 ANDREA PRN Reason: Protocol Last Admin: 08/12/16 10:40 Dose: 100 mls/hr Insulin Human Regular (Humulin R Low) 0 units SC ACHS COUNT INCLUDES THE [facility] PRN Reason: Protocol Last Admin: 08/12/16 08:33 Dose: 4 units Levalbuterol HCl (Xopenex) 0.63 mg IH [id number] COUNT INCLUDES THE [facility] Last Admin: 08/12/16 08:21 Dose: 0.63 mg Methylprednisolone (Solu-Medrol) 40 mg IVP Q12 COUNT INCLUDES THE [facility] Last Admin: 08/12/16 09:24 Dose: 40 mg Metoprolol Succinate (Toprol Xl) 50 mg PO BID COUNT INCLUDES THE [facility] Last Admin: 08/12/16 09:24 Dose: 50 mg Morphine Sulfate (Morphine) 2 mg IVP Q4H PRN PRN Reason: Pain, severe (8-10) Oxycodone HCl (Oxycontin Extended Release Tab) 10 mg PO Q12 COUNT INCLUDES THE [facility] Stop: 08/14/16 22:01 Last Admin: 08/12/16 09:24 Dose: 10 mg Re-Assess: DANIEL Pain Assessment Document 08/12/16 10:24 RS (Rec: 08/12/16 11:09 RS [id number]) Pain Reassessment Is this a pain reassessment? Yes Sleep Is patient sleeping during reassessment? Yes Polyethylene Glycol (Miralax) 17 gm PO DAILY COUNT INCLUDES THE [facility] Last Admin: 08/12/16 09:24 Dose: 17 gm Verapamil HCl (Verapamil Inj) 2.5 mg IVP Q6H PRN PRN Reason: for heart rate >130 Discontinued Medications Dexamethasone (Decadron Inj) 4 mg IVP Q6 ANDREA Last Admin: 08/10/16 11:47 Dose: 4 mg Digoxin (Lanoxin) 0.25 mg IVP ONCE ONE Stop: 08/10/16 09:40 Last Admin: 08/10/16 11:03 Dose: 0.25 mg Sodium Chloride (Sodium Chloride 0.9%) 500 mls @ 999 mls/hr IV .Q31M STA Stop: 08/09/16 15:45 Last Admin: 08/09/16 16:27 Dose: 999 mls/hr Vancomycin HCl (Vancomycin 1gm) 1 gm in 250 mls @ 167 mls/hr IVPB STAT STA PRN Reason: Protocol Stop: 08/09/16 16:58 Last Admin: 08/09/16 17:01 Dose: 167 mls/hr Piperacillin Sod/Tazobactam Sod (Zosyn 3.375 In Ns 100ml) 100 mls @ 200 mls/hr IVPB STAT STA PRN Reason: Protocol Stop: 08/09/16 15:58 Last Admin: 08/09/16 16:27 Dose: 200 mls/hr Sodium Chloride (Sodium Chloride 0.9%) 1,000 mls @ 60 mls/hr IV .[id number] ANDREA Last Admin: 08/10/16 00:43 Dose: 60 mls/hr Cefepime HCl (Maxipime 1gm) 1 gm in 100 mls @ 100 mls/hr IVPB Q12H ANDREA PRN Reason: Protocol Last Admin: 08/10/16 06:30 Dose: 100 mls/hr Iodixanol (Visipaque 320 Mg/Ml 100 Ml) Confirm Administered Dose 100 ml IV .STK- MED ONE Stop: 08/09/16 17:25 Levalbuterol HCl (Xopenex) 0.63 mg IH [id number] PRN PRN Reason: Shortness of Breath Methylnaltrexone [place] (Relistor) 10 mg SC ONCE ONE Stop: 08/11/16 20:01 Last Admin: 08/11/16 22:40 Dose: 10 mg Morphine Sulfate (Morphine) 4 mg IVP STAT STA Stop: 08/09/16 20:56 Last Admin: 08/09/16 21:17 Dose: 4 mg Re-Assess: DANIEL Pain Assessment Document 08/09/16 22:17 MS (Rec: 08/09/16 23:10 MS [id number]) Pain Reassessment Is this a pain reassessment? Yes Sleep Is patient sleeping during reassessment? No Presence of Pain Presence of Pain No Morphine Sulfate (Morphine) 2 mg IVP Q4H PRN PRN Reason: Pain, severe (8-10) Last Admin: 08/11/16 12:22 Dose: 2 mg Re-Assess: DANIEL Pain Assessment Document 08/11/16 13:22 RKO (Rec: 08/11/16 14:05 [id number]) Pain Reassessment Is this a pain reassessment? Yes Presence of Pain Presence of Pain No Morphine Sulfate (Morphine) 3 mg IVP Q4H PRN PRN Reason: Pain, severe (8-10) - Scribe Statement The provider has reviewed the documentation as recorded by the Thaddeus Gamble Provider Scribe Attestation: All medical record entries made by the Deyaniraibraymundo were at my direction and personally dictated by me. I have reviewed the chart and agree that the record accurately reflects my personal performance of the history, physical exam, medical decision making, and the department course for this patient. I have also personally directed, reviewed, and agree with the discharge instructions and disposition. Disposition/Present on Arrival - Present on Arrival Any Indicators Present on Arrival: No History of DVT/PE: No History of Uncontrolled Diabetes: No Urinary Catheter: No History of Decub. Ulcer: No History Surgical Site Infection Following: None - Disposition Have Diagnosis and Disposition been Completed?: Yes Diagnosis: Pneumonia, Sepsis Disposition: HOSPITALIZED Disposition Time: 07:00 Condition: GUARDED
[2016-08-09] MEDS ORDERED: Vancomycin 1gm in NS 250ml 1 GM/250 ML BAG IVPB STA (15:29)
[2016-08-09] MEDS ORDERED: Piperacillin/Tazobact 3.375 gm 100 ML IVPB STA (15:29)
--- NOTE | 2016-08-09 15:33 | RAD ---
HISTORY: weakness COMPARISON: 06/08/2016. FINDINGS: The right MediPort terminates in the SVC. LUNGS: There is worsening pulmonary venous congestion. Also noted is airspace disease in both lungs. PLEURA: No significant pleural effusion identified, no pneumothorax apparent. CARDIOVASCULAR: Normal. OSSEOUS STRUCTURES: There is mild levoscoliosis in the thoracic spine and diffuse bone demineralization. VISUALIZED UPPER ABDOMEN: Normal. OTHER FINDINGS: None. IMPRESSION: Multifocal airspace disease in both lungs.
[2016-08-09 16:35] LABS: PH,URINE 5.5 (4.7-8.0); URINE BILIRUBIN NEGATIVE (NEGATIVE); URINE BLOOD NEGATIVE (NEGATIVE); URINE GLUCOSE (UA) NEGATIVE (NEGATIVE); URINE KETONE NEGATIVE (NEGATIVE); URINE LEUKOCYTE ESTERASE NEGATIVE Leu/uL (NEGATIVE); URINE PROTEIN TRACE mg/dL (<30 mg/dL)
[2016-08-09 16:36] LABS: ADD MANUAL DIFF? NO
[2016-08-09 16:36] LABS: URINE APPEARANCE CLEAR (CLEAR); URINE COLOR YELLOW (YELLOW)
[2016-08-09 16:38] LABS: VENOUS BLOOD GAS BASE EXCESS -1.3 mmol/L (0.0-2.0); VENOUS BLOOD PH 7.38 (7.32-7.43)
[2016-08-09 16:39] LABS: BASO # 0.03 K/mm3 (0.0-2.0); BASO % 0.2 % (0.0-3.0); EOS % 0.1 % (1.5-5.0); GRAN # 13.54 (1.4-6.5); GRAN % 89.2 % (50.0-68.0); HEMATOCRIT 31.5 % (42.0-52.0); LYMPH % 6.5 % (22.0-35.0); MEAN CELL VOLUME 92.9 fL (80.0-105.0); MEAN CORPUSCULAR HEMOGLOBIN 29.8 pg (25.0-35.0); MEAN CORPUSCULAR HGB CONC 32.1 g/dl (31.0-37.0); MEAN PLATELET VOLUME 11.6 fl (7.0-11.0); MONO # 0.6 (0.1-0.6); PLATELET COUNT 302 10^3/uL (120.0-450.0); RED CELL DISTRIBUTION WIDTH 17.7 % (11.5-14.5); WHITE BLOOD COUNT 15.2 10^3/ul (4.5-11.0)
[2016-08-09 16:39] LABS: URINE EPITHELIAL CELLS 0 - 2 /hpf (0-5); URINE RBC 0 - 2 /hpf (0-2); URINE WBC 0 - 2 /hpf (0-6)
[2016-08-09 16:40] LABS: URINE AMORPHOUS SEDIMENT FEW; URINE BACTERIA MOD (NEG)
[2016-08-09 16:51] LABS: ALB/GLOB RATIO 0.7 (1.1-1.8); ALKALINE PHOSPHATASE 211 U/L (38-133); ALT/SGPT 45 U/L (7-56); AST/SGOT 38 U/L (15-59); BLOOD UREA NITROGEN 35 mg/dL (7-21); CALCIUM 8.3 mg/dL (8.4-10.5); CARBON DIOXIDE 25 mmol/L (21-33); CHLORIDE 100 mmol/L (98-107); GFR AFRICAN-AMERICAN > 60; MAGNESIUM 2.2 mg/dL (1.7-2.2); POTASSIUM 4.2 mmol/L (3.6-5.0); SODIUM 131 mmol/L (132-148); TOTAL PROTEIN 5.7 g/dL (5.8-8.3)
[2016-08-09 16:52] LABS: INR 1.28 (0.93-1.08); PARTIAL THROMBOPLASTIN TIME 29.5 Seconds (23.7-30.8)
[2016-08-09 16:54] LABS: LIPASE < 10 U/L (23-300)
[2016-08-09 16:56] LABS: GLUCOSE,RANDOM 320 mg/dL (70-110)
[2016-08-09 17:03] LABS: TROPONIN I 0.01 ng/mL
[2016-08-09] MEDS ORDERED: Iodixanol 320 MG/ML 100 ML BOTTLE IV ONE (17:24)
--- NOTE | 2016-08-09 18:42 | CT ---
PROCEDURE: CT Angiography Chest, Abdomen and Pelvis with and without intravenous contrast HISTORY: shortness of breath/abd pain h/o of ca, r/o pe COMPARISON: August 09, 2016. Single-view chest. 06/08/2016 CT thorax abdomen and pelvis TECHNIQUE: Contiguous axial images of the chest, abdomen and pelvis were obtained in the phase of aortic enhancement. A noncontrast enhanced CT of the chest was also obtained to evaluate for possible intramural thrombus. Coronal and sagittal reformats were generated. IV dose administered: 100 cc Visipaque 320. Radiation dose: Total exam DLP = 810.35 mGy-cm. This CT exam was performed using one or more of the following dose reduction techniques: Automated exposure control, adjustment of the mA and/or kV according to patient size, and/or use of iterative reconstruction technique. FINDINGS: CT ANGIOGRAPHY OF THE CHEST WITH & WITHOUT CONTRAST: AORTA (CHEST AND ABDOMEN): The thoracic and abdominal aorta are unremarkable, without aneurysm, dissection or rupture. No intramural thrombus identified in the thoracic aorta on the non-contrast ct of the chest. The celiac axis, superior mesenteric artery, inferior mesenteric artery and the renal arteries are widely patent. The pelvic arteries are unremarkable. LUNGS: Multifocal airspace disease the overall appearance suggests pulmonary edema. Left lower lobe pulmonary mass 1.5 cm. Smaller additional pulmonary nodules identified although partially obscured by pulmonary edema. Incidental finding(s): Surgical suture line left upper lobectomy/wedge resection. Underlying severe emphysematous change and multiple bulla identified bilaterally the preponderance of which are 2 cm or less. MEDIASTINUM: Unremarkable. Normal caliber aorta and pulmonary arterial trunk. No aortic dissection. Normal size heart. LYMPH NODES: Unremarkable. PLEURA: Unremarkable. No pneumothorax. No pleural fluid. BONES: No acute fractures. Lytic lesions identified in posterior left 4th rib with additional suspicious findings in the lateral 7th rib. Prior kyphoplasty at the site of the known T11 lytic lesion. OTHER FINDINGS: No large central pulmonary emboli. Timing is not optimal for assessment of pulmonary emboli. None however are seen at the lobar or segmental levels. CT ANGIOGRAPHY OF THE ABDOMEN AND PELVIS WITH CONTRAST: LIVER: Stable hepatic metastatic disease. GALLBLADDER AND BILE DUCTS: Unremarkable. PANCREAS: Unremarkable. No gross lesion or ductal dilatation. SPLEEN: Unremarkable. ADRENALS: Unremarkable. No mass. KIDNEYS AND URETERS: Unremarkable. No hydronephrosis. No solid mass. Multiple bilateral renal cysts again identified. VASCULATURE: Unremarkable. No aortic aneurysm. STOMACH AND BOWEL: Unremarkable. No obstruction. No gross mural thickening. APPENDIX: Normal appendix. PERITONEUM: Unremarkable. No free fluid. No free air. LYMPH NODES: Unremarkable. No enlarged lymph nodes. BLADDER: Unremarkable. REPRODUCTIVE: Unremarkable. BONES: No acute fracture. OTHER FINDINGS: None. IMPRESSION: 1. No evidence of aortic dissection, aneurysm. No visible pulmonary emboli. 2. Stable osseous metastatic disease. 3. Acute pulmonary edema. 4. Stable hepatic and pulmonary metastatic disease.
[2016-08-09] MEDS ORDERED: Morphine 4 mg/ml ISec IVP STA (20:55)
[2016-08-09] MEDS ORDERED: Sodium Chloride 0.9% 1,000 ML IV SCH (23:45)
[2016-08-09] MEDS ORDERED: Levalbuterol 0.63 MG/3 ML Inhal Soln UD IH PRN (23:47)
[2016-08-10] MEDS: Metoprolol Succinate 50 mg XL Tab PO SCH ×4 (00:43→17:48)
[2016-08-10] MEDS: Dexamethasone 4 mg/1 ml IVP SCH ×3 (00:44→11:47)
[2016-08-10] MEDS: Morphine 2 mg/ml ISec IVP PRN ×2 (00:44→05:09)
[2016-08-10] MEDS: Levalbuterol 0.63 MG/3 ML Inhal Soln UD IH SCH ×3 (01:20→13:57)
[2016-08-10] MEDS: Sodium Chloride 0.9% 1,000 ML IV SCH ×2 (02:12→17:48)
[2016-08-10] MEDS ORDERED: Cefepime 1gm in NS 100ml 1 GM/100 ML BAG IVPB SCH (06:02)
[2016-08-10 07:04] LABS: HEMATOCRIT 33.2 % (42.0-52.0); MEAN CELL VOLUME 93.5 fL (80.0-105.0); MEAN CORPUSCULAR HEMOGLOBIN 29.3 pg (25.0-35.0); MEAN CORPUSCULAR HGB CONC 31.3 g/dl (31.0-37.0); MEAN PLATELET VOLUME 11.2 fl (7.0-11.0); WHITE BLOOD COUNT 16.8 10^3/ul (4.5-11.0)
[2016-08-10 07:16] LABS: ALB/GLOB RATIO 0.8 (1.1-1.8); ALKALINE PHOSPHATASE 217 U/L (38-133); ALT/SGPT 40 U/L (7-56); AST/SGOT 40 U/L (15-59); BILIRUBIN,TOTAL 1.2 mg/dL (0.2-1.3); BLOOD UREA NITROGEN 33 mg/dL (7-21); CARBON DIOXIDE 23 mmol/L (21-33); CHLORIDE 104 mmol/L (98-107); GFR AFRICAN-AMERICAN > 60; POTASSIUM 4.7 mmol/L (3.6-5.0); SODIUM 136 mmol/L (132-148); TOTAL PROTEIN 5.9 g/dL (5.8-8.3)
[2016-08-10 07:24] LABS: GLUCOSE,RANDOM 327 mg/dL (70-110)
--- NOTE | 2016-08-10 07:49 | CON ---
DATE: 08/10/2016 REASON FOR CONSULTATION: Shortness of breath. REFERRING PHYSICIAN: Dr. Camacho. History is obtained via extensive discussion with the night nurse. I have also reviewed the chart at length. The patient does not appear to be an adequate historian. 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 The night nurse does note a mild cough. There is no history of significant sputum production. There is no history of chest pain, coughing up of blood or chest pain -- made worse with deep respirations. There is no history of temperatures, chills or infectious exposure. There is no history of night sweats. The patient does have a history of weight loss with decreased appetite over the past few months. No history of leg or calf pains. No history of syncope or diaphoresis. No history of recent travel or trauma. REVIEW OF SYSTEMS: No history of nausea, vomiting or diarrhea. No acute urinary symptoms. Rest of review of systems is negative. ALLERGIES: No known allergies. SOCIAL HISTORY: Positive for extensive tobacco usage. No alcohol. FAMILY HISTORY: No inheritable diseases. HOME MEDICATIONS: Include Decadron, ProAir, Toprol, Advair, Rapaflo, Topamax, Spiriva, oxycodone, Glucophage. PHYSICAL EXAMINATION: GENERAL: The patient is not short of breath at rest at the time of my examination. He is not using accessory muscles for breathing. He is currently on BiPAP. VITAL SIGNS: Temperature is 98.3, pulse 134, respirations 18, blood pressure 114/81. Oxygen saturation on BiPAP is 95%. HEENT: Normocephalic, atraumatic. NECK: No JVD. CARDIOVASCULAR: Systolic ejection murmur at the lower left sternal border. No S3 gallop. LUNGS: Crackles at both bases. Mild bilateral rhonchi and wheezing are also appreciated. EXTREMITIES: No clubbing, cyanosis, or edema. Calves are nontender to palpation. GASTROINTESTINAL: Abdomen is soft, nontender, nondistended. Bowel sounds are positive. SKIN: No acute rash. NEUROLOGIC: Limited at the present time. PERTINENT LABORATORY DATA: CAT scan of the chest was done as an angiogram protocol. There is no evidence of aortic dissection, aneurysm or pulmonary embolism seen. There are multifocal patchy infiltrates noted in both lungs. There is also a left lower lobe mass seen, with smaller additional pulmonary nodules bilaterally. There is no significant lymphadenopathy. There are multiple lytic lesions noted in the posterior left lateral 7th rib and T11. There also appears to be stable hepatic metastatic disease. CBC: White count 15.2, hemoglobin 10.1, hematocrit 31.5, platelets of 302. Complete metabolic profile: Sodium 131, BUN 35, glucose 320, calcium 8.3, alkaline phosphatase 211 , LDH 997, total protein 5.7, albumin 2.4. Rest of the metabolic profile is within normal limits. IMPRESSION: 1. Bilateral pneumonia. 2. Acute bronchitis. 3. 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 4. Liver and bony metastasis. 5. Advanced chronic obstructive pulmonary disease. 6. Anemia. PLAN: Again, I did discuss the case with the night nurse at length. I have also reviewed the chart at length. The patient presents to [facility] with a 4-day history of worsening weakness, confusion and shortness of breath. As above, the night nurse also notices a mild cough. I did review the CAT scan of the chest -- done as an angiogram protocol. There is no pulmonary embolism seen. There are scattered bilateral patchy infiltrates -- consistent with pneumonia. There is also evidence of metastatic disease in the liver and bones, in addition to multiple pulmonary nodules. The patient has been pancultured--pending. The patient has also been placed on antibiotic therapy. Infectious disease evaluation with Dr. Bunn is noted. Procalcitonin is ordered. On physical exam, there is mild bronchospasm noted. I will continue with the current nebulizer treatments,add inhaled pulmicort, and add aspiration precautions. The patient is also on intravenous Decadron. I will discuss the Decadron dosage with Dr. Camacho this morning. Hopefully, we can decrease the dosage. The patient is currently on BiPAP with an oxygen saturation of 95%. On presentation to the Emergency Room, the patient's oxygen saturations were in the 70s. I will try possibly transitioning to nasal cannula this morning-- discussed with nurse. Cardiology evaluation with Dr. Montague has been ordered -- due to the tachycardia. Input by Dr. Camacho (oncology) is also noted. Unfortunately, the overall status/prognosis of this patient is very poor. He is currently DNR/DNI status. I will discuss the above with the attending physician this morning. Thank you very for this pulmonary consultation. Abilio Woods MD cc: [id number] TT: 08/10/2016 07:48:56 Confirmation # [id number] Dictation # [id number] tn MTDD
[2016-08-10] MEDS: Budesonide 0.5 mg/2 ml Inhal Susp UD IH SCH (07:51)
[2016-08-10] MEDS: Insulin Reg-LOW-Coverage SC SCH ×4 (08:32→22:07)
[2016-08-10] MEDS ORDERED: Digoxin 500 mcg/2ml (0.5 mg/2ml) Inj IVP ONE (09:39)
--- NOTE | 2016-08-10 09:43 | CARD ---
APPROVED REPORT EKG Measurement Heart [id number] TN 130P4 [id number] <Conclusion> Sinus tachycardia with premature atrial complexes with aberrant conduction Incomplete right bundle branch block No change except faster rate and APCs now present
[2016-08-10] MEDS ORDERED: Piperacillin/Tazobact 3.375 gm 100 ML IVPB SCH (10:00)
--- NOTE | 2016-08-10 10:06 | CON ---
DATE: 08/10/2016 SERVICE: Cardiology. CONSULTING PHYSICIAN: Dr. Mayi Montague. REASON FOR CONSULTATION: Sinus tachycardia, cardiac evaluation. BRIEF CLINICAL HISTORY: A 75-year-old male with past medical history significant for metastatic lung CA who was brought by the family, is at bedside, complaining of not eating and drinking, feelin g very weak, lethargic, shortness of breath, confused, hardly taking 1-2 sips of water for 2-3 days. Code status DNR. Heart rate of 140. He denies any chest pain, denies any palpitation. Denies any shortness of breath. PAST MEDICAL HISTORY: Significant for COPD, history of spontaneous pneumothorax, history of chest tu be, history of video-assisted thoracoscopy in the past, history of spontaneous pneumothorax 10 years ago, history of lung CA with metastasis, diabetes, hypertension, hyperlipidemia in the past. PREVIOUS CARDIAC WORKUP: As follows: The patient had a stress test on 12/03/2015 that shows normal m yocardial perfusion study, fixed defect, no reversible ischemia, ejection fraction 79 dated 12/03/2015 . PAST SURGICAL HISTORY: Significant for stone in common biliary duct, history of appendectomy in the past, history of spontaneous pneumothorax 10 years ago in [place] and history of pneumothorax on 12/02 second episode, status post a VAT and thoracoscopy. SOCIAL HISTORY: Denies smoking. Denies any history of alcohol abuse. Used to smoke a pack a day, q uit 20 years ago. Now smokes 1-2 cigarettes a day. CURRENT MEDICATIONS: The patient at home was taking oxycodone, metformin, Topamax, Spiriva, omeprazo le, metoprolol XL 50 mg twice a day and Cymbalta. REVIEW OF SYSTEMS: As per HPI. PHYSICAL EXAMINATION: VITAL SIGNS: Temperature afebrile, heart rate 130, blood pressure 116/79. HEENT: PERRLA. Extraocular muscles intact. NECK: Supple. No carotid bruits. No thyromegaly. CHEST: Clear to auscultation. HEART: S1, S2 regular. ABDOMEN: Soft. EXTREMITIES: Clubbing and cyanosis negative. LABORATORY DATA: Blood workup as follows: WBC 16.8, hemoglobin 10.4, hematocrit 33.2, platelet coun t 341. Chemistry shows sodium 130, potassium 4.7, chloride 104, carbon dioxide 23, anion gap of 14, BUN 33, creatinine 1.1, blood sugar 327. Total protein 5.0, albumin 2.6, albumin/globulin ratio 0.8. IMPRESSION: Protein calorie malnutrition which was present on admission, moderate on admission 2.4, anemia, lung cancer with metastatic disease, history of a stress test in November essentially negati ve. CAT scan of the chest was done that shows stable osseous metastatic disease, no evidence of acut e pulmonary embolism or aortic dissection. Stable hepatic and pulmonary metastatic disease. As ment ioned, a stress test 12/03/2015 essentially negative, fixed defect, ejection fraction 79%. Shortness of breath and tachycardia is multifactorial, secondary to anemia, secondary to underlying malignant c ondition of the lung with metastatic disease, diabetes, hypertension, hyperlipidemia, history of pneu mothorax twice, status post video-assisted thoracoscopy. RECOMMENDATION: We will put low dose of beta nohemi, give a dose of digoxin to slow the heart. We will get echo to assess LV function. Protein-calorie malnutrition, anemia. Overall, the patient's c ondition is critical. Assisted prognosis is guarded. Code status DNR. We will follow with you. We will adjust the medication. Thank you, Dr. Camacho, for providing us the opportunity in taking care of the patient. Mayi Montague MD cc: [id number] TT: 08/10/2016 10:05:15 Confirmation # [id number] Dictation # [id number] tn
--- NOTE | 2016-08-10 10:40 | CP.PCM.CON ---
History of Present Illness - History of Present Illness History of Present Illness: 75 year old male with PMH of metastatic lung cancer (with mets to the thoracic spine), COPD, S/P cyst removal from right kidney, S/P appendectomy, S/P cholecystectomy, history of Porter's esophagus, Prostate CA was brought in to [facility] because of shortness of breath and confusion for the past few days, associated with some cough with clear phlegm. There was no note of fever or chills, no nausea or vomiting, no diarrhea, no abdominal pain, no chest pain, no headache or dizziness. The patient is currently more awake as per family and more alert than previous days. In the ED, CT scan of the chest was done which shows possible pneumonia. Infectious diseases consult is requested to further evaluate and manage. Review of Systems - Review of Systems All systems: reviewed and no additional remarkable complaints except (as per HPI ) Past Patient History - Infectious Disease Hx of Infectious Diseases: None - Tetanus Immunizations Tetanus Immunization: Unknown - Past Social History Smoking Status: Former Smoker - CARDIAC Hx Cardiac Disorders: Yes Hx Cardia Arrhythmia: Yes (afib) Hx Hypertension: Yes - PULMONARY Hx Respiratory Disorders: Yes Hx Bronchitis: Yes Hx Chronic Obstructive Pulmonary Disease (COPD): Yes - NEUROLOGICAL Hx Neurological Disorder: No - HEENT Hx HEENT Problems: Yes (wear glasses) Other/Comment: Porter's esophagus - RENAL Hx Chronic Kidney Disease: No Other/Comment: right kidney cyst removal - ENDOCRINE/METABOLIC Hx Endocrine Disorders: Yes Hx Diabetes Mellitus Type 2: Yes - HEMATOLOGICAL/ONCOLOGICAL Hx Blood Disorders: Yes Hx Cancer: Yes (Bone, Lung, Prostate, Liver) - INTEGUMENTARY Hx Dermatological Problems: Yes Other/Comment: Stage II pressure ulcers to buttocks - MUSCULOSKELETAL/RHEUMATOLOGICAL Hx Musculoskeletal Disorders: Yes Hx Falls: No Other/Comment: T3 compression fx, kyphoplasty - GASTROINTESTINAL Hx Gastrointestinal Disorders: Yes Other/Comment: gastroenteritis - GENITOURINARY/GYNECOLOGICAL Hx Genitourinary Disorders: No - PSYCHIATRIC Hx Psychophysiologic Disorder: Yes Hx Depression: Yes Hx Substance Use: No - SURGICAL HISTORY Hx Surgeries: Yes Hx Appendectomy: Yes Hx Cholecystectomy: Yes Other/Comment: right kidney cyst removal, kyphoplasty - ANESTHESIA Hx Anesthesia Reactions: No Hx Malignant Hyperthermia: No Meds Allergies/Adverse Reactions: Allergies Allergy/AdvReac Type Severity Reaction Status Date / Time No Known Allergies Allergy Verified 06/08/16 14:44 - Medications Medications: Current Medications Dexamethasone (Decadron Inj) 4 mg IVP Q6 [facility] Last Admin: 08/10/16 05:08 Dose: 4 mg Vancomycin HCl (Vancomycin 1gm) 1 gm in 250 mls @ 167 mls/hr IVPB Q12 ANDREA PRN Reason: Protocol Piperacillin Sod/Tazobactam Sod (Zosyn 3.375 In Ns 100ml) 100 mls @ 200 mls/hr IVPB Q12 ANDREA PRN Reason: Protocol Stop: 08/10/16 22:29 Sodium Chloride (Sodium Chloride 0.9%) 1,000 mls @ 100 mls/hr IV .Q10H [facility] Last Admin: 08/10/16 02:12 Dose: Not Given Insulin Human Regular (Humulin R Low) 0 units SC ACHS ANDREA PRN Reason: Protocol Levalbuterol HCl (Xopenex) 0.63 mg IH [id number] [facility] Last Admin: 08/10/16 01:20 Dose: 0.63 mg Metoprolol Succinate (Toprol Xl) 50 mg PO BID [facility] Last Admin: 08/10/16 00:43 Dose: 50 mg Morphine Sulfate (Morphine) 2 mg IVP Q4H PRN PRN Reason: Pain, severe (8-10) Last Admin: 08/10/16 05:09 Dose: 2 mg Physical Exam - Constitutional Appears: Non-toxic, No Acute Distress - Head Exam Head Exam: NORMAL INSPECTION - ENT Exam ENT Exam: Mucous Membranes Moist - Neck Exam Neck exam: Negative for: Lymphadenopathy, Meningismus - Respiratory Exam Respiratory Exam: Decreased Breath Sounds Additional comments: right anterior chest wall port site clean and non-tender - Cardiovascular Exam Cardiovascular Exam: +S1, +S2 - GI/Abdominal Exam GI & Abdominal Exam: Soft. absent: Tenderness Results - Vital Signs Recent Vital Signs: Last Vital Signs Temp 98.3 F 08/10/16 05:51 Pulse 135 H 08/10/16 05:51 Resp 18 08/10/16 05:51 BP 114/81 08/10/16 05:51 Pulse Ox 95 08/10/16 05:51 - Labs Result Diagrams: 08/10/16 06:40 08/10/16 06:40 Assessment & Plan - Assessment and Plan (Free Text) Plan: Assessment systemic inflammatory response syndrome, R/O sepsis due to bilateral healtcare- associated pneumonia in a patient with probable acute bronchitis metastatic lung cancer (with mets to the thoracic spine) COPD S/P cyst removal from right kidney S/P appendectomy S/P cholecystectomy history of Porter's esophagus Prostate CA Plan Started the patient on Vancomycin and Cefepime pending blood, sputum cx, PCT; reviewed CT chest Reviewed Dr. Woods's evaluation and recommendations will follow clinically
[2016-08-10 11:07] VITALS: PULSE 139
[2016-08-10] MEDS: Vancomycin 1gm in NS 250ml 1 GM/250 ML BAG IVPB SCH ×2 (13:19→22:09)
[2016-08-10] MEDS: Cefepime 1gm in NS 100ml 1 GM/100 ML BAG IVPB SCH ×2 (15:33→22:08)
[2016-08-10] MEDS: Aluminum Hydroxide/Magnesium 30 ML, DiphenhydrAMINE 75 MG, Lidocaine 2% Viscous 30 ML PO PRN (18:02)
[2016-08-10] MEDS: MethylPREDNISolone 40 mg Vial IVP SCH (22:08)
--- NOTE | 2016-08-10 23:46 | HP ---
HISTORY OF PRESENT ILLNESS: This is a 75-year-old male with a past medical history of metastatic dorita nocarcinoma, clinically of lung origin, with metastatic disease to the lungs, to the liver, and to th e bone. Had presented with worsening intractable pain in the lower back. Underwent kyphoplasty foll owing external radiation, upon which time he established a diagnosis of metastatic adenocarcinoma. P ost-completion of radiation, patient was started on weekly Navelbine. He had 3 weeks of Navelbine th erapy with 1 week off. He is now admitted from home with progressive weakness, shortness of breath, and confusion for the past few days. states that his symptoms have been worsening over the last week. He is a DNR/DNI and patient had been having trouble breathing at home, and he has a history o f chronic lung disease, and he is on CPAP at home, but he had not used it for several days. The caro ent is confused and cannot provide further history. PAST MEDICAL HISTORY: As documented through the is positive for the fact that he has metastatic adenocarcinoma, probably of lung origin, with metastatic disease in the liver and the bone, status p ost kyphoplasty and radiation to the lumbar spine, following which the patient was started on systemi c chemotherapy, and also received Xgeva, which is a RANK ligand inhibitor as an outpatient to control the metastatic disease to the bone. REVIEW OF SYSTEMS: Systems are reviewed. As patient's condition did not allow us to do so, as patie nt is confused and disoriented, but most of the history is obtained from my prior knowledge of the pa tient and from the history given by his , who is a nurse who accompanies him. HOME MEDICATIONS: Include albuterol, ProAir 2 inhalations t.i.d., metoprolol 50 mg p.o. b.i.d., Adva ir Diskus 1 disk inhaled b.i.d. The patient is on Movantik 12.5 mg p.o. daily, omeprazole 40 mg p.o. b.i.d., and magic mouthwash that he was using for his painful sores in the mouth 1 teaspoon t.i.d. PHYSICAL EXAMINATION: VITAL SIGNS: Revealed a pulse of 129, respirations 14, blood pressure 120/69, and pulse ox of 94% on room air. T-max: The patient is afebrile. Blood pressure is normal. The patient is tachycardic. HEENT: Head is normocephalic, atraumatic. Conjunctivae pale. Sclerae are anicteric. Pupils are e qually reactive to light and accommodation. Examination of the oropharynx reveals tongue to be moist , no oropharyngeal lesions are noted. Tongue is coated. NECK: Supple. There is no adenopathy. No jugular venous distention noted. LUNGS: Reveal diminished breath sounds bilaterally. The patient is not using any accessory muscles, but definitely has diminished breath sounds bilaterally, specifically posteriorly. CARDIOVASCULAR: Reveals S1 and S2 to be normal. No gallop is heard. The patient is tachycardic. ABDOMEN: Soft. The patient had mid epigastric tenderness. Normal bowel sounds are noted. No diste ntion. No rebound. No rigidity or guarding is noted. BACK: Reveals lower lumbar back pain. The patient also has a sacral decubiti related to radiation t hat he has completed to the lumbar and sacral area. EXTREMITIES: Examination of the upper and lower extremities reveals edema of the lower extremities, 1+. No cyanosis, clubbing is noted. NEUROLOGIC: High functions: The patient is confused. No focal deficits are noted. SKIN: Skin turgor is decreased. No skin lesions are noted. ASSESSMENT NOTES AND PLAN: The patient in the Emergency Room had a chest x-ray, followed by a CT ang io, which reveals bilateral small airway disease along with lung nodules in both lungs, consistent wi th bilateral pneumonitis rather than pulmonary edema. Etiology of this airspace disease could be inf ectious versus metastatic or neoplastic. PLAN: Would be to start the patient on IV fluids. EKG has been already ordered. Blood cultures hav e been done. Based on the CAT scan and the findings on the labs, patient is going to be started on I V antibiotics, oxygen, and aggressive antibiotic therapy at this time. DIAGNOSTIC DATA: The CT angiogram of the chest with and without contrast shows thoracic and abdomina l aorta to be unremarkable without dissection or rupture. There is no intramural thrombus. Superior mesenteric artery, celiac plexus, and inferior mesenteric artery are widely patent. As mentioned, t here is multifocal airspace disease in the lungs suggestive of infection rather than pulmonary edema. There is a left lower lobe pulmonary mass, 1.5 cm, and small additional pulmonary nodules identifie d bilaterally. Underlying emphysematous changes are also noted. There is no evidence of any large c entral pulmonary emboli on the CT angiogram. The patient has stable metastatic disease on the CAT sc an of the abdomen and pelvis. No other major significant findings are noted, including any new acute fracture. LABORATORY DATA: Reveals a white count of 15.2; hemoglobin 10.5; hematocrit 31.5; platelet count 302 ,000. Sodium is 131, potassium is 4.2, chloride is 100, the CO2 is 25, BUN is 35, creatinine 1, bloo d sugar is 320. BNP is 264. Urinalysis shows protein trace high. Coarse granular casts are seen. The patient has been started on broad spectrum antibiotics, including vancomycin and 1 dose of Zosyn, which will continue as an inpatient. Consultations with ID, pulmonary, and cardiology have been obt ained. The patient received morphine p.r.n. for pain control as well as the patient has metastatic d isease to the spine. Since the patient has a living will, DNR/DNI orders for that have also been put in. Will continue to monitor the patient over the next 24-72 hours and if he continues to deteriora te will discuss with the family about getting palliative care involved, as well. Routine post exam i nstructions have been given to the patient's and I will be in continuous touch with her over the next 24-48 hours. Soni Camacho MD cc: [id number] TT: 08/10/2016 23:45:13 [email or web address]
[2016-08-11] MEDS: Levalbuterol 0.63 MG/3 ML Inhal Soln UD IH SCH ×4 (02:40→20:08)
[2016-08-11] MEDS: Cefepime 1gm in NS 100ml 1 GM/100 ML BAG IVPB SCH ×3 (06:52→22:22)
[2016-08-11] MEDS: Sodium Chloride 0.9% 1,000 ML IV SCH ×4 (06:55→22:50)
[2016-08-11 07:19] LABS: BASO # 0.04 K/mm3 (0.0-2.0); BASO % 0.4 % (0.0-3.0); GRAN % 92.4 % (50.0-68.0); LYMPH # 0.5 (1.2-3.4); LYMPH % 4.2 % (22.0-35.0); MEAN CELL VOLUME 96.4 fL (80.0-105.0); MEAN CORPUSCULAR HEMOGLOBIN 29.2 pg (25.0-35.0); MEAN CORPUSCULAR HGB CONC 30.3 g/dl (31.0-37.0); MEAN PLATELET VOLUME 11.9 fl (7.0-11.0); MONO # 0.3 (0.1-0.6); PLATELET COUNT 178 10^3/uL (120.0-450.0); RED CELL DISTRIBUTION WIDTH 18.4 % (11.5-14.5); WHITE BLOOD COUNT 10.8 10^3/ul (4.5-11.0)
[2016-08-11 07:23] LABS: ADD MANUAL DIFF? NO
[2016-08-11 07:59] LABS: ALB/GLOB RATIO 0.8 (1.1-1.8); ALKALINE PHOSPHATASE 188 U/L (38-133); ALT/SGPT 38 U/L (7-56); AST/SGOT 33 U/L (15-59); BILIRUBIN,TOTAL 0.7 mg/dL (0.2-1.3); BLOOD UREA NITROGEN 21 mg/dL (7-21); CALCIUM 7.5 mg/dL (8.4-10.5); CARBON DIOXIDE 21 mmol/L (21-33); CHLORIDE 110 mmol/L (98-107); GFR AFRICAN-AMERICAN > 60; GLUCOSE,RANDOM 286 mg/dL (70-110); POTASSIUM 4.1 mmol/L (3.6-5.0); SODIUM 139 mmol/L (132-148); TOTAL PROTEIN 5.8 g/dL (5.8-8.3)
--- NOTE | 2016-08-11 08:07 | PN ---
DATE: 08/11/2016 SUBJECTIVE: The patient appears more comfortable this morning. He is not short of breath at rest. PHYSICAL EXAMINATION: VITAL SIGNS: Temperature is 98.7, pulse 91, respirations 20, blood pressure 118 /71. Oxygen saturation on BiPAP is 95%. HEENT: Normocephalic, atraumatic. No JVD. CARDIOVASCULAR: Systolic ejection murmur at the lower left sternal border. No S3 gallop. LUNGS: Crackles at both bases. Less rhonchi. Less wheezing. EXTREMITIES: No clubbing, cyanosis, or edema. Calves are nontender to palpation. GASTROINTESTINAL: Abdomen is soft, nontender, nondistended. Bowel sounds are positive. SKIN: No acute rash. NEUROLOGIC: Limited at the present time. IMPRESSION: 1. Bilateral pneumonia. 2. Acute bronchitis. 3. 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 4. Liver and bony metastasis. 5. Advanced chronic obstructive pulmonary disease. 6. Anemia. PLAN: The patient appears comfortable this morning. He is not short of breath at rest. He does state to feeling better overall. On physical exam, there is certainly less bronchospasm noted. I will continue with the current nebulizer treatments and current intravenous steroids(decreased yesterday) for now. I did discuss the case with the night nurse at length. The night nurse stated that the patient did have a good night. He spent a lot of the day on nasal cannula, and went on BiPAP at night. I would continue with the antibiotic coverage as per infectious disease. There are no temperatures noted. There remains a mild leukocytosis -- which may be partly due to the steroids. I will also continue with the aspiration precautions for now. Clinical status of the patient is certainly improved -- compared to the initial presentation. However , unfortunately, the overall status/prognosis for this patient does remain poor. I did discuss the case with Dr. Camacho at length yesterday. I will also discuss the case with him today. Abilio Woods MD cc: [phone] TT: 08/11/2016 08:07:09 Confirmation # [id number] Dictation # [id number] jocelyn HANCOCK
[2016-08-11] MEDS: Budesonide 0.5 mg/2 ml Inhal Susp UD IH SCH ×2 (08:20→20:08)
--- NOTE | 2016-08-11 08:50 | CP.PCM.CON ---
History of Present Illness - History of Present Illness History of Present Illness: Palliative consult requested by Dr Antonio Camacho Reason: Goals of care/hospice discussion 75 year old male with history of metastatic adenocarcinoma of lung who presented with weakness, shortness of breath and confusion over the past few days. CT of the chest showed multi-focal airspace disease of both lungs, suggestive of infection. There is a 1.5cm left lower lobe mass and additional small bilateral pulmonary nodules PMHx: adenocarcinoma of lung metastasized to liver, bone.He is s/p radiation and kyphoplasty to lower spine. He recently completed a three week course of Navelbine. COPD, emphysema, DM, gastritis,Porter's espophagitis, prostate cancer. Social History: Former smoker, no alcohol or drug use. lives with spouse. Worked in a chemical factory for many years. Family History: Non contributory. Advance Care Planning: The patient is not have an Advance Directive. Previous discussion with patient and spouse, all agreed to DNR/DNI. Review of Systems: As per HPI, low back pain epigastric tenderness, poor appetite. Past Patient History - Infectious Disease Hx of Infectious Diseases: None - Tetanus Immunizations Tetanus Immunization: Unknown - Past Social History Smoking Status: Former Smoker - CARDIAC Hx Cardiac Disorders: Yes Hx Cardia Arrhythmia: Yes (afib) Hx Hypertension: Yes - PULMONARY Hx Chronic Obstructive Pulmonary Disease (COPD): Yes - NEUROLOGICAL Hx Neurological Disorder: No - HEENT Hx HEENT Problems: Yes (wear glasses) Other/Comment: Porter's esophagus - RENAL Hx Chronic Kidney Disease: No Other/Comment: right kidney cyst removal - ENDOCRINE/METABOLIC Hx Diabetes Mellitus Type 2: Yes - HEMATOLOGICAL/ONCOLOGICAL Hx Cancer: Yes (lungs, mets to bone) - INTEGUMENTARY Hx Dermatological Problems: Yes Other/Comment: Stage II pressure ulcers to buttocks - MUSCULOSKELETAL/RHEUMATOLOGICAL Hx Musculoskeletal Disorders: Yes Hx Falls: No Other/Comment: T3 compression fx, kyphoplasty - GASTROINTESTINAL Hx Gastroesophageal Reflux: Yes (Barrets esophagus) - GENITOURINARY/GYNECOLOGICAL Hx Genitourinary Disorders: No - PSYCHIATRIC Hx Psychophysiologic Disorder: Yes Hx Depression: Yes Hx Substance Use: No - SURGICAL HISTORY Hx Surgeries: Yes Hx Appendectomy: Yes Hx Cholecystectomy: Yes Other/Comment: right kidney cyst removal, kyphoplasty - ANESTHESIA Hx Anesthesia Reactions: No Hx Malignant Hyperthermia: No Meds Allergies/Adverse Reactions: Allergies Allergy/AdvReac Type Severity Reaction Status Date / Time No Known Allergies Allergy Verified 06/08/16 14:44 - Medications Medications: Current Medications Budesonide (Pulmicort Respules) 0.5 mg IH [id number] [facility] Last Admin: 08/11/16 08:20 Dose: 0.5 mg Al Hydrox/Mg Hydrox/Simethicone 30 ml/Diphenhydramine HCl 75 mg/Lidocaine 30 ml 0 ml PO Q2H PRN PRN Reason: Mouth/Throat Pain Last Admin: 08/10/16 18:02 Dose: 30 ml Vancomycin HCl (Vancomycin 1gm) 1 gm in 250 mls @ 167 mls/hr IVPB Q12 ANDREA PRN Reason: Protocol Last Admin: 08/10/16 22:09 Dose: 167 mls/hr Sodium Chloride (Sodium Chloride 0.9%) 1,000 mls @ 100 mls/hr IV .Q10H ANDREA Last Admin: 08/11/16 06:55 Dose: 100 mls/hr Cefepime HCl (Maxipime 1gm) 1 gm in 100 mls @ 100 mls/hr IVPB Q8 ANDREA PRN Reason: Protocol Last Admin: 08/11/16 06:52 Dose: 100 mls/hr Doxycycline Hyclate 100 mg/ (Sodium Chloride) 100 mls @ 100 mls/hr IVPB Q12 ANDREA PRN Reason: Protocol Last Admin: 08/10/16 22:09 Dose: 100 mls/hr Insulin Human Regular (Humulin R Low) 0 units SC ACHS ANDREA PRN Reason: Protocol Last Admin: 08/10/16 22:07 Dose: 2 units Levalbuterol HCl (Xopenex) 0.63 mg IH [id number] [facility] Last Admin: 08/11/16 08:20 Dose: 0.63 mg Methylprednisolone (Solu-Medrol) 40 mg IVP Q12 ANDREA Last Admin: 08/10/16 22:08 Dose: 40 mg Metoprolol Succinate (Toprol Xl) 50 mg PO BID [facility] Last Admin: 08/10/16 17:48 Dose: 50 mg Morphine Sulfate (Morphine) 2 mg IVP Q4H PRN PRN Reason: Pain, severe (8-10) Last Admin: 08/10/16 05:09 Dose: 2 mg Verapamil HCl (Verapamil Inj) 2.5 mg IVP Q6H PRN PRN Reason: for heart rate >130 Physical Exam - Constitutional Appears: Cachectic, Chronically Ill - Head Exam Head Exam: NORMAL INSPECTION - Eye Exam Eye Exam: Normal appearance, PERRL - ENT Exam ENT Exam: Mucous Membranes Moist, Normal Oropharynx - Respiratory Exam Respiratory Exam: Decreased Breath Sounds, NORMAL BREATHING PATTERN - Cardiovascular Exam Cardiovascular Exam: REGULAR RHYTHM, +S1, +S2 - GI/Abdominal Exam GI & Abdominal Exam: Normal Bowel Sounds, Soft Additional comments: epigastric tenderness - Extremities Exam Extremities exam: Positive for: pedal pulses present Additional comments: bilateral lower extremity edema!+ - Back Exam Back exam: vertebral tenderness - Skin Skin Exam: Dry, Warm Additional comments: no rashes,sacral decubiti - Additional Findings Additional findings: Palliative performance scale rating 40 % Results - Vital Signs Recent Vital Signs: Last Vital Signs Temp 98.7 F 08/11/16 00:01 Pulse 94 H 08/11/16 08:22 Resp 20 08/11/16 00:01 BP 118/71 08/11/16 00:01 Pulse Ox 95 08/10/16 23:59 - Labs Result Diagrams: 08/11/16 06:30 08/11/16 06:30 Labs: Laboratory Results - last 24 hr 08/10/16 08/10/16 08/10/16 06:00 11:29 15:52 WBC RBC Hgb Hct MCV MCH MCHC RDW Plt Count MPV Gran % Lymph % (Auto) [place] % (Auto) Eos % (Auto) Baso % (Auto) Gran # Lymph # [place] # Eos # Baso # Sodium Potassium Chloride Carbon Dioxide Anion Gap BUN Creatinine Est GFR ( Amer) Est GFR (Non-Af Amer) POC Glucose (mg/dL) 386 H 387 H Random Glucose Calcium Total Bilirubin AST ALT Alkaline Phosphatase Total Protein Albumin Globulin Albumin/Globulin Ratio Procalcitonin 0.31 08/11/16 08/11/16 06:30 06:30 WBC 10.8 D RBC 3.32 L Hgb 9.7 L Hct 32.0 L MCV 96.4 MCH 29.2 MCHC 30.3 L RDW 18.4 H Plt Count 178 MPV 11.9 H Gran % 92.4 H Lymph % (Auto) 4.2 L [place] % (Auto) 3.0 Eos % (Auto) 0.0 L Baso % (Auto) 0.4 Gran # 10.00 H Lymph # 0.5 L [place] # 0.3 Eos # 0.0 Baso # 0.04 Sodium 139 Potassium 4.1 Chloride 110 H Carbon Dioxide 21 Anion Gap 12 BUN 21 Creatinine 0.8 Est GFR ( Amer) > 60 Est GFR (Non-Af Amer) > 60 POC Glucose (mg/dL) Random Glucose 286 H Calcium 7.5 L Total Bilirubin 0.7 AST 33 ALT 38 Alkaline Phosphatase 188 H Total Protein 5.8 Albumin 2.5 L Globulin 3.2 Albumin/Globulin Ratio 0.8 L Procalcitonin Assessment & Plan - Assessment and Plan (Free Text) Assessment: 75 year old male admitted with shortness of breath, weakness, confusion and decreased appetite.History of metastatic lung cancer, s/p radiation to lower spine, kyphoplasty to lumbar spine, chemotherapy. Patient is weak, primarily bed bound. He needs assistance with ADL's. He is confused at times. His appetite is poor. Patient states he is not in pain at this moment. Patient receiving Morphine 2 mg IV as needed for pain, last dose requested at 5 pm last night. Patient known to me from previous admission. During that meeting we established that patient would not want to be intubated or have aggressive resuscitation with CPR. POLST was explained in detail, all questions answered. The POLST was not completed at that time. I met with patients to discuss goals of care and end of life care planning. understands that patient is terminally ill and that his condition is deteriorating. Option for comfort care upon discharge being considered. Hospice services explained in detail. Questions answered. I offered to meet with her daughters to explain hospice option. Patient sister coming form [facility] this weekend. wants to wait until completion of antibiotic therapy before deciding on discharge plan. Psychosocial support given. Time spent in discussion with regarding goals of care, advance care planning and end of life counseling, 45 minutes Plan: Will assist family in establishing future goals of care - Date & Time Date: 08/11/16 Time: 09:00
[2016-08-11] MEDS: Insulin Reg-LOW-Coverage SC SCH ×4 (08:58→22:22)
[2016-08-11] MEDS: MethylPREDNISolone 40 mg Vial IVP SCH ×2 (09:25→22:27)
[2016-08-11] MEDS: Metoprolol Succinate 50 mg XL Tab PO SCH ×2 (09:26→18:23)
[2016-08-11] MEDS: Vancomycin 1gm in NS 250ml 1 GM/250 ML BAG IVPB SCH ×2 (09:26→22:27)
[2016-08-11] MEDS: Aluminum Hydroxide/Magnesium 30 ML, DiphenhydrAMINE 75 MG, Lidocaine 2% Viscous 30 ML PO PRN (10:30)
--- NOTE | 2016-08-11 10:51 | CP.PCM.PN ---
Subjective - Date & Time of Evaluation Date of Evaluation: 08/11/16 Time of Evaluation: 08:35 - Subjective Subjective: Patient is feeling a little better, no fevers overnight, less cough and SOB. Objective - Vital Signs/Intake and Output Vital Signs (last 24 hours): Temp Pulse Resp BP Pulse Ox 98.7 F 94 H 20 118/71 95 08/11/16 00:01 08/11/16 08:22 08/11/16 00:01 08/11/16 00:01 08/10/16 23:59 Intake and Output: 08/11/16 08/11/16 06:59 18:59 Intake Total 3090 Output Total 200 Balance 2890 - Medications Medications: Current Medications Budesonide (Pulmicort Respules) 0.5 mg IH [id number] ANDREA Last Admin: 08/11/16 08:20 Dose: 0.5 mg Al Hydrox/Mg Hydrox/Simethicone 30 ml/Diphenhydramine HCl 75 mg/Lidocaine 30 ml 0 ml PO Q2H PRN PRN Reason: Mouth/Throat Pain Last Admin: 08/10/16 18:02 Dose: 30 ml Vancomycin HCl (Vancomycin 1gm) 1 gm in 250 mls @ 167 mls/hr IVPB Q12 ANDREA PRN Reason: Protocol Last Admin: 08/10/16 22:09 Dose: 167 mls/hr Sodium Chloride (Sodium Chloride 0.9%) 1,000 mls @ 100 mls/hr IV .Q10H ANDREA Last Admin: 08/11/16 06:55 Dose: 100 mls/hr Cefepime HCl (Maxipime 1gm) 1 gm in 100 mls @ 100 mls/hr IVPB Q8 ANDREA PRN Reason: Protocol Last Admin: 08/11/16 06:52 Dose: 100 mls/hr Doxycycline Hyclate 100 mg/ (Sodium Chloride) 100 mls @ 100 mls/hr IVPB Q12 ANDREA PRN Reason: Protocol Last Admin: 08/10/16 22:09 Dose: 100 mls/hr Insulin Human Regular (Humulin R Low) 0 units SC ACHS ANDREA PRN Reason: Protocol Last Admin: 08/10/16 22:07 Dose: 2 units Levalbuterol HCl (Xopenex) 0.63 mg IH [id number] ANDREA Last Admin: 06/07/17 08:20 Dose: 0.63 mg Methylprednisolone (Solu-Medrol) 40 mg IVP Q12 [facility] Last Admin: 08/10/16 22:08 Dose: 40 mg Metoprolol Succinate (Toprol Xl) 50 mg PO BID [facility] Last Admin: 08/10/16 17:48 Dose: 50 mg Morphine Sulfate (Morphine) 2 mg IVP Q4H PRN PRN Reason: Pain, severe (8-10) Last Admin: 08/10/16 05:09 Dose: 2 mg Verapamil HCl (Verapamil Inj) 2.5 mg IVP Q6H PRN PRN Reason: for heart rate >130 - Labs Labs: 08/11/16 06:30 08/11/16 06:30 PT 13.8 Seconds (9.9-11.8) H 08/09/16 16:20 INR 1.28 (0.93-1.08) H 08/09/16 16:20 APTT 29.5 Seconds (23.7-30.8) 08/09/16 16:20 - Constitutional Appears: Non-toxic, No Acute Distress - Head Exam Head Exam: NORMAL INSPECTION - ENT Exam ENT Exam: Mucous Membranes Moist - Neck Exam Neck Exam: absent: Lymphadenopathy, Meningismus - Respiratory Exam Respiratory Exam: Decreased Breath Sounds Additional comments: right anterior chest wall port site clean and non-tender - Cardiovascular Exam Cardiovascular Exam: +S1, +S2 - GI/Abdominal Exam GI & Abdominal Exam: Soft. absent: Tenderness Assessment and Plan - Assessment and Plan (Free Text) Plan: Assessment systemic inflammatory response syndrome, consider sepsis due to bilateral healhtcare-associated pneumonia in a patient with probable acute bronchitis coagulase negative staph in one of 4 bottles, R/O contamination metastatic lung cancer (with mets to the thoracic spine) COPD S/P cyst removal from right kidney S/P appendectomy S/P cholecystectomy history of Porter's esophagus Prostate CA Plan continue Vancomycin and Cefepime day 2 pending repeat blood cx done today; reviewed CT chest discussed with Dr. Woods will continue to follow clinically
[2016-08-11] MEDS: Morphine 2 mg/ml ISec IVP PRN (12:22)
[2016-08-11] MEDS ORDERED: Morphine 2 mg/ml ISec IVP PRN (20:54)
[2016-08-11] MEDS ORDERED: Morphine 4 mg/ml ISec IVP PRN ×2 (20:56→20:59)
--- NOTE | 2016-08-11 21:11 | CON ---
DATE: 08/11/2016 This patient was seen and evaluated earlier today. This is a 75-year-old patient with a past medical history of metastatic adenocarcinoma, clinically of lung origin with metastases to the liver and to the bone. He had status post kyphoplasty and radiation. The patient is presently on chemotherapy. He was admitted from home for weakness and progressive increasing shortness of breath. The patient i s on chronic pain medication at home and the patient has been on Movantik at home for narcotic-induce d constipation. The patient is now admitted with no bowel movements and constipated for more than 3 days. A GI consultation was requested to evaluate this. Other past medical history is significant for gastroesophageal reflux disease and Porter's esophagus . The patient has a history oropharyngeal candidiasis on his last admission, improved with p.o. nyst atin. The patient is on Xgeva, inhibitor as an outpatient for metastatic disease. The patient 's other past medical history is significant for open cholecystectomy for CBD exploration many years ago, history of appendectomy, spontaneous pneumothorax, history of and a thoracoscopy in the [facility]. SOCIAL HISTORY: The patient has a history of smoking, but quit about 20 years ago. The patient used to smoke a pack per day but cut down and is presently smoking only 1-2 cigarettes per day. REVIEW OF SYSTEMS: Positive as above. Other systems reviewed. PHYSICAL EXAMINATION: GENERAL: The patient is lying on the bed, not in acute distress. VITAL SIGNS: Pulse 82 per minute, blood pressure is 118/71, respirations 18, . HEENT: Atraumatic, anicteric. NECK: Supple. HEART: S1, S2 heard. There was a soft systolic murmur present. LUNGS: Bilateral air entry present. Small crackles at the base with a few scattered rhonchi present . EXTREMITIES: No cyanosis, no clubbing, no edema. ABDOMEN: Soft. There is no tenderness. LABORATORY DATA: Hemoglobin 9.7, hematocrit 32 and WBC is 10.8, platelets 178. Chemistries: Alkali ne phosphatase is 188. IMPRESSION: This is a 75-year-old patient with: 1. Metastatic adenocarcinoma, clinically more suggestive of lung primary with metastases. Now admit tara with pneumonia, bilateral, and in addition the patient also has a history of chronic constipation , at home on Movantik, did not take it for the last 2 days. Presently has been ordered Relistor by vernell kirby oncologist. Will hold off Movantik at the present time, probably we can restart it tomorrow from home medications. 2. Continue the pulmonary follow up for bilateral pneumonia and also ID followup. Oncological evalu ation noticed. The patient has esophageal candidiasis, clinically. Since the patient is on steroids and also antibiotics likely has a recurrence of. We may have to restart the patient on nystat in. Will continue to followup. At the present time he denies any symptoms. Thank you very much for allowing me to participate in the care of the patient. Leyda Aviles MD cc: [id number] TT: 08/11/2016 21:10:33 Confirmation # [id number] Dictation # [id number] dn
--- NOTE | 2016-08-11 21:18 | PN ---
DATE: 08/11/[address] Camacho. SUBJECTIVE: The patient is a 75-year-old male seen lying awake with BiPAP on, known to have a histor y of metastatic adenocarcinoma of the lung origin with disease to the liver and bone, with intractabl e pain in the right mid lower back, status post kyphoplasty with external radiation with the patient now was treated with Navelbine. However, he is now for worsening shortness of breath, weakness and c onfusion with pneumonia and hypoxemia noted. He is resting at this point, but reports his pain is st ill significant in the right lateral abdomen and back area despite analgesics. PHYSICAL EXAMINATION: VITAL SIGNS: Temperature 98.4, pulse 100, respirations 20, blood pressure 104/77 with a pulse ox of 95% on BiPAP. HEENT: BiPAP is on with fullness of his face noted. NECK: Supple. HEART: Tachy rate, regular rhythm. LUNGS: Decreased breath sounds. Occasional rhonchi. ABDOMEN: Obese, soft, and nontender. EXTREMITIES: No edema. SKIN: Sacral decubiti reported. NEUROLOGIC: Awake, alert. LABORATORY DATA: The patient's labs were done. White blood cell count 10.8, hemoglobin 9.7, hematoc rit 30.0, platelet count of 178,000 with a chem metabolic panel showing a nonfasting glucose of 404, albumin 2.5. ASSESSMENT: Systemic inflammatory response syndrome, pneumonia, sepsis?, positive blood cultures 1 o f 4, severe chronic obstructive pulmonary disease, metastatic cancer of the lung, history of prostat e cancer, history of Porter's esophagus, metastases to liver and bone, intractable pain of cancer, s tatus post kyphoplasty, hypoxemia. PLAN: After conversation with Dr. Camacho, is to continue present medical regimen as per data virtualization consultant' s recommendations with antibiotics and analgesics for his pain with the patient now DNR/DNI with cons ideration for hospice as per Megan Archer APN, with possible decision to be made after the cathie matt's sister visits from [place] this weekend. We will monitor clinically and with labs. Prognosis for this patient is unfortunately poor. We will also adjust his analgesics for his pain. Bandar Bond MD cc: [id number] TT: 08/11/2016 21:17:43 Confirmation # [id number] Dictation # [id number] mn
[2016-08-11] MEDS: oxyCODONE 10 mg ER Tab (oxyCONTIN) PO SCH (22:25)
[2016-08-11] MEDS: POLYETHYLENE GLYCOL 3350 17 GM/Dose PACKET PO SCH (22:25)
[2016-08-12] MEDS: Levalbuterol 0.63 MG/3 ML Inhal Soln UD IH SCH ×4 (03:55→20:12)
[2016-08-12] MEDS: Sodium Chloride 0.9% 1,000 ML IV SCH ×3 (04:30→15:59)
[2016-08-12] MEDS: Cefepime 1gm in NS 100ml 1 GM/100 ML BAG IVPB SCH ×2 (05:40→13:53)
--- NOTE | 2016-08-12 07:38 | PN ---
DATE: 08/12/2016 SUBJECTIVE: The patient appears comfortable this morning. He is not short of breath at rest. PHYSICAL EXAMINATION: VITAL SIGNS: Temperature is 98.1, pulse 82, respirations 18, blood pressure 123 /83. Oxygen saturation on BiPAP is 92%-95%. HEENT: Normocephalic, atraumatic. No JVD. CARDIOVASCULAR: Systolic ejection murmur at the lower left sternal border. No S3 gallop. LUNGS: Crackles at both bases. Minimal bilateral rhonchi. No wheezing this morning. EXTREMITIES: No clubbing, cyanosis, or edema. Calves are nontender to palpation. GASTROINTESTINAL: Abdomen is soft, nontender, nondistended. Bowel sounds are positive. SKIN: No acute rash. NEUROLOGIC: Limited at the present time. IMPRESSION: 1. Bilateral pneumonia. 2. Acute bronchitis. 3. 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 4. Liver and bony metastasis. 5. Advanced chronic obstructive pulmonary disease. 6. Anemia. PLAN: The patient appears comfortable this morning. He is not short of breath at rest. He does state to feeling better overall. On physical exam, there is certainly less bronchospasm noted. However, there remains a significant alveolar-arterial gradient. I did discuss the case with the night nurse at length. The night nurse does confirm that the patient does desaturate when off the BiPAP. I will discuss this issue with respiratory this morning. Hopefully , we can change to high flow oxygen delivery during the day and proceed with BiPAP at night. This certainly would be more comfortable for the patient. The patient remains on antibiotic therapy -- as per infectious disease. There are no temperatures noted. The leukocytosis has now completely resolved. Input by Megan Archer (palliative care) is also noted. The patient is somewhat improved clinically -- compared to the initial presentation. However, again, the overall status/prognosis for this patient remains very poor. I will discuss the above with the attending physician. Abilio Woods MD cc: [id number] TT: 08/12/2016 07:37:14 Confirmation # [id number] Dictation # [id number] MTDD
--- NOTE | 2016-08-12 07:42 | PN ---
DATE: 08/11/2016 REASON FOR CONSULTATION: Sinus tachycardia, cardiac evaluation. The patient denies any chest pain, shortness of breath or any palpitations. PHYSICAL EXAMINATION: VITAL SIGNS: Temperature afebrile, heart rate 91, blood pressure 131/81. HEENT: PERRLA. Extraocular muscles intact. NECK: Supple. No carotid bruits. No thyromegaly. CHEST: Clear to auscultation. HEART: S1, S2 regular. ABDOMEN: Soft. EXTREMITIES: Clubbing and cyanosis negative. LABORATORY DATA: Blood workup as follows: WBC , hemoglobin , hematocrit 32.0, platelet co unt 178. Chemistry shows sodium 130, potassium , chloride , carbon dioxide 21, anion gap o f 12, BUN 21, creatinine 0.8. IMPRESSION: Protein calorie malnutrition was present on admission, lung cancer with metastasis. Had a negative stress test in November. CAT scan of the chest metastases. No evidence of acute pulmonary embolism. Shortness of breath, tachycardia, multifactorial secondary to anemia and underly ing disease and sinus tachycardia as mentioned, is multifactorial. RECOMMENDATION: The patient started on low dose beta nohemi and . The patient's heart rate an d blood pressure is stable. Continue current treatment. Continue supportive care. Will put him on verapamil 2.5 mg p.r.n. and continue metoprolol b.i.d. Will follow with you. Thank you, for providing me the opportunity in taking care of the patient. I will disconti nue telemetry. Mayi Montague MD cc: [id number] TT: 08/11/2016 18:05:28 Confirmation # [id number] Dictation # [id number] dn 08/11/2016 18:42:11
[2016-08-12 08:02] LABS: ADD MANUAL DIFF? NO
[2016-08-12 08:12] LABS: BASO # 0.02 K/mm3 (0.0-2.0); BASO % 0.2 % (0.0-3.0); GRAN # 10.84 (1.4-6.5); GRAN % 91.8 % (50.0-68.0); HEMATOCRIT 28.1 % (42.0-52.0); LYMPH # 0.5 (1.2-3.4); LYMPH % 4.2 % (22.0-35.0); MEAN CELL VOLUME 95.3 fL (80.0-105.0); MEAN CORPUSCULAR HEMOGLOBIN 29.2 pg (25.0-35.0); MEAN CORPUSCULAR HGB CONC 30.6 g/dl (31.0-37.0); MONO # 0.5 (0.1-0.6); MONO % 3.8 % (1.0-6.0); PLATELET COUNT 197 10^3/uL (120.0-450.0); RED CELL DISTRIBUTION WIDTH 18.2 % (11.5-14.5); WHITE BLOOD COUNT 11.8 10^3/ul (4.5-11.0)
[2016-08-12 08:21] LABS: ALB/GLOB RATIO 0.8 (1.1-1.8); ALKALINE PHOSPHATASE 172 U/L (38-133); ALT/SGPT 40 U/L (7-56); AST/SGOT 35 U/L (15-59); BILIRUBIN,TOTAL 0.6 mg/dL (0.2-1.3); BLOOD UREA NITROGEN 15 mg/dL (7-21); CARBON DIOXIDE 23 mmol/L (21-33); CHLORIDE 114 mmol/L (98-107); GFR AFRICAN-AMERICAN > 60; GLUCOSE,RANDOM 274 mg/dL (70-110); POTASSIUM 3.8 mmol/L (3.6-5.0); SODIUM 141 mmol/L (132-148); TOTAL PROTEIN 4.9 g/dL (5.8-8.3)
[2016-08-12] MEDS: Budesonide 0.5 mg/2 ml Inhal Susp UD IH SCH ×2 (08:21→20:12)
[2016-08-12] MEDS: Insulin Reg-LOW-Coverage SC SCH ×4 (08:33→22:23)
[2016-08-12] MEDS: POLYETHYLENE GLYCOL 3350 17 GM/Dose PACKET PO SCH (09:24)
[2016-08-12] MEDS: MethylPREDNISolone 40 mg Vial IVP SCH ×2 (09:24→22:29)
[2016-08-12] MEDS: oxyCODONE 10 mg ER Tab (oxyCONTIN) PO SCH ×2 (09:24→22:29)
[2016-08-12] MEDS: Metoprolol Succinate 50 mg XL Tab PO SCH ×2 (09:24→17:12)
[2016-08-12] MEDS: Vancomycin 1gm in NS 250ml 1 GM/250 ML BAG IVPB SCH (09:25)
--- NOTE | 2016-08-12 12:09 | CP.PCM.PN ---
Subjective - Date & Time of Evaluation Date of Evaluation: 08/12/16 Time of Evaluation: 10:00 - Subjective Subjective: Alert, less confused today. Denies pain. Appetite fair. Objective - Vital Signs/Intake and Output Vital Signs (last 24 hours): Temp Pulse Resp BP Pulse Ox 98.2 F 84 18 135/87 95 08/12/16 08:51 08/12/16 09:24 08/12/16 08:51 08/12/16 09:24 08/12/16 08:51 - Medications Medications: Current Medications Budesonide (Pulmicort Respules) 0.5 mg IH [id number] [facility] Last Admin: 08/12/16 08:21 Dose: 0.5 mg Al Hydrox/Mg Hydrox/Simethicone 30 ml/Diphenhydramine HCl 75 mg/Lidocaine 30 ml 0 ml PO Q2H PRN PRN Reason: Mouth/Throat Pain Last Admin: 08/11/16 10:30 Dose: 30 ml Home Med (Home Med) 1 unit PO DAILY [facility] Vancomycin HCl (Vancomycin 1gm) 1 gm in 250 mls @ 167 mls/hr IVPB Q12 [facility] PRN Reason: Protocol Last Admin: 08/12/16 09:25 Dose: 167 mls/hr Sodium Chloride (Sodium Chloride 0.9%) 1,000 mls @ 100 mls/hr IV .Q10H [facility] Last Admin: 08/12/16 04:30 Dose: 100 mls/hr Cefepime HCl (Maxipime 1gm) 1 gm in 100 mls @ 100 mls/hr IVPB Q8 [facility] PRN Reason: Protocol Last Admin: 08/12/16 05:40 Dose: 100 mls/hr Doxycycline Hyclate 100 mg/ (Sodium Chloride) 100 mls @ 100 mls/hr IVPB Q12 [facility] PRN Reason: Protocol Last Admin: 08/12/16 10:40 Dose: 100 mls/hr Insulin Human Regular (Humulin R Low) 0 units SC ACHS [facility] PRN Reason: Protocol Last Admin: 08/12/16 08:33 Dose: 4 units Levalbuterol HCl (Xopenex) 0.63 mg IH [id number] [facility] Last Admin: 08/12/16 08:21 Dose: 0.63 mg Methylprednisolone (Solu-Medrol) 40 mg IVP Q12 [facility] Last Admin: 08/12/16 09:24 Dose: 40 mg Metoprolol Succinate (Toprol Xl) 50 mg PO BID [facility] Last Admin: 08/12/16 09:24 Dose: 50 mg Morphine Sulfate (Morphine) 2 mg IVP Q4H PRN PRN Reason: Pain, severe (8-10) Oxycodone HCl (Oxycontin Extended Release Tab) 10 mg PO Q12 [facility] Stop: 08/14/16 22:01 Last Admin: 08/12/16 09:24 Dose: 10 mg Polyethylene Glycol (Miralax) 17 gm PO DAILY [facility] Last Admin: 08/12/16 09:24 Dose: 17 gm Verapamil HCl (Verapamil Inj) 2.5 mg IVP Q6H PRN PRN Reason: for heart rate >130 - Labs Labs: 08/12/16 05:00 08/12/16 05:00 PT 13.8 Seconds (9.9-11.8) H 08/09/16 16:20 INR 1.28 (0.93-1.08) H 08/09/16 16:20 APTT 29.5 Seconds (23.7-30.8) 08/09/16 16:20 - Constitutional Appears: Chronically Ill - Head Exam Head Exam: NORMAL INSPECTION - Eye Exam Eye Exam: Normal appearance, PERRL - ENT Exam ENT Exam: Mucous Membranes Moist, Normal Oropharynx - Respiratory Exam Respiratory Exam: Decreased Breath Sounds, NORMAL BREATHING PATTERN - Cardiovascular Exam Cardiovascular Exam: REGULAR RHYTHM, +S1, +S2 - GI/Abdominal Exam GI & Abdominal Exam: Soft, Normal Bowel Sounds - Skin Skin Exam: Dry, Pallor Additional comments: sacral decubiti Assessment and Plan - Assessment and Plan (Free Text) Assessment: 75 year old male admitted with shortness of breath, weakness. History of metastatic lung cancer. The patient is alert, less confused today. He is still weak, unable to perform ADL's. Primarily bed bed bound. No distress . BIPAP needed PRN. Pain controlled. and I had another detailed discussion about hospice services. expressed some concerns about end of life care. Questions and concerns addressed. Psychosocial support given. willing to meet with [facility] board certified music therapist in order to discuss transition home with services. Case management aware of 's request to meet with board certified music therapist. Time spent with in end of life preparation/counseling,40 minutes Plan: Hospice referral
--- NOTE | 2016-08-12 13:08 | PN ---
DATE: 08/12/2016 Seen and examined at the bedside earlier this morning. The patient was given Relistor yesterday, but has still not had a bowel movement. No reports of acute overnight events. The is at the [facility]. The patient is currently on high flow oxygen. VITAL SIGNS: Temperature 98.2, blood pressure 135/87, pulse rate 84, respirations 18, 95% on O2. LABORATORIES: WBC is 11.8, H and H is 8.6 and 28.1, platelets of 197. Sodium 141, K 3.8, BUN 15, cr eatinine 0.6. His total bilirubin is 0.6, AST 35, ALT 40, alk phos is 142. PHYSICAL EXAMINATION: HEENT: Sclera is anicteric. NECK: Supple. CARDIAC: S1, S2. LUNG SOUNDS: With positive for crackles at the bases. No wheezing. ABDOMEN: With bowel sounds, soft, not distended. No tenderness on palpation. EXTREMITIES: No edema. NEUROLOGIC: The patient is awake, alert. 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 PLAN: Spoke to the at the bedside. The patient can start on his home Movantik. IV antibiotics as per ID. The patient is on Solu-Medrol, IV fluids, morphine for pain and is currently on a full l iquid diet. The patient was seen and case discussed with Dr. Aviles. Soraida CUMMINS cc: [id number] TT: 08/12/2016 13:07:30 Confirmation # [id number] Dictation # [id number] en
[2016-08-12] MEDS ORDERED: Potassium Chloride 20 mEq ER Tab PO ONE (15:55)
--- NOTE | 2016-08-12 16:51 | PN ---
DATE: 08/12/2016 REASON FOR CONSULTATION: Sinus tachycardia, cardiac evaluation. The patient denies any chest pain, shortness of breath, any palpitation. Lying flat. PHYSICAL EXAMINATION: As follows: VITAL SIGNS: Temperature afebrile, heart rate 84, blood pressure 135/87. HEENT: PERRLA, intact. NECK: Supple. No carotid bruits. No thyromegaly. CHEST: Clear to auscultation. HEART: S1, S2 regular. ABDOMEN: Soft. EXTREMITIES: Clubbing and cyanosis negative. BLOOD WORKUP: As follows: WBC is ____, hemoglobin ____, hematocrit 28.1, platelet count 197. Chemi stry shows sodium 141, potassium ____, chloride 104, carbon dioxide 23, anion gap of 8, BUN 15, creat inine 0.6. Total protein 4.9, albumin 2.2, albumin/globulin ratio 0.8. IMPRESSION: Protein calorie malnutrition, uncontrolled diabetes, blood sugar is 400; protein calorie malnutrition, lung cancer with metastasis. Had a stress test in November that was negative. Had a chest scan, CT chest shows metastasis. ____ evidence of acute pulmonary embolism. Shortness of ___ _ is multifactorial secondary to anemia and underlying disease. is at the bedside. Concerned a bout swelling of the leg. The patient started low-dose beta nohemi. Heart rate and blood pressure is stable. We will put verapamil 2.5 p.r.n. Continue metoprolol. No further episode of tachycardia noted. We will put low dose of diuretics as blood pressure is tolerated. Continue noninvasive vent ilator. We will cut down the patient's IV Lasix 100 mL an hour. We will cut down to 40 mL an hour a nd we will give gentle diuretics as well. Mayi Montague MD cc: [phone] TT: 08/12/2016 16:50:14 Confirmation # [id number] Dictation # [id number] sn
[2016-08-12] MEDS ORDERED: Potassium Chloride 40 mEq/30 ml LIQ UD PO ONE (17:08)
--- NOTE | 2016-08-12 20:14 | PN ---
DATE: 08/12/2016 HISTORY OF PRESENT ILLNESS: The patient is in bed in no acute distress, nontoxic. PHYSICAL EXAMINATION: VITAL SIGNS: Temperature is 97, blood pressure is 119/70, respiratory rate of 18. HEENT: Unremarkable. NECK: Supple. LUNGS: Have decreased breath sounds. HEART: Normal S1, S2. ABDOMEN: Soft. LABORATORY DATA: Reveals a white count of 11,800, hemoglobin of 8. BUN of 15, creatinine of 0.6. U rinalysis is noted. Microbiology reveals the blood culture with gram-positive cocci in 1 bottle. Re peat ones are negative. There is coag-negative staph by 1 bottle. Review of the orders reveals the patient to be on doxycycline and cefepime and Solu-Medrol. ASSESSMENT AND PLAN: This is a 75-year-old male with systemic inflammatory response syndrome and sep sis with bilateral healthcare associated pneumonia and acute bronchitis with a coag-negative staph in 1 bottle with metastatic lung cancer with mets to the thoracic spine and currently on day #3 of cefe pime and doxycycline. Case discussed with Dr. Woods, who feels the patient has improved pulmonary herrera, at least for now. Toño Griffin MD cc: [phone] TT: 08/12/2016 20:13:53 Confirmation # [id number] Dictation # [id number] ln
--- NOTE | 2016-08-12 21:40 | PN ---
DATE: 08/12/[address] Camacho. SUBJECTIVE: The patient is a 75-year-old male seen now lying awake in bed, BiPAP on, feeling markedl y improved after his OxyContin was restarted as this was held earlier in his admission due to patient 's lethargic presentation. However, he is now much more comfortable with his right lower back pain i mproved. He is known to suffer from metastatic cancer of the lung, history of prostate cancer, with present treatment for pneumonia. OBJECTIVE: VITAL SIGNS: Temperature 97.7, pulse 95, respirations 19, blood pressure 119/76, pulse ox is 94%. HEENT: Unremarkable. Oxygen is on. NECK: Supple. HEART: Regular rate. LUNGS: Occasional rhonchi. ABDOMEN: Soft, nontender. EXTREMITIES: No edema. SKIN: Warm, dry and clear. NEUROLOGIC: Awake, alert and oriented. LABORATORY DATA: The patient's labs were done. White blood cell count 11.8, hemoglobin 8.6 down fro m 9.7 yesterday, hematocrit 28.1, platelet count 197,000. A chem metabolic panel within normal limit s with a nonfasting glucose of 325, alkaline phosphatase 172. ASSESSMENT: Systemic inflammatory response syndrome with sepsis, pneumonia, intractable pain of canc er, history of kyphoplasty, hypoxemia, history of prostate cancer, Porter's esophagus history, metas tases to the liver and bone. PLAN: After conversation with Dr. Camacho, we will continue present medical regimen for this patient with analgesics adjusted with consideration for hospice. For his anemic indices, we will monitor cl inically with consideration for transfusion should it be indicated. He continues to be DNR/DNI. Pro gnosis for this patient, unfortunately, is poor. Bandar Bond MD cc: [phone] TT: 08/12/2016 21:39:09 Confirmation # [id number] Dictation # [id number] oj
[2016-08-13] MEDS: Cefepime 1gm in NS 100ml 1 GM/100 ML BAG IVPB SCH ×4 (00:46→21:08)
[2016-08-13] MEDS: Vancomycin 1gm in NS 250ml 1 GM/250 ML BAG IVPB SCH (00:47)
--- NOTE | 2016-08-13 01:13 | PN ---
DATE: 08/12/2016 ADDENDUM This is an addendum to the GI progress report dictated by Soraida Jackson APN. The patient was seen and evaluated today, discussed with the patient's who was also at bedside. His abdomen was soft. There is no tenderness. The patient did receive Relistor but did not have an y bowel movements at the time of the examination. The patient was advised to restart on Movantik, wh ich she was taking at home. Thank you very much for allowing us to participate in the care of the patient. Leyda Aviles MD cc: [phone] TT: 08/13/2016 01:12:22 Confirmation # [id number] Dictation # [id number] tn
[2016-08-13] MEDS: Levalbuterol 0.63 MG/3 ML Inhal Soln UD IH SCH ×4 (02:23→20:17)
[2016-08-13 07:52] LABS: ADD MANUAL DIFF? NO
[2016-08-13 07:59] LABS: BASO # 0.02 K/mm3 (0.0-2.0); BASO % 0.2 % (0.0-3.0); GRAN # 10.75 (1.4-6.5); GRAN % 92.4 % (50.0-68.0); HEMATOCRIT 28.7 % (42.0-52.0); LYMPH # 0.4 (1.2-3.4); LYMPH % 3.5 % (22.0-35.0); MEAN CELL VOLUME 95.3 fL (80.0-105.0); MEAN CORPUSCULAR HEMOGLOBIN 29.2 pg (25.0-35.0); MEAN CORPUSCULAR HGB CONC 30.7 g/dl (31.0-37.0); MEAN PLATELET VOLUME 11.1 fl (7.0-11.0); MONO # 0.5 (0.1-0.6); MONO % 3.9 % (1.0-6.0); PLATELET COUNT 192 10^3/uL (120.0-450.0); RED CELL DISTRIBUTION WIDTH 18.6 % (11.5-14.5); WHITE BLOOD COUNT 11.6 10^3/ul (4.5-11.0)
[2016-08-13] MEDS: Budesonide 0.5 mg/2 ml Inhal Susp UD IH SCH ×2 (08:02→20:16)
[2016-08-13 08:06] LABS: BLOOD UREA NITROGEN 13 mg/dL (7-21); CARBON DIOXIDE 23 mmol/L (21-33); CHLORIDE 112 mmol/L (98-107); GFR AFRICAN-AMERICAN > 60; GLUCOSE,RANDOM 283 mg/dL (70-110); POTASSIUM 3.8 mmol/L (3.6-5.0); SODIUM 139 mmol/L (132-148)
[2016-08-13] MEDS: Insulin Reg-LOW-Coverage SC SCH ×4 (08:17→22:22)
[2016-08-13 08:18] LABS: CALCIUM 6.9 mg/dL (8.4-10.5)
--- NOTE | 2016-08-13 09:07 | PN ---
DATE: 08/13/2016 SUBJECTIVE: The patient appears more comfortable at rest. He is not short of breath. PHYSICAL EXAMINATION: VITAL SIGNS: Temperature is 98.1, pulse 82, respirations 18, blood pressure 123 /83. Oxygen saturation on BiPAP is 93-95%. HEENT: Normocephalic, atraumatic. No JVD. CARDIOVASCULAR: Systolic ejection murmur at the lower left sternal border. No S3 gallop. LUNGS: Crackles at both bases. Less rhonchi. No wheezing. EXTREMITIES: No clubbing, cyanosis, or edema. Calves are nontender to palpation. GASTROINTESTINAL: Abdomen is soft, nontender, nondistended. Bowel sounds are positive. SKIN: No acute rash. NEUROLOGIC: Limited at the present time. IMPRESSION: 1. Bilateral pneumonia. 2. Acute bronchitis. 3. Advanced metastatic adenocarcinoma - probable lung region. 4. Liver and bony metastasis. 5. Advanced chronic obstructive pulmonary disease. 6. Anemia. PLAN: The patient appears more comfortable this morning. He is not short of breath at rest. He is awake and alert. He does state to feeling better overall. On physical exam, there is certainly less bronchospasm noted. I will continue with the current nebulizer treatments and decrease the intravenous steroids this morning. The patient remains with a large alveolar arterial gradient. I did discuss the case with the respiratory this morning. We will try high flow oxygen during the day, and proceed with BiPAP at night. The patient remains on antibiotic therapy - as per infectious disease. There are no temperatures noted. The leukocytosis is significantly reduced. Input by Dr. Griffin is noted. Repeat a.m. labs are pending. The clinical status of this patient is certainly improved - compared to the initial presentation. However, again, the patient remains critically ill with very poor overall prognosis. All are aware. Input by Megan Archer (palliative care) is noted. I will discuss the above with the attending physician. Abilio Woods MD cc: [phone] TT: 08/13/2016 09:06:37 Confirmation # [id number] Dictation # [id number] delaney HANCOCK
[2016-08-13] MEDS: MOVANTIK 12.5 MG PO SCH (10:11)
[2016-08-13] MEDS: MethylPREDNISolone 40 mg Vial IVP SCH ×2 (10:11→21:07)
[2016-08-13] MEDS: oxyCODONE 10 mg ER Tab (oxyCONTIN) PO SCH ×2 (10:12→21:07)
[2016-08-13] MEDS: Metoprolol Succinate 50 mg XL Tab PO SCH ×2 (10:12→18:27)
[2016-08-13] MEDS: POLYETHYLENE GLYCOL 3350 17 GM/Dose PACKET PO SCH ×3 (10:14→18:27)
--- NOTE | 2016-08-13 10:42 | PN ---
DATE: 08/13/2016 Seen and examined at the bedside this morning. The patient is on high flow oxygen and was trying to eat breakfast. No distress, but he reports that he has not had any bowel movement, no urge to have o ne. Denies abdominal pain. No acute overnight events reported. VITAL SIGNS: Temperature is 98, blood pressure is 107/77, pulse is 84, respirations 16, 93 O2 satura tion. LABORATORY DATA: WBC is 11.6, H and H are 8.8 and 28.7, platelets are 192. Sodium 139, K 3.8, BUN i s 13, creatinine 0.6. PHYSICAL EXAMINATION: HEENT: Sclerae are anicteric. NECK: Supple. CARDIAC: S1, S2. LUNGS: With decreased breath sounds. Positive rhonchi and rales. No wheezing. ABDOMEN: With bowel sounds. Soft, not distended. No rebound or guarding. ASSESSMENT: This is a 75-year-old male with a past medical history of advanced metastatic adenocarci noma of the liver and bone. He also has history of chronic obstructive pulmonary disease, has bilate ral pneumonia, and chronic constipation likely secondary to narcotic. He is also with anemia. PLAN: The patient did have a dose of Relistor the other day, but did not have a bowel movement. We spoke to the yesterday, and he is supposed to start on his home med, Movantik. I spoke to the [facility] staff and he should be starting the dose today; he did not get any yesterday. He is on MiraLax as well. Continue the full liquid diet. He is on Solu-Medrol and IV fluids. Will continue to foll ow closely. If he does not move his bowels, may have to consider giving another dose of Relistor. T he patient was seen and case discussed with Dr. Aviles. Soraida CUMMINS cc: [phone] TT: 08/13/2016 10:41:33 Confirmation # [id number] Dictation # [id number] delaney
--- NOTE | 2016-08-13 12:27 | CP.PCM.PN ---
Subjective - Date & Time of Evaluation Date of Evaluation: 08/13/16 Time of Evaluation: 09:50 - Subjective Subjective: Comfortable, not in distress, breathing better, no fevers overnight. Objective - Vital Signs/Intake and Output Vital Signs (last 24 hours): Temp Pulse Resp BP Pulse Ox 97.7 F 90 20 119/76 94 L 08/12/16 16:00 08/13/16 02:42 08/13/16 08:00 08/12/16 17:12 08/12/16 16:00 Intake and Output: 08/13/16 08/13/16 06:59 18:59 Intake Total 240 Output Total 950 Balance -710 - Medications Medications: Current Medications Budesonide (Pulmicort Respules) 0.5 mg IH [id number] [facility] Last Admin: 08/13/16 08:02 Dose: 0.5 mg Al Hydrox/Mg Hydrox/Simethicone 30 ml/Diphenhydramine HCl 75 mg/Lidocaine 30 ml 0 ml PO Q2H PRN PRN Reason: Mouth/Throat Pain Last Admin: 08/11/16 10:30 Dose: 30 ml Home Med (Home Med) 1 unit PO DAILY [facility] Vancomycin HCl (Vancomycin 1gm) 1 gm in 250 mls @ 167 mls/hr IVPB Q12 [facility] PRN Reason: Protocol Last Admin: 08/13/16 00:47 Dose: 167 mls/hr Cefepime HCl (Maxipime 1gm) 1 gm in 100 mls @ 100 mls/hr IVPB Q8 [facility] PRN Reason: Protocol Last Admin: 08/13/16 06:00 Dose: 100 mls/hr Doxycycline Hyclate 100 mg/ (Sodium Chloride) 100 mls @ 100 mls/hr IVPB Q12 [facility] PRN Reason: Protocol Last Admin: 08/12/16 22:24 Dose: 100 mls/hr Sodium Chloride (Sodium Chloride 0.9%) 1,000 mls @ 50 mls/hr IV .Q20H [facility] Last Admin: 08/12/16 15:59 Dose: 50 mls/hr Insulin Human Regular (Humulin R Low) 0 units SC ACHS [facility] PRN Reason: Protocol Last Admin: 08/13/16 08:17 Dose: 1 units Levalbuterol HCl (Xopenex) 0.63 mg IH [id number] [facility] Last Admin: 08/13/16 08:02 Dose: 0.63 mg Methylprednisolone (Solu-Medrol) 30 mg IVP Q12 [facility] Metoprolol Succinate (Toprol Xl) 50 mg PO BID [facility] Last Admin: 08/12/16 17:12 Dose: Not Given Morphine Sulfate (Morphine) 2 mg IVP Q4H PRN PRN Reason: Pain, severe (8-10) Oxycodone HCl (Oxycontin Extended Release Tab) 10 mg PO Q12 [facility] Stop: 08/14/16 22:01 Last Admin: 08/12/16 22:29 Dose: 10 mg Pantoprazole Sodium (Protonix Inj) 40 mg IVP DAILY [facility] Last Admin: 08/12/16 12:45 Dose: 40 mg Polyethylene Glycol (Miralax) 17 gm PO DAILY [facility] Last Admin: 08/12/16 09:24 Dose: 17 gm Verapamil HCl (Verapamil Inj) 2.5 mg IVP Q6H PRN PRN Reason: for heart rate >130 - Labs Labs: 08/13/16 07:00 08/13/16 07:00 PT 13.8 Seconds (9.9-11.8) H 08/09/16 16:20 INR 1.28 (0.93-1.08) H 08/09/16 16:20 APTT 29.5 Seconds (23.7-30.8) 08/09/16 16:20 - Constitutional Appears: Non-toxic, No Acute Distress - Head Exam Head Exam: NORMAL INSPECTION - Neck Exam Neck Exam: absent: Meningismus - Respiratory Exam Respiratory Exam: Decreased Breath Sounds Additional comments: right anterior chest wall port site non-tender - Cardiovascular Exam Cardiovascular Exam: +S1, +S2 - GI/Abdominal Exam GI & Abdominal Exam: Soft. absent: Tenderness Assessment and Plan - Assessment and Plan (Free Text) Plan: Assessment systemic inflammatory response syndrome, consider sepsis due to bilateral healhtcare-associated pneumonia in a patient with probable acute bronchitis coagulase negative staph in one of 4 bottles, R/O contamination metastatic lung cancer (with mets to the thoracic spine) COPD S/P cyst removal from right kidney S/P appendectomy S/P cholecystectomy history of Porter's esophagus Prostate CA Plan continue Vancomycin and Cefepime day 4 pending repeat blood cx done today; reviewed CT chest; recommend to complete 4-7 days of therapy discussed with Dr. Woods will continue to follow clinically
[2016-08-13] MEDS ORDERED: DiphenhydrAMINE 50 mg/ml Inj IVP ONE (14:00)
--- NOTE | 2016-08-13 14:38 | CP.PCM.PN ---
Subjective - Date & Time of Evaluation Date of Evaluation: 08/13/16 Time of Evaluation: 13:00 - Subjective Subjective: Bed bound. High flow O2 in use. Appetite poor. Objective - Vital Signs/Intake and Output Vital Signs (last 24 hours): Temp Pulse Resp BP Pulse Ox 97.8 F 99 H 20 128/79 93 L 08/13/16 14:21 08/13/16 14:21 08/13/16 14:21 08/13/16 14:21 08/13/16 08:42 Intake and Output: 08/13/16 08/13/16 06:59 18:59 Intake Total 240 0 Output Total 950 Balance -710 0 - Medications Medications: Current Medications Budesonide (Pulmicort Respules) 0.5 mg IH [id number] [facility] Last Admin: 08/13/16 08:02 Dose: 0.5 mg Al Hydrox/Mg Hydrox/Simethicone 30 ml/Diphenhydramine HCl 75 mg/Lidocaine 30 ml 0 ml PO Q2H PRN PRN Reason: Mouth/Throat Pain Last Admin: 08/11/16 10:30 Dose: 30 ml Home Med (Home Med) 1 unit PO DAILY [facility] Last Admin: 08/13/16 10:11 Dose: 1 unit Cefepime HCl (Maxipime 1gm) 1 gm in 100 mls @ 100 mls/hr IVPB Q8 [facility] PRN Reason: Protocol Last Admin: 08/13/16 14:00 Dose: 100 mls/hr Doxycycline Hyclate 100 mg/ (Sodium Chloride) 100 mls @ 100 mls/hr IVPB Q12 [facility] PRN Reason: Protocol Last Admin: 08/13/16 11:29 Dose: 100 mls/hr Sodium Chloride (Sodium Chloride 0.9%) 1,000 mls @ 50 mls/hr IV .Q20H [facility] Last Admin: 08/12/16 15:59 Dose: 50 mls/hr Insulin Human Regular (Humulin R Low) 0 units SC ACHS [facility] PRN Reason: Protocol Last Admin: 08/13/16 12:30 Dose: 4 units Levalbuterol HCl (Xopenex) 0.63 mg IH [id number] [facility] Last Admin: 08/13/16 13:40 Dose: 0.63 mg Methylprednisolone (Solu-Medrol) 30 mg IVP Q12 [facility] Last Admin: 08/13/16 10:11 Dose: 30 mg Metoprolol Succinate (Toprol Xl) 50 mg PO BID [facility] Last Admin: 08/13/16 10:12 Dose: Not Given Morphine Sulfate (Morphine) 2 mg IVP Q4H PRN PRN Reason: Pain, severe (8-10) Oxycodone HCl (Oxycontin Extended Release Tab) 10 mg PO Q12 [facility] Stop: 08/14/16 22:01 Last Admin: 08/13/16 10:12 Dose: 10 mg Oxycodone HCl (Oxycodone Immediate Release Tab) 5 mg PO Q6H PRN PRN Reason: MILD PAIN (BREAKTHROUGH) Oxycodone HCl (Oxycodone Immediate Release Tab) 10 mg PO Q6H PRN PRN Reason: MODERATE PAIN (BREAKTHROUGH) Pantoprazole Sodium (Protonix Inj) 40 mg IVP DAILY [facility] Last Admin: 08/13/16 10:15 Dose: 40 mg Polyethylene Glycol (Miralax) 17 gm PO TID [facility] Stop: 08/13/16 18:01 Last Admin: 08/13/16 14:00 Dose: 17 gm Polyethylene Glycol (Miralax) 17 gm PO DAILY [facility] Verapamil HCl (Verapamil Inj) 2.5 mg IVP Q6H PRN PRN Reason: for heart rate >130 - Labs Labs: 08/13/16 07:00 08/13/16 07:00 PT 13.8 Seconds (9.9-11.8) H 08/09/16 16:20 INR 1.28 (0.93-1.08) H 08/09/16 16:20 APTT 29.5 Seconds (23.7-30.8) 08/09/16 16:20 - Constitutional Appears: No Acute Distress, Chronically Ill - Eye Exam Eye Exam: Normal appearance, PERRL - Respiratory Exam Respiratory Exam: Decreased Breath Sounds, NORMAL BREATHING PATTERN - Cardiovascular Exam Cardiovascular Exam: REGULAR RHYTHM, +S1, +S2 - GI/Abdominal Exam GI & Abdominal Exam: Soft, Normal Bowel Sounds - Extremities Exam Extremities Exam: Normal Capillary Refill Additional comments: edema of both lower extremities - Skin Skin Exam: Dry, Warm Assessment and Plan - Assessment and Plan (Free Text) Assessment: 75 year old male,hist of metastatic lung cancer admitted with pneumonia. Patient's met with [facility] administrative liaison. Hospice services reviewed. has agreed to instituting hospice care at home upon patients discharge Plan: Home hospice
[2016-08-13] MEDS: oxyCODONE 10 mg Immediate Release Tab PO PRN (18:28)
--- NOTE | 2016-08-13 18:37 | PN ---
DATE: 08/13/2016 The patient in room 372, bed #2. REASON FOR CONSULTATION: Sinus tachycardia. HISTORY OF PRESENT ILLNESS: The patient known case of carcinoma of the lung with metastasis. Found to have tachycardia for which cardiac evaluation was requested. The patient lying flat in bed withou t any chest pain or palpitation. PHYSICAL EXAMINATION: VITAL SIGNS: Blood pressure 132/84, respirations 19, pulse 87, temperature 98.7. HEAD: Normocephalic. EYES: Pupils normal. Conjunctivae slightly pale. NECK: JVP low. Carotid equal. THORAX: AP diameter normal. LUNGS: No significant rales. CARDIOVASCULAR: S1, S2. ABDOMEN: Soft, nontender, no organomegaly. Bowel sounds normal. EXTREMITIES: No clubbing, no cyanosis. LABORATORY DATA: WBC 11.6, hemoglobin 8.8, hematocrit 28.7, platelets 192. Sodium 139, potassium 3. 8, BUN 13, creatinine 0.6, sugar 304. DIAGNOSES: Sinus tachycardia multifactorial, related to anemia and also metastatic disease, protein calorie malnutrition, uncontrolled diabetes. The patient's stress test November was negative. PLAN: The patient has been started on vibramycin 100 mg IV q. 12 hours. The patient received Lasix 40 mg IV yesterday for swelling of leg. Maxipime 1 gram IV q. 8 hours, IV fluid has been cut down to 50 mL an hour, Solu-Medrol 30 mg IV q. 12 hours, metoprolol 50 mg b.i.d., metoprolol succinate which is Toprol-XL 50 mg b.i.d., verapamil 2.5 IV p.r.n. q. 6 hourly, Xopenex hand nebulizer therapy. Th e patient also on noninvasive respirator. We will continue present therapy and we will follow with robin nassar. The patient's heart rate is stable now. Mayi Wilson MD cc: [phone] TT: 08/13/2016 18:36:19 Confirmation # [id number] Dictation # [id number] jo
--- NOTE | 2016-08-13 18:52 | PN ---
DATE: 08/13/2016 The patient is in room 372, bed 2. SUBJECTIVE: The patient is examined in bed. The person from home hospice services is there with the family. I spoke to the patient. The was also at the bedside, who is a nurse. The patient is comfortable at this time. His breathing is much easier and overall he is feeling better. Pain is be tter controlled on the long acting narcotics and he feels more restful at this time. On physical exa mination, the patient is examined in bed. Vital signs reveal T-max of 98.4, pulse is 90, respirations 20, blood pressure is 119/76, O2 sat is 94 on high flow oxygen. MEDICATIONS: Reviewed. He is on Pulmicort Respules 0.5 mg inhaled q. 12 hours. He is on Mova ntik from home that he is taking once daily. He is on vancomycin 1 gram IV q. 12 hours, cefepime 1 g bryce IV q. 8 hours and doxycycline 100 mg IV q. 12 hours. He is on IV fluids at 50 mL an hour. He is on low dose insulin coverage and Xopenex 0.63 mg inhaled q. 6 hours. He is on methylprednisolone 30 mg IV q. 12 hours and metoprolol 50 mg p.o. b.i.d. He is on morphine sulfate 2 mg IV q. 4 hours p.r. n. for severe pain. He is on OxyContin 10 mg p.o. q. 12 hours, Protonix 40 mg IV piggyback daily, Mi raLax 17 grams daily, verapamil 2.5 mg IV q. 6 hours p.r.n. for heart rate greater than 130. LABORATORY DATA: From today reveals a white count of 11.6, hemoglobin 8.8, hematocrit 28.7, platelet count of 192. BUN of 13, creatinine 0.6. Sodium is 139, potassium is 3.8, chloride is 112, CO2 is 23, blood sugar is 283. PT/INR is grossly within normal limits. PHYSICAL EXAMINATION: GENERAL: The patient is examined in bed. He is in no significant distress. The patient had an intel ligent conversation with me and his, with acting as the translator/interpreter as he spoke in Yoruba to me . The patient is still on high flow oxygen during the day and BiPAP at night. VITAL SIGNS: T-max is 98.4, pulse is 82, respirations 18, blood pressure is 123/83, O2 sat on BiPAP is 93% to 95%. HEENT: Head is normocephalic, atraumatic. Conjunctivae pale. Sclerae are anicteric. Examination of the oropharynx reveals no significant mucositis. No thrush is noted. CARDIOVASCULAR: Systolic ejection murmur at the lower left sternal border. S1 and S2 are normal. N o S3 gallop . LUNGS: Reveals crackles at both lung bases. Less rhonchi, no wheezing. ABDOMEN: Reveals it to be soft, nontender. No liver. No hepatosplenomegaly is noted. No sunny ound, rigidity or guarding is noted. Bowel sounds are present. SKIN: Skin is normal. No skin lesions are noted. Skin turgor is normal. NEUROLOGIC: Higher functions are normal at this time. No focal deficits are noted. EXTREMITIES: Examination of the ankles reveals no cyanosis, clubbing or edema. There is no tendernes s on examination of the calves. 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 PLAN: The patient appears to be comfortable. I discussed in detail with the patient and the and they are still talking to the person from [facility] to make further decisions for [facility] hosp[facility]. In the meantime, we are planning to give the patient 1 unit of blood. Continue the curr ent IV antibiotics for his infection and continue the current pain medications as well. Routine post exam instructions have been given to the patient. Blood work for a.m. have been requested and paper s for hospice will be signed once the family has all the equipment at home set up. I have explained in detail to the patient's regarding what will happen when he goes home, who would be involved i n his care, and I would continue his pain medications. TIME SPENT: Time spent in coordinating for hospice management and plans more than 1 hour. Soni Camacho MD cc: [id number] TT: 08/13/2016 18:52:28 Confirmation # [id number] Dictation # [id number] ln
--- NOTE | 2016-08-13 23:28 | PN ---
DATE: 08/13/2016 ADDENDUM: This is an addendum to the GI progress report dictated by Soraida Jackson APN. The patient has been started Movantik. No bowel movement yet. Would continue the MiraLax until the Movantik effect kicks in. The patient did daycare last Tuesday, not work. ABDOMEN: Soft, no tenderness. PLAN: Will continue to closely follow up his care. Leyda Aviles MD cc: [phone] TT: 08/13/2016 23:27:45 Confirmation # [id number] Dictation # [id number] mn
[2016-08-14] MEDS: Levalbuterol 0.63 MG/3 ML Inhal Soln UD IH SCH ×4 (02:24→20:15)
[2016-08-14] MEDS: Cefepime 1gm in NS 100ml 1 GM/100 ML BAG IVPB SCH ×3 (06:07→21:38)
[2016-08-14] MEDS: Budesonide 0.5 mg/2 ml Inhal Susp UD IH SCH ×2 (07:36→20:15)
[2016-08-14] MEDS: Insulin Reg-LOW-Coverage SC SCH ×4 (08:07→21:31)
[2016-08-14] MEDS: MethylPREDNISolone 40 mg Vial IVP SCH ×2 (09:49→21:38)
[2016-08-14] MEDS: MOVANTIK 12.5 MG PO SCH (09:50)
[2016-08-14] MEDS: POLYETHYLENE GLYCOL 3350 17 GM/Dose PACKET PO SCH (09:50)
[2016-08-14] MEDS: Metoprolol Succinate 50 mg XL Tab PO SCH ×2 (09:50→18:43)
[2016-08-14] MEDS: oxyCODONE 10 mg ER Tab (oxyCONTIN) PO SCH ×2 (09:51→21:38)
[2016-08-14 09:54] LABS: BASO # 0.02 K/mm3 (0.0-2.0); BASO % 0.1 % (0.0-3.0); EOS % 0.1 % (1.5-5.0); GRAN # 13.59 (1.4-6.5); GRAN % 92.6 % (50.0-68.0); HEMATOCRIT 32.2 % (42.0-52.0); LYMPH # 0.6 (1.2-3.4); LYMPH % 4.2 % (22.0-35.0); MEAN CELL VOLUME 93.9 fL (80.0-105.0); MEAN CORPUSCULAR HEMOGLOBIN 29.2 pg (25.0-35.0); MEAN CORPUSCULAR HGB CONC 31.1 g/dl (31.0-37.0); MEAN PLATELET VOLUME 11.6 fl (7.0-11.0); MONO # 0.4 (0.1-0.6); PLATELET COUNT 178 10^3/uL (120.0-450.0); RED CELL DISTRIBUTION WIDTH 18.2 % (11.5-14.5); WHITE BLOOD COUNT 14.7 10^3/ul (4.5-11.0)
[2016-08-14 10:01] LABS: ALB/GLOB RATIO 0.8 (1.1-1.8); ALKALINE PHOSPHATASE 200 U/L (38-133); ALT/SGPT 46 U/L (7-56); AST/SGOT 33 U/L (15-59); BILIRUBIN,TOTAL 0.8 mg/dL (0.2-1.3); BLOOD UREA NITROGEN 12 mg/dL (7-21); CARBON DIOXIDE 20 mmol/L (21-33); CHLORIDE 111 mmol/L (95-110); GFR AFRICAN-AMERICAN > 60; GLUCOSE,RANDOM 242 mg/dL (70-110); POTASSIUM 3.4 mmol/L (3.6-5.0); SODIUM 137 mmol/L (132-148); TOTAL PROTEIN 5.3 g/dL (5.8-8.3)
[2016-08-14 10:07] LABS: CALCIUM 6.9 mg/dL (8.4-10.5)
[2016-08-14 10:23] LABS: ADD MANUAL DIFF? NO
--- NOTE | 2016-08-14 10:56 | PN ---
DATE: 08/14/2016 PULMONARY PROGRESS NOTE SUBJECTIVE: The patient apparently is doing better than in the past. I have discussed his case with his at home as well as his relatives at the bedside. I have discussed with the RN who is sarabjit haynes for him today and my partner, Dr. Woods, who has been following him. There is definitely an impr ovement noted. He is able to talk to me, making complete sense, talking very clearly, actually blaise r than what I have had in the office over the past. He does not appear to be too comfortable, althou gh he is receiving sufficient medications. I see that he is being discharged in 24-48 hours to home hospice. I have discussed with the and patient my availability to come to the house if necessar y to help out with any pulmonary issues. PHYSICAL EXAMINATION: GENERAL: The patient is awake and alert, lying flat in bed. VITAL SIGNS: Afebrile, temperature 98.6, pulse is 80, respiratory rate 16, blood pressure 130/80, O2 sat on BiPAP is 95%. HEENT: Normocephalic, atraumatic. NECK: No jugular venous distention. CARDIOVASCULAR: Regular rhythm. S1, S2 without gallop. Soft systolic ejection murmur at the lower left sternal border. CHEST: There were minimal rales and rhonchi throughout both lung laura. There is no wheezing appre ciated. There is a prolonged expiratory and increased AP diameter. GASTROINTESTINAL: Abdomen soft, bowel sounds normoactive. No mass, guarding, rebound or organomegal y. EXTREMITIES: Reveal no clubbing, cyanosis or edema. There is no Homans sign. SKIN: No rash or excoriation. NEUROLOGIC: Limited, but he is awake and alert and oriented. Mental status is normal. He is able t o move his upper extremities well. The lower extremities have not been tested. His deep tendon refl exes are normal. Babinski is downgoing. LABORATORY DATA: I have reviewed up to date and have noted the findings over the past week or so. IMPRESSION: 1. Status post bilateral pneumonia. 2. Adenocarcinoma, etiology is unclear, whether this represents primary lung cancer or from other harley ve other organ systems cannot be determined at this time. 3. Liver metastasis. 4 . Bone metastasis. 5. Chronic obstructive pulmonary disease - advanced. PLAN: Continue vigorous supportive care. The family has made the decision to make him a DNR, to go home on hospice. Arrangements are currently being made with visiting nurse and hospice to obtain all the appropriate equipment for his house. His is home this morning, fixing things so that she w ill be able to accept him in the next day or so. Outpatient therapy will be determined by Dr. Gary nicholson prior to discharge. We will be happy to intervene whenever necessary. Nasir Headley MD cc: [phone] TT: 08/14/2016 10:55:39 Confirmation # [id number] Dictation # [id number] jn
[2016-08-14] MEDS: oxyCODONE 5 mg Immediate Release Tab PO PRN (13:33)
--- NOTE | 2016-08-14 18:35 | PN ---
DATE: 08/14/2016 The patient is in bed in no acute distress, nontoxic. PHYSICAL EXAMINATION: VITAL SIGNS: Temperature is 98, blood pressure is 130/80, respiratory rate of 18. HEENT: Unremarkable. NECK: Supple. LUNGS: Have decreased breath sounds. HEART: Normal S1, S2. ABDOMEN: Soft, nontender. LABORATORY DATA: Reveals a white count of 14,000, hemoglobin of 10 and platelets of 178. BUN of 12, creatinine of 0.5. Procalcitonin is 0.3. Urinalysis is noted. Microbiology reveals that coag nega tive staph in 1 bottle. ASSESSMENT AND PLAN: A 75-year-old with systemic inflammatory response syndrome with sepsis due to b ilateral healthcare-associated pneumonia in a patient with probable acute bronchitis and coag negativ e staph in 1 bottle, which is most likely a contamination, day #5 of vancomycin and cefepime and Dr. Headley's note is reviewed. The patient's procalcitonin 0.3. Megan Archer's CUSTOMER ACQUISITION SPECIALIST-C note is alex reciated from yesterday. We will discontinue the antibiotics within the next 24 hours. Toño Griffin MD cc: [phone] TT: 08/14/2016 18:34:46 Confirmation # [id number] Dictation # [id number] jn
[2016-08-14] MEDS: Sodium Chloride 0.9% 1,000 ML IV SCH (18:44)
[2016-08-14] MEDS: Aluminum Hydroxide/Magnesium 30 ML, DiphenhydrAMINE 75 MG, Lidocaine 2% Viscous 30 ML PO PRN (18:45)
--- NOTE | 2016-08-14 23:01 | CP.PCM.PN ---
Subjective - Date & Time of Evaluation Date of Evaluation: 08/14/16 Time of Evaluation: 18:00 - Subjective Subjective: Patient complains of diffuse pain when he is out of bed. Pain controlled at rest in bed. 12 ROS otherwise negative. at bedside Objective - Vital Signs/Intake and Output Vital Signs (last 24 hours): Temp Pulse Resp BP Pulse Ox 98.6 F 83 18 133/82 92 L 08/14/16 18:00 08/14/16 18:43 08/14/16 18:00 08/14/16 18:43 08/14/16 18:00 Intake and Output: 08/14/16 08/15/16 18:59 06:59 Intake Total 120 Output Total 200 Balance -80 - Medications Medications: Current Medications Budesonide (Pulmicort Respules) 0.5 mg IH [id number] ANDREA Last Admin: 08/14/16 20:15 Dose: 0.5 mg Al Hydrox/Mg Hydrox/Simethicone 30 ml/Diphenhydramine HCl 75 mg/Lidocaine 30 ml 0 ml PO Q2H PRN PRN Reason: Mouth/Throat Pain Last Admin: 08/14/16 18:45 Dose: 5 ml Home Med (Home Med) 1 unit PO DAILY ANDREA Last Admin: 08/14/16 09:50 Dose: 1 unit Cefepime HCl (Maxipime 1gm) 1 gm in 100 mls @ 100 mls/hr IVPB Q8 ANDREA PRN Reason: Protocol Last Admin: 08/14/16 21:38 Dose: 100 mls/hr Doxycycline Hyclate 100 mg/ (Sodium Chloride) 100 mls @ 100 mls/hr IVPB Q12 ANDREA PRN Reason: Protocol Last Admin: 08/14/16 21:37 Dose: 100 mls/hr Sodium Chloride (Sodium Chloride 0.9%) 1,000 mls @ 50 mls/hr IV .Q20H ANDREA Last Admin: 08/14/16 18:44 Dose: 50 mls/hr Insulin Human Regular (Humulin R Low) 0 units SC ACHS ANDREA PRN Reason: Protocol Last Admin: 08/14/16 21:31 Dose: Not Given Levalbuterol HCl (Xopenex) 0.63 mg IH [id number] ANDREA Last Admin: 08/14/16 20:15 Dose: 0.63 mg Methylprednisolone (Solu-Medrol) 15 mg IVP Q12 [facility] Last Admin: 08/14/16 21:38 Dose: 15 mg Metoprolol Succinate (Toprol Xl) 50 mg PO BID [facility] Last Admin: 08/14/16 18:43 Dose: 50 mg Morphine Sulfate (Morphine) 2 mg IVP Q4H PRN PRN Reason: Pain, severe (8-10) Oxycodone HCl (Oxycodone Immediate Release Tab) 5 mg PO Q6H PRN PRN Reason: MILD PAIN (BREAKTHROUGH) Last Admin: 08/14/16 13:33 Dose: 5 mg Oxycodone HCl (Oxycodone Immediate Release Tab) 10 mg PO Q6H PRN PRN Reason: MODERATE PAIN (BREAKTHROUGH) Last Admin: 08/13/16 18:28 Dose: 10 mg Pantoprazole Sodium (Protonix Inj) 40 mg IVP DAILY [facility] Last Admin: 08/14/16 09:49 Dose: 40 mg Polyethylene Glycol (Miralax) 17 gm PO DAILY [facility] Last Admin: 08/14/16 09:50 Dose: 17 gm Verapamil HCl (Verapamil Inj) 2.5 mg IVP Q6H PRN PRN Reason: for heart rate >130 - Labs Labs: 08/14/16 09:49 08/14/16 09:49 PT 13.8 Seconds (9.9-11.8) H 08/09/16 16:20 INR 1.28 (0.93-1.08) H 08/09/16 16:20 APTT 29.5 Seconds (23.7-30.8) 08/09/16 16:20 - Constitutional Appears: Non-toxic - Head Exam Head Exam: ATRAUMATIC, NORMAL INSPECTION, NORMOCEPHALIC - Respiratory Exam Respiratory Exam: Clear to Ausculation Bilateral, NORMAL BREATHING PATTERN - Cardiovascular Exam Cardiovascular Exam: REGULAR RHYTHM, +S1, +S2. absent: Murmur - GI/Abdominal Exam GI & Abdominal Exam: Soft, Normal Bowel Sounds. absent: Tenderness - Extremities Exam Extremities Exam: Full ROM, Normal Capillary Refill, Normal Inspection. absent : Joint Swelling, Pedal Edema Assessment and Plan - Assessment and Plan (Free Text) Plan: Mr. Loo lakeisha 75 y/o man with pmhx significant for stage IV adeno ca of unclear eitology who is currently admitted to the hospital for refractory pain and concern for possible HCAP/COPD exacerbation. Plan is for patient to be transitioning to hospice care services at home next week. In interim will focus on symptom based treatments. Plan on reducing solumedrol dosing per patient preference and concern for glossal swelling by . Abx to be dc'ed prior to discharge. Continue with pain management regimen. Bryan Camacho MD Oncology Service
[2016-08-15] MEDS: oxyCODONE 10 mg Immediate Release Tab PO PRN (00:26)
[2016-08-15] MEDS: Levalbuterol 0.63 MG/3 ML Inhal Soln UD IH SCH ×4 (01:10→19:08)
[2016-08-15] MEDS: Cefepime 1gm in NS 100ml 1 GM/100 ML BAG IVPB SCH ×2 (05:12→15:01)
[2016-08-15] MEDS: Budesonide 0.5 mg/2 ml Inhal Susp UD IH SCH ×2 (07:43→19:08)
[2016-08-15] MEDS: Insulin Reg-LOW-Coverage SC SCH ×4 (08:06→22:38)
[2016-08-15] MEDS: MethylPREDNISolone 40 mg Vial IVP SCH ×2 (09:13→22:41)
[2016-08-15] MEDS: oxyCODONE 10 mg ER Tab (oxyCONTIN) PO SCH ×2 (09:14→22:38)
[2016-08-15] MEDS: Metoprolol Succinate 50 mg XL Tab PO SCH ×2 (09:14→17:21)
[2016-08-15] MEDS: Aluminum Hydroxide/Magnesium 30 ML, DiphenhydrAMINE 75 MG, Lidocaine 2% Viscous 30 ML PO PRN (09:14)
[2016-08-15] MEDS: MOVANTIK 12.5 MG PO SCH ×2 (09:14→09:31)
[2016-08-15] MEDS: POLYETHYLENE GLYCOL 3350 17 GM/Dose PACKET PO SCH (09:31)
[2016-08-15] MEDS: oxyCODONE 5 mg Immediate Release Tab PO PRN ×2 (10:10→18:57)
[2016-08-15 11:01] LABS: TROPONIN I < 0.01 ng/mL
--- NOTE | 2016-08-15 11:28 | PN ---
DATE: 08/15/2016 Pulmonary progress note SUBJECTIVE: Although the patient is being prepared for discharge in the morning, he states that he h as some chest discomfort today. He is unable to adequately explain what type of pain this is. It do es not appear to be pleuritic. I can usually communicate quite well with him. There was someone at the bedside who was translating, but it still remains unclear to me the nature of this pain. It is n ot related to movement. It is not musculoskeletal. I do not think it is musculoskeletal. There may be a cardiac component. Further evaluation must be done to see what is actually transpiring. Other herrera, he is breathing comfortably with a good pulse and adequate oxygenation. PHYSICAL EXAMINATION: GENERAL: He is comfortable. VITAL SIGNS: Afebrile, pulse 86, respiratory rate 18, blood pressure 140/90, O2 sat 96%. HEENT: Normocephalic, atraumatic. NECK: Supple. No JVD. No bruit. CARDIOVASCULAR: Regular rhythm, S1, S2. Soft systolic ejection murmur at the lower left sternal bor kim. CHEST: Clearer than yesterday. Minimal rales and rhonchi in both lung laura. No wheezing apprecia tara. Prolonged expiratory phase is normal for this patient. GASTROINTESTINAL: Abdomen soft. Bowel sounds normoactive without mass, guarding, rebound or organom egaly. EXTREMITIES: Reveal no clubbing, cyanosis or edema. There is no Homans sign. NEUROLOGIC: Unchanged. No new laboratory studies are available. IMPRESSION: 1. Chest pain (etiology unclear). 2. Adenocarcinoma, etiology of this remains unclear as well. 3. Probable liver mets. 4. Bone metastases. 5. Severe chronic obstructive pulmonary disease, advanced. 6. Continued smoking history. PLAN: 1. Workup this chest pain. Cardiac evaluation, EKG, etc. Do not believe this is pulmonary in mauricio poole. 2. Await further recommendations to see if he can actually be discharged in the morning. We will di scuss with Dr. Woods, my associate, to make sure that things are stable before he is discharged. Nasir Headley MD cc: [phone] TT: 08/15/2016 11:27:19 Confirmation # [id number] Dictation # [id number] en
--- NOTE | 2016-08-15 16:10 | PN ---
DATE: 08/15/2016 The patient was reported by the petroleum refinery operator for the patient to have chest pain. At the bedside wit h the patient and family, the patient denies chest pain today. No shortness of breath above his normal chronic shortness of breath. PHYSICAL EXAMINATION: VITAL SIGNS: The blood pressure is 134/84, the heart rate is in the 80s, normal sinus rhythm. NECK: Negative JVD. LUNGS: Decreased breath sounds. HEART: Revealed S1, S2. EXTREMITIES: Without edema. LABORATORIES: Reveal troponins that are negative x 1. EKG shows no acute changes. IMPRESSION: 1. No evidence for acute coronary syndrome. 2. Chronic obstructive pulmonary disease. 3. Diabetes mellitus. 4. Lung carcinoma. 5. Chronic dyspnea. PLAN: Given these findings, there is no evidence for acute coronary syndrome. The patient is DNR an d DNI. Continue supportive care. No active cardiac intervention is necessary. Jaspal Mistry MD cc: [id number] TT: 08/15/2016 16:10:11 Confirmation # [id number] Dictation # [id number] dn
--- NOTE | 2016-08-15 17:20 | PN ---
DATE: 08/15/2016 SUBJECTIVE: This patient was seen and evaluated today. The patient apparently moved his bowels 3 ti mes yesterday. No complaints of abdominal pain. PHYSICAL EXAMINATION: VITAL SIGNS: Temperature is 98.2, pulse 87, blood pressure 134/84. HEENT: Atraumatic, anicteric. NECK: Supple. HEART: S1, S2 heard. LUNGS: Bilateral air entry present. There are a few scattered rhonchi present. ABDOMEN: Soft. There was no tenderness. EXTREMITIES: No edema, no cyanosis or clubbing. IMPRESSION: This is a 75-year-old patient with adenocarcinomas unknown primary with bone metastases, admitted with pneumonia and chronic obstructive pulmonary disease, has chronic constipation. The pa ankita was on Movantik at home, which he has been started taking it now. On admission, the patient di d receive Relistor. Will continue the present regimen. Thank you very much for allowing me to participate in the care of the patient. Leyda Aviles MD cc: [phone] TT: 08/15/2016 17:19:28 Confirmation # [id number] Dictation # [id number] adriano
[2016-08-15] MEDS: Sodium Chloride 0.9% 1,000 ML IV SCH ×2 (17:22→23:55)
--- NOTE | 2016-08-15 17:42 | PN ---
DATE: 08/15/2016 The patient is in bed in no acute distress, nontoxic. PHYSICAL EXAMINATION: VITAL SIGNS: Temperature is 98, blood pressure is 130/80, respiratory rate of 18. HEENT: Unremarkable. NECK: Supple. LUNGS: Have decreased breath sounds. HEART: Normal S1, S2. ABDOMEN: Soft, nontender. LABORATORY DATA: Reveals a white count of 14,700, hemoglobin of 10, platelets of 178. Chemistries r eveal the BUN of 12, creatinine of 0.5. Urinalysis is noted. Microbiology reveals the coag-negative staph in 1 bottle. Review of orders reveals the patient is on IV doxycycline and IV cefepime. The patient's procalcitonin is 0.3. Dr. Jaspal Mistry's note is reviewed, Dr. Headley's note is reviewed and Dr. Camacho's note is reviewed. ASSESSMENT AND PLAN: This is a 75-year-old white male with systemic inflammatory response syndrome a nd sepsis due to bilateral healthcare-associated pneumonia, probable acute bronchitis, coagulase-nega tive Staphylococcus bacteremia, most likely a contamination, day #6 of cefepime and doxycycline. Ronak l discontinue the antibiotics. The patient is overall in poor condition. He is at risk for developi ng new nosocomial infections. Will discontinue doxycycline and discontinue the cefepime. Supportive care in hospice setting most appropriate. Toño Griffin MD cc: [phone] TT: 08/15/2016 17:41:38 Confirmation # [id number] Dictation # [id number] mn
--- NOTE | 2016-08-15 21:31 | CP.PCM.PN ---
Subjective - Date & Time of Evaluation Date of Evaluation: 08/15/16 Time of Evaluation: 17:00 - Subjective Subjective: Patient had abx dc'ed today. Pain controlled more or less. Not able to tolerate RA off of high flow as he desaturated. preparing for hospice services at home. Large extended family spent time with patient today. Patient received relestor last night still awaiting BM 12 ROS otherwise negative Objective - Vital Signs/Intake and Output Vital Signs (last 24 hours): Temp Pulse Resp BP Pulse Ox 98.2 F 81 18 121/73 90 L 08/15/16 06:00 08/15/16 17:21 08/15/16 17:00 08/15/16 17:21 08/15/16 16:48 - Medications Medications: Current Medications Budesonide (Pulmicort Respules) 0.5 mg IH [id number] [facility] Last Admin: 08/15/16 19:08 Dose: 0.5 mg Al Hydrox/Mg Hydrox/Simethicone 30 ml/Diphenhydramine HCl 75 mg/Lidocaine 30 ml 0 ml PO Q2H PRN PRN Reason: Mouth/Throat Pain Last Admin: 08/15/16 09:14 Dose: 5 ml Home Med (Home Med) 1 unit PO DAILY [facility] Last Admin: 08/15/16 09:31 Dose: Not Given Sodium Chloride (Sodium Chloride 0.9%) 1,000 mls @ 50 mls/hr IV .Q20H [facility] Last Admin: 08/15/16 17:22 Dose: 50 mls/hr Insulin Human Regular (Humulin R Low) 0 units SC ACHS [facility] PRN Reason: Protocol Last Admin: 08/15/16 17:21 Dose: 1 units Levalbuterol HCl (Xopenex) 0.63 mg IH [id number] [facility] Last Admin: 08/15/16 19:08 Dose: 0.63 mg Methylprednisolone (Solu-Medrol) 15 mg IVP Q12 [facility] Last Admin: 08/15/16 09:13 Dose: 15 mg Metoprolol Succinate (Toprol Xl) 50 mg PO BID [facility] Last Admin: 08/15/16 17:21 Dose: 50 mg Oxycodone HCl (Oxycodone Immediate Release Tab) 5 mg PO Q6H PRN PRN Reason: MILD PAIN (BREAKTHROUGH) Last Admin: 08/15/16 18:57 Dose: 5 mg Oxycodone HCl (Oxycodone Immediate Release Tab) 10 mg PO Q6H PRN PRN Reason: MODERATE PAIN (BREAKTHROUGH) Last Admin: 08/15/16 00:26 Dose: 10 mg Oxycodone HCl (Oxycontin Extended Release Tab) 10 mg PO Q12 [facility] Stop: 08/18/16 10:01 Last Admin: 08/15/16 09:14 Dose: 10 mg Pantoprazole Sodium (Protonix Inj) 40 mg IVP DAILY [facility] Last Admin: 08/15/16 09:14 Dose: 40 mg Polyethylene Glycol (Miralax) 17 gm PO DAILY [facility] Last Admin: 08/15/16 09:31 Dose: Not Given Verapamil HCl (Verapamil Inj) 2.5 mg IVP Q6H PRN PRN Reason: for heart rate >130 - Labs Labs: 08/14/16 09:49 08/14/16 09:49 PT 13.8 Seconds (9.9-11.8) H 08/09/16 16:20 INR 1.28 (0.93-1.08) H 08/09/16 16:20 APTT 29.5 Seconds (23.7-30.8) 08/09/16 16:20 - Constitutional Appears: Non-toxic - Cardiovascular Exam Cardiovascular Exam: REGULAR RHYTHM, +S1, +S2. absent: Murmur - GI/Abdominal Exam GI & Abdominal Exam: Soft, Normal Bowel Sounds. absent: Tenderness - Back Exam Back Exam: NORMAL INSPECTION Assessment and Plan - Assessment and Plan (Free Text) Plan: Mr. Loo lakeisha 75 y/o man with pmhx significant for stage IV adeno ca of unclear etiology who is currently admitted to the hospital for refractory pain and concern for possible HCAP/COPD exacerbation. Plan is for patient to be transitioning to hospice care services at home next week. In interim will focus on symptom based treatments. Bryan Camacho MD Oncology Service
[2016-08-16] MEDS: Levalbuterol 0.63 MG/3 ML Inhal Soln UD IH SCH ×5 (04:12→20:22)
[2016-08-16] MEDS: oxyCODONE 10 mg Immediate Release Tab PO PRN ×2 (05:00→15:17)
[2016-08-16] MEDS ORDERED: Pantoprazole 40 mg EC Tab PO SCH (07:30)
[2016-08-16] MEDS: Budesonide 0.5 mg/2 ml Inhal Susp UD IH SCH ×2 (07:57→20:22)
[2016-08-16] MEDS: Insulin Reg-LOW-Coverage SC SCH ×4 (08:28→22:53)
[2016-08-16] MEDS: oxyCODONE 5 mg Immediate Release Tab PO PRN ×2 (08:38→19:56)
[2016-08-16] MEDS: MOVANTIK 12.5 MG PO SCH (09:03)
[2016-08-16] MEDS: MethylPREDNISolone 40 mg Vial IVP SCH ×2 (09:08→21:39)
[2016-08-16] MEDS: Metoprolol Succinate 50 mg XL Tab PO SCH ×2 (09:09→17:00)
[2016-08-16] MEDS: oxyCODONE 10 mg ER Tab (oxyCONTIN) PO SCH ×2 (09:09→21:38)
--- NOTE | 2016-08-16 09:15 | CARD ---
APPROVED REPORT EKG Measurement Heart [id number] <Conclusion> Sinus tachycardia, APC's Right bundle branch block Leftward axis
--- NOTE | 2016-08-16 10:33 | PN ---
DATE: 08/16/2016 SUBJECTIVE: The patient appears comfortable this morning. He is not short of breath at rest. PHYSICAL EXAMINATION: VITAL SIGNS: Last temperature recorded is 98.2, pulse 79, respirations 18, blood pressure 121/73. Oxygen saturation -- last measured on high flow delivery -- is 92%. HEENT: Normocephalic, atraumatic. No JVD. CARDIOVASCULAR: Systolic ejection murmur at the lower left sternal border. No S3 gallop. LUNGS: Crackles at both bases. Minimal/less rhonchi. No wheezing. EXTREMITIES: No clubbing, cyanosis, or edema. Calves are nontender to palpation. GASTROINTESTINAL: Abdomen is soft, nontender, nondistended. Bowel sounds are positive. SKIN: No acute rash. NEUROLOGIC: Limited at the present time. IMPRESSION: 1. Bilateral pneumonia. 2. Acute bronchitis. 3. 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 4. Liver and bony metastasis. 5. Advanced chronic obstructive pulmonary disease. 6. Anemia. PLAN: The patient appears comfortable this morning. He is not short of breath at rest. Oxygen saturation on high flow delivery is 92%. On physical exam, his bronchospasm is certainly less. I will continue with the current nebulizer treatments and low-dose intravenous steroids -- decreased over the weekend -- for now. The patient is now off antibiotic therapy -- as per infectious disease. I will discuss the case with Dr. Griffin this morning. I did review the note by Megan Archer (palliative care). The patient is for hospice placement in the very near future. Unfortunately, the overall status/ prognosis of this patient remains very poor. I will discuss the above with the attending physician this morning. Abilio Woods MD cc: [phone] TT: 08/16/2016 10:33:02 Confirmation # [id number] Dictation # [id number] en MTDD
--- NOTE | 2016-08-16 11:38 | CP.PCM.PN ---
Subjective - Date & Time of Evaluation Date of Evaluation: 08/16/16 Time of Evaluation: 10:00 - Subjective Subjective: Alert, offers no complaints. Bed bound Objective - Vital Signs/Intake and Output Vital Signs (last 24 hours): Temp Pulse Resp BP Pulse Ox 97.6 F 73 18 142/87 94 L 08/16/16 09:39 08/16/16 09:39 08/16/16 09:39 08/16/16 09:39 08/16/16 09:39 Intake and Output: 08/16/16 08/16/16 06:59 18:59 Intake Total 120 Output Total 300 Balance -180 - Medications Medications: Current Medications Budesonide (Pulmicort Respules) 0.5 mg IH [id number] [facility] Last Admin: 08/16/16 07:57 Dose: 0.5 mg Al Hydrox/Mg Hydrox/Simethicone 30 ml/Diphenhydramine HCl 75 mg/Lidocaine 30 ml 0 ml PO Q2H PRN PRN Reason: Mouth/Throat Pain Last Admin: 08/15/16 09:14 Dose: 5 ml Home Med (Home Med) 1 unit PO DAILY [facility] Last Admin: 08/16/16 09:03 Dose: Not Given Sodium Chloride (Sodium Chloride 0.9%) 1,000 mls @ 50 mls/hr IV .Q20H [facility] Last Admin: 08/15/16 23:55 Dose: 50 mls/hr Insulin Human Regular (Humulin R Low) 0 units SC ACHS ANDREA PRN Reason: Protocol Last Admin: 08/16/16 08:28 Dose: 2 units Levalbuterol HCl (Xopenex) 0.63 mg IH [id number] [facility] Last Admin: 08/16/16 07:56 Dose: 0.63 mg Methylprednisolone (Solu-Medrol) 15 mg IVP Q12 [facility] Last Admin: 08/16/16 09:08 Dose: 15 mg Metoprolol Succinate (Toprol Xl) 50 mg PO BID [facility] Last Admin: 08/16/16 09:09 Dose: 50 mg Oxycodone HCl (Oxycodone Immediate Release Tab) 5 mg PO Q6H PRN PRN Reason: MILD PAIN (BREAKTHROUGH) Last Admin: 08/16/16 08:38 Dose: 5 mg Oxycodone HCl (Oxycodone Immediate Release Tab) 10 mg PO Q6H PRN PRN Reason: MODERATE PAIN (BREAKTHROUGH) Last Admin: 08/16/16 05:00 Dose: 10 mg Oxycodone HCl (Oxycontin Extended Release Tab) 10 mg PO Q12 [facility] Stop: 08/18/16 10:01 Last Admin: 08/16/16 09:09 Dose: 10 mg Pantoprazole Sodium (Protonix Ec Tab) 40 mg PO ACB ANDREA Last Admin: 08/16/16 08:28 Dose: 40 mg Polyethylene Glycol (Miralax) 17 gm PO DAILY [facility] Last Admin: 08/15/16 09:31 Dose: Not Given Verapamil HCl (Verapamil Inj) 2.5 mg IVP Q6H PRN PRN Reason: for heart rate >130 - Labs Labs: 08/14/16 09:49 08/14/16 09:49 PT 13.8 Seconds (9.9-11.8) H 08/09/16 16:20 INR 1.28 (0.93-1.08) H 08/09/16 16:20 APTT 29.5 Seconds (23.7-30.8) 08/09/16 16:20 - Constitutional Appears: No Acute Distress, Chronically Ill - Eye Exam Eye Exam: Normal appearance, PERRL - Respiratory Exam Respiratory Exam: Decreased Breath Sounds, NORMAL BREATHING PATTERN - Cardiovascular Exam Cardiovascular Exam: REGULAR RHYTHM, +S1, +S2 - GI/Abdominal Exam GI & Abdominal Exam: Soft, Normal Bowel Sounds - Extremities Exam Extremities Exam: Normal Capillary Refill Additional comments: bilateral lower extremity edema - Skin Skin Exam: Dry, Warm Assessment and Plan - Assessment and Plan (Free Text) Assessment: 75 year old male was admitted with community acquired pneumonia. History of metastatic lung cancer. The patient has completed antibiotic therapy. He offers no new complaints. His respiratory status is stable. His is taking Oxycodone ER 10 mg twice daily and Oxycodone IR 10 mg as needed for breakthrough pain. He is scheduled to go home with hospice services upon discharge. Thank you for allowing me to participate in this patients care.j Plan: Home with hospice services.
--- NOTE | 2016-08-16 15:36 | PN ---
DATE: 08/16/2016 GI FOLLOWUP NOTE Seen and examined at the bedside earlier today. The patient reports not having any bowel movement. He remains on high-flow oxygen. The family is currently at the bedside. No reports of any acute ove rnight events. The patient had been on Movantik. VITAL SIGNS: Temperature is 97.6, blood pressure 142/87, pulse 73, respirations 18. LABORATORY DATA: Only labs noted is POC glucose at 232. PHYSICAL EXAMINATION: HEENT: Sclerae are anicteric. NECK: Supple. CARDIAC: S1, S2. LUNGS: Lung sounds with decreased breath sounds. ABDOMEN: With bowel sounds, soft. No tenderness on palpation. EXTREMITIES: Positive bilateral lower extremity edema. 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 The patient came with pneumonia and has history of chronic obstructive pulmonary disease, a nd history of chronic constipation. The patient did have a dose of Relistor on admission. Did not h ave any ____. No response to that. He was taking Movantik at home, and that was started, which he rosendo crtly is taking along with MiraLax. Continue PPI, the patient poor appetite. The patient is on oxycodone, Solu-Medrol. Continue to jojo tor. PLAN: When the patient is discharged, he is going home on home hospice. The patient was seen and di scussed with Dr. Aviles. Soraida CUMMINS cc: [id number] TT: 08/16/2016 15:35:46 Confirmation # [id number] Dictation # [id number] jo
[2016-08-16] MEDS: POLYETHYLENE GLYCOL 3350 17 GM/Dose PACKET PO SCH (18:09)
--- NOTE | 2016-08-16 19:18 | PN ---
DATE: 08/16/2016 ADDENDUM: This is an addendum to the GI progress report dictated by Soraida Jackson APN. The patient did have a bowel movement yesterday. The patient has been on Movantik at home, and which is started again here. The patient did receive when the patient came in. The patient has a h istory of poorly differentiated adenocarcinoma with bony metastasis. Now admitted with pneumonia, ch ronic obstructive disease. PLAN: The patient's antibiotics have been discontinued by ID today. Continue the present management . Thank you very much for allowing us to participate in the care of the patient. Leyda Aviles MD cc: [phone] TT: 08/16/2016 19:18:49 Confirmation # [id number] Dictation # [id number] delaney
--- NOTE | 2016-08-16 22:02 | CP.PCM.PN ---
Subjective - Date & Time of Evaluation Date of Evaluation: 08/16/16 Time of Evaluation: 21:59 - Subjective Subjective: Patient was seen at bedside because he had sob, pulse ox was 85% on BiPAP of 10/ 5 50% , FSBS 245 mg %.139/84,128/min,Temp:97.9 He complains of shortness of breath.Has no other complaints. Denies chest pain, sweating , palpitation, nausea, sweating. ROS is neg except for above. Medical chart was reviewed. This 75 year old male was admitted with intractable pain in lower back, Has PMH of metastatic adenocarcinoma, S/P kyphoplasty, S/P radiation to lumbar spine, S/P chemotherapy. Objective - Vital Signs/Intake and Output Vital Signs (last 24 hours): Temp Pulse Resp BP Pulse Ox 97.4 F L 112 H 20 112/82 88 L 08/16/16 18:00 08/16/16 20:15 08/16/16 18:00 08/16/16 18:18 08/16/16 18:00 Intake and Output: 08/16/16 08/17/16 18:59 06:59 Intake Total 700 Output Total 600 Balance 100 - Medications Medications: Current Medications Budesonide (Pulmicort Respules) 0.5 mg IH [id number] [facility] Last Admin: 08/16/16 20:22 Dose: 0.5 mg Al Hydrox/Mg Hydrox/Simethicone 30 ml/Diphenhydramine HCl 75 mg/Lidocaine 30 ml 0 ml PO Q2H PRN PRN Reason: Mouth/Throat Pain Last Admin: 08/15/16 09:14 Dose: 5 ml Home Med (Home Med) 1 unit PO DAILY [facility] Last Admin: 08/16/16 09:03 Dose: Not Given Sodium Chloride (Sodium Chloride 0.9%) 1,000 mls @ 50 mls/hr IV .Q20H [facility] Last Admin: 08/15/16 23:55 Dose: 50 mls/hr Insulin Human Regular (Humulin R Low) 0 units SC ACHS ANDREA PRN Reason: Protocol Last Admin: 08/16/16 17:01 Dose: 3 units Levalbuterol HCl (Xopenex) 0.63 mg IH [id number] [facility] Last Admin: 08/16/16 20:22 Dose: 0.63 mg Methylprednisolone (Solu-Medrol) 15 mg IVP Q12 [facility] Last Admin: 08/16/16 21:39 Dose: 15 mg Metoprolol Succinate (Toprol Xl) 50 mg PO BID [facility] Last Admin: 08/16/16 17:00 Dose: 50 mg Oxycodone HCl (Oxycodone Immediate Release Tab) 5 mg PO Q6H PRN PRN Reason: MILD PAIN (BREAKTHROUGH) Last Admin: 08/16/16 19:56 Dose: 5 mg Oxycodone HCl (Oxycodone Immediate Release Tab) 10 mg PO Q6H PRN PRN Reason: MODERATE PAIN (BREAKTHROUGH) Last Admin: 08/16/16 15:17 Dose: 10 mg Oxycodone HCl (Oxycontin Extended Release Tab) 10 mg PO Q12 [facility] Stop: 08/18/16 10:01 Last Admin: 08/16/16 21:38 Dose: 10 mg Pantoprazole Sodium (Protonix Ec Tab) 40 mg PO ACB [facility] Last Admin: 08/16/16 08:28 Dose: 40 mg Polyethylene Glycol (Miralax) 17 gm PO DAILY [facility] Last Admin: 08/16/16 18:09 Dose: Not Given Verapamil HCl (Verapamil Inj) 2.5 mg IVP Q6H PRN PRN Reason: for heart rate >130 - Labs Labs: 08/14/16 09:49 08/14/16 09:49 PT 13.8 Seconds (9.9-11.8) H 08/09/16 16:20 INR 1.28 (0.93-1.08) H 08/09/16 16:20 APTT 29.5 Seconds (23.7-30.8) 08/09/16 16:20 - Constitutional Appears: Well, No Acute Distress - Head Exam Head Exam: ATRAUMATIC, NORMAL INSPECTION, NORMOCEPHALIC - Eye Exam Eye Exam: Normal appearance - ENT Exam ENT Exam: Normal External Ear Exam - Neck Exam Neck Exam: Normal Inspection - Respiratory Exam Respiratory Exam: Wheezes (Bilateral.). absent: Respiratory Distress, Stridor Additional comments: BiPAP mask on. - Cardiovascular Exam Cardiovascular Exam: Tachycardia, REGULAR RHYTHM - GI/Abdominal Exam GI & Abdominal Exam: absent: Distended - Rectal Exam Rectal Exam: Deferred - Extremities Exam Extremities Exam: Normal Inspection. absent: Calf Tenderness, Pedal Edema - Back Exam Back Exam: NORMAL INSPECTION - Neurological Exam Neurological Exam: Alert, Awake, Oriented x3 - Psychiatric Exam Psychiatric exam: Normal Affect, Normal Mood - Skin Skin Exam: Normal Color Assessment and Plan - Assessment and Plan (Free Text) Assessment: Hypoxia. Sinus tachycardia. Dyspnea. R/O PE. R/O myocardial injury. Low back pain. Metastatic lung disease. Leukocytosis. Anemia. Plan: Xopenex 1.25 mg neb treatment given. Solumedrol 40 mg IV ordered. Magnesium , Phosph, D-dimer, ABG ,EKG ordered. Na Phosphate 15 mMol. Magnesium sulfate 2 gm IV . 100 % FiO2 instead of 50% for now with I/E 12/09. Called on cell phone and left message. After CT angio result, Lovenox 40 mg SC was ordered for prophylaxis. EKG-Sinus tachycardia, no acute ST T changes. Phos-1.1 Magnesium -1.4 D-Dimer -8.95. Doppler study of both lower extremities: Prelim. negative for DVT. CT Angio Chest: No PE, small right pleural effusion, CHF? , ground glass appearance, lytic lesions of ribs. TIME SPENT:60 MINUTES.
[2016-08-16] MEDS ORDERED: Levalbuterol 1.25 MG/3 ML Inhal Soln UD IH STA (22:21)
[2016-08-16] MEDS ORDERED: MethylPREDNISolone 40 mg Vial IVP STA (22:22)
[2016-08-16 22:47] LABS: ADD MANUAL DIFF? YES; HEMATOCRIT 34.9 % (42.0-52.0); MEAN CELL VOLUME 94.3 fL (80.0-105.0); MEAN CORPUSCULAR HEMOGLOBIN 29.7 pg (25.0-35.0); MEAN CORPUSCULAR HGB CONC 31.5 g/dl (31.0-37.0); MEAN PLATELET VOLUME 11.8 fl (7.0-11.0); PLATELET COUNT 193 10^3/uL (120.0-450.0); RED CELL DISTRIBUTION WIDTH 18.8 % (11.5-14.5); WHITE BLOOD COUNT 17.9 10^3/ul (4.5-11.0)
[2016-08-16] MEDS: Sodium Chloride 0.9% 1,000 ML IV SCH (22:54)
[2016-08-16 22:55] LABS: BLOOD UREA NITROGEN 9 mg/dL (7-21); CALCIUM 7.2 mg/dL (8.4-10.5); CARBON DIOXIDE 20 mmol/L (21-33); CHLORIDE 109 mmol/L (98-107); GFR AFRICAN-AMERICAN > 60; GLUCOSE,RANDOM 219 mg/dL (70-110); MAGNESIUM 1.4 mg/dL (1.7-2.2); POTASSIUM 3.6 mmol/L (3.6-5.0); SODIUM 135 mmol/L (132-148)
[2016-08-16 22:57] LABS: PHOSPHOROUS 1.1 mg/dL (2.5-4.5)
[2016-08-16 23:10] LABS: TROPONIN I 0.01 ng/mL
[2016-08-16] MEDS ORDERED: Magnesium Sulfate 2 GM in Sodium Chloride 0.9% 100 ML IVPB ONE (23:12)
[2016-08-16] MEDS ORDERED: Sodium Phosphate 15 MMOLE in Sodium Chloride 0.9% 250 ML IVPB ONE (23:13)
[2016-08-16 23:32] LABS: ARTERIAL BLOOD GAS HCO3 18.2 mmol/L (21-28); ARTERIAL BLOOD GAS O2 CAPACITY 15.2 mL/dl (16-24); ARTERIAL BLOOD GAS O2 CONTENT 13.5 ML/dl (15-23); ARTERIAL BLOOD GAS PH 7.42 (7.35-7.45); ARTERIAL BLOOD HGB O2 SAT 85.3 % (95.0-98.0); CARBOXYHEMOGLOBIN 2.8 % (0.5-1.5); HHB 10.6 % (0-5); METHEMOGLOBIN 1.3 % (0.0-3.0)
[2016-08-16] MEDS ORDERED: oxyCODONE 10 mg Immediate Release Tab PO STA (23:59)
[2016-08-17 00:25] LABS: BAND 8 % (0-2); NEUTROPHIL 84 % (50.0-70.0)
[2016-08-17 00:26] LABS: ANISOCYTOSIS 1+; MYELOCYTE 3 %; NUCLEATED RED BLOOD CELL 1 %; PLATELET ESTIMATE NORMAL (NORMAL); POLYCHROMASIA 1+
--- NOTE | 2016-08-17 01:18 | PN ---
DATE: 08/16/2016 The patient is in room 372, bed 2. SUBJECTIVE: The patient is feeling comfortable this morning. No longer short of breath. Pain appea rs to be well controlled on the OxyContin, along with intermittent oxycodone, which he is taking and seems to be holding his pain, not coughing. No fevers, no chills. PHYSICAL EXAMINATION: VITAL SIGNS: T-max is 98.2, pulse is 79, respirations 18, blood pressure 121/72, O2 sat last measure d on high-flow oxygen is 92%. HEENT: Head is normocephalic, atraumatic. Temporal muscle wasting is noted. Examination of the michael pharynx reveals no oropharyngeal lesions. Tongue is moist. NECK: Supple. There is no adenopathy. No jugular venous distention noted. CARDIOVASCULAR SYSTEM: Reveals systolic ejection murmur, lower left sternal border. LUNGS: Reveals bibasilar crackles and minimal rhonchi. No wheezing. ABDOMEN: Soft, nontender. Bowel sounds are present. MUSCULOSKELETAL: Examination of the musculoskeletal area reveals tenderness in the lower spine, stat us post kyphoplasty, but the pain is manageable on the current pain medicines the patient is on. EXTREMITIES: Reveals no cyanosis, clubbing or edema. Calves are nontender to palpation. NEUROLOGIC: Reveals no focal deficits at this time. ASSESSMENT NOTES AND PLAN: The patient has bilateral pneumonia with acute bronchitis in the backgrou nd setting of metastatic adenocarcinoma to the bone and the liver, primary site probably the lung bas ed on clinical findings. Advanced chronic obstructive pulmonary disease. Anemia. PLAN: The patient is resting comfortably. He is not short of breath. He is on high-flow oxygen. H is bronchospasm is less and is currently on the nebulizer treatments and low-dose intravenous steroid s, which has been decreased over the weekend for now. The patient is now off antibiotic therapy. Ov alex, prognosis is poor. We are trying to set up the patient for home hospice and we are waiting fo r hospital bed to be delivered for home and then we will make appropriate recommendations for the pat ient to be managed at home in home hospice. Family and especially the and his daughter are ther e and are eager to take him home so he can be comfortable at home in his own surroundings. Overall, prognosis is guarded. I had a lengthy discussion with the patient and the family regarding hospice a nd what the outcomes of goals are. Soni Camacho MD cc: [id number] TT: 08/17/2016 01:17:37 Confirmation # [id number] Dictation # [id number] dn
[2016-08-17] MEDS: Levalbuterol 0.63 MG/3 ML Inhal Soln UD IH SCH ×2 (02:35→07:58)
[2016-08-17] MEDS ORDERED: Iodixanol 320 MG/ML 100 ML BOTTLE IV ONE (03:04)
[2016-08-17] MEDS ORDERED: Iohexol 350 MG/100 ML VIAL ONE (04:22)
[2016-08-17] MEDS: Budesonide 0.5 mg/2 ml Inhal Susp UD IH SCH (07:58)
[2016-08-17] MEDS: Insulin Reg-LOW-Coverage SC SCH (07:59)
--- NOTE | 2016-08-17 08:10 | PN ---
DATE: 08/16/2016 REASON FOR CONSULTATION AND FOLLOWUP: Sinus tachycardia. The patient denies any chest pain, shortness of breath or any palpitation. PHYSICAL EXAMINATION: VITAL SIGNS: Temperature afebrile, heart rate 73, blood pressure 120/83. HEENT: PERRLA. Extraocular muscles intact. NECK: Supple. No carotid bruits. No thyromegaly. CHEST: Clear to auscultation. HEART: S1, S2 regular. ABDOMEN: Soft. EXTREMITIES: Clubbing, cyanosis negative. LABORATORY DATA: Blood workup as follows: WBC , hemoglobin 10.2, hematocrit 32.2, platelet cou nt 178. Chemistry shows sodium 130, potassium 3.4, chloride , carbon dioxide , anion gap o f 9, BUN 12, creatinine 0.5, albumin 2.4. IMPRESSION: Severe protein-calorie malnutrition, present since admission, leg edema, third spa cing anasarca, multifactorial secondary to anemia, metastatic disease, uncontrolled diabetes. The patient had stress test in November, which was negative. RECOMMENDATION: Continue antibiotic, gentle diuretics p.r.n. as blood pressures tolerate, continue T oprol-XL 25 then p.r.n. verapamil. We will discontinue IV fluid and give 1 dose of Lasix and check the blood workup in the morning. Will follow with you. Mayi Montague MD cc: [phone] TT: 08/16/2016 19:19:53 Confirmation # [id number] Dictation # [id number] dn
[2016-08-17 08:21] VITALS: BP 132/88
[2016-08-17 08:22] VITALS: PULSE 104; RESP 18; TEMP 97.8; O2SAT 100
[2016-08-17 08:30] LABS: BLOOD UREA NITROGEN 8 mg/dL (7-21); CARBON DIOXIDE 20 mmol/L (21-33); CHLORIDE 109 mmol/L (98-107); CHOLESTEROL 142 mg/dL (130-200); GFR AFRICAN-AMERICAN > 60; MAGNESIUM 1.9 mg/dL (1.7-2.2); PHOSPHOROUS 2.4 mg/dL (2.5-4.5); POTASSIUM 4.1 mmol/L (3.6-5.0); SODIUM 136 mmol/L (132-148)
[2016-08-17 08:42] LABS: CALCIUM 6.9 mg/dL (8.4-10.5)
[2016-08-17 08:45] LABS: GLUCOSE,RANDOM 305 mg/dL (70-110)
--- NOTE | 2016-08-17 08:58 | RAD ---
HISTORY: sob COMPARISON: 08/09/2016 FINDINGS: LUNGS: There is an increasing alveolar infiltrate in the right lung. No change in the left upper lobe infiltrate. PLEURA: No significant pleural effusion identified, no pneumothorax apparent. CARDIOVASCULAR: Normal. OSSEOUS STRUCTURES: No significant abnormalities. VISUALIZED UPPER ABDOMEN: Normal. OTHER FINDINGS: None. IMPRESSION: There is an increasing alveolar infiltrate in the right lung. No change in the left upper lobe infiltrate.
--- NOTE | 2016-08-17 09:43 | CT ---
PROCEDURE: CT Chest with contrast (Pulmonary Angiogram) HISTORY: elevated [id number], tachycardia. COMPARISON: 06/08/2016 TECHNIQUE: Axial computed tomography images were obtained of the chest in the pulmonary arterial phase of enhancement. Coronal and sagittal reformatted images were created and reviewed. Intravenous contrast dose: 100 cc of Omni 350 Radiation dose: Total exam DLP = 628 mGy-cm. This CT exam was performed using one or more of the following dose reduction techniques: Automated exposure control, adjustment of the mA and/or kV according to patient size, and/or use of iterative reconstruction technique. FINDINGS: PULMONARY ARTERIES: Unremarkable. No pulmonary embolism. AORTA: No acute findings. No thoracic aortic aneurysm. LUNGS: There is a diffuse infiltrate superimposed on severe emphysema. The infiltrate is a new finding since the study of 06/08/2016. The nodules seen previously or obscured by the infiltrate. PLEURAL SPACES: Small right pleural effusion HEART: Unremarkable. No cardiomegaly. No significant pericardial effusion. LYMPH NODES: No lymphadenopathy. BONES, CHEST WALL: Vertebroplasty at T11. Lytic rib lesions. OTHER FINDINGS: Metastatic disease to the liver The report concurs with the preliminary [facility] report IMPRESSION: No evidence of pulmonary embolus. Diffuse bilateral infiltrates superimposed on severe emphysema.
--- NOTE | 2016-08-17 09:51 | PN ---
DATE: 08/17/2016 PULMONARY NOTE SUBJECTIVE: The patient appears comfortable this morning. He is not short of breath at rest. OBJECTIVE: VITAL SIGNS: Temperature is 97.9, pulse 90, respirations 20, blood pressure 121 /89. Oxygen saturation --on 100% FIO2/BiPAP - 99%. HEENT: Normocephalic, atraumatic. No JVD. CARDIOVASCULAR: Systolic ejection murmur at the lower left sternal border. No S3 gallop. LUNGS: Crackles at both bases. Minimal bilateral rhonchi. No wheezing. EXTREMITIES: No clubbing, cyanosis, or edema. Calves are nontender to palpation. GASTROINTESTINAL: Abdomen is soft, nontender, nondistended. Bowel sounds are positive. SKIN: No acute rash. NEUROLOGIC: Limited at the present time. PERTINENT LABORATORY DATA: CAT scan of the chest was done earlier this morning as an angiogram protocol. There is no pulmonary embolism seen. There are extensive bilateral ground-glass changes noted. IMPRESSION: 1. Bilateral pneumonia. 2. Acute bronchitis. 3. Advanced metastatic adenocarcinoma, probable lung origin. 4. Liver and bony metastasis. 5. Advanced chronic obstructive pulmonary disease. 6. Anemia. PLAN: The patient appears comfortable at the time of my examination. He is not short of breath at rest. He is awake and alert. Oxygen saturation on BiPAP with 100% oxygen - 99%. I did discuss the case with the night nurse at length. Apparently, during her shift, the patient did experience oxygen desaturation. CAT scan of the chest was done as an angiogram protocol--noted above. Again noted, are extensive ground-glass changes bilaterally. I do question whether there can be an element of congestive heart failure at this point in time. The patient was given a dose of Lasix yesterday. I will also order a stat dose of Lasix this morning. I also ordered a stat BNP level to be done - I will be called with those results. In the meantime, I will also increase the steroids slightly. The patient is not in significant bronchospasm. Overall status/prognosis of this patient remains very poor. All are aware. I will discuss the above with the attending physician this morning. Abilio Woods MD cc: [phone] TT: 08/17/2016 09:50:34 Confirmation # [id number] Dictation # [id number] MTDD
[2016-08-17] MEDS ORDERED: Enoxaparin 40 mg Syringe SC SCH (10:00)
[2016-08-17] MEDS ORDERED: MethylPREDNISolone 40 mg Vial IVP SCH (10:00)
[2016-08-17] MEDS: oxyCODONE 10 mg Immediate Release Tab PO PRN (10:00)
[2016-08-17] MEDS: oxyCODONE 5 mg Immediate Release Tab PO PRN (10:00)
--- NOTE | 2016-08-17 10:45 | CARD ---
APPROVED REPORT EXAM: Two-dimensional and M-mode echocardiogram with Doppler and color Doppler. INDICATION SOB 2D DIMENSIONS Left Atrium (2D)3.9 (1.6-4.0cm)IVSd1.3 (0.7-1.1cm) LVDd3.4 (3.9-5.9cm)PWd1.2 (0.7-1.1cm) LVDs2.6 (2.5-4.0cm)FS (%) 22.3 % LVEF (%)45.9 (>50%) M-Mode DIMENSIONS Aortic Root3.30 (2.2-3.7cm)Aortic Cusp Exc.1.00 (1.5-2.0cm) Aortic Valve AoV Peak Bkjcgjnc794.0cm/Betty Peak GR.15mmHg Mitral Valve E/A ratio0.0 TDI E/Lateral E'0.0E/Medial E'0.0 Tricuspid Valve TR Peak [id number] [id number] Peak Gr.21mmHg [id number] LEFT VENTRICLE The left ventricle is normal size. There is mild concentric left ventricular hypertrophy. The systolic function is mildly impaired.EF-45-50% There is mild hypokinesis in the apical anterior wall. Transmitral Doppler flow pattern is Grade III-reversible restrictive diastolic dysfunction. No left ventricle thrombus noted on this study. There is no ventricular septal defect visualized. There is no left ventricular aneurysm. There is no mass noted in the left ventricle. RIGHT VENTRICLE The right ventricle is normal size. There is normal right ventricular wall thickness. The right ventricular systolic function is normal. ATRIA The left atrium is mildly dilated. The right atrium size is normal. The interatrial septum is intact with no evidence for an atrial septal defect. AORTIC VALVE The aortic valve is thickened but opens well. There is mild aortic regurgitation. There is no aortic valvular stenosis. There is no aortic valvular vegetation. MITRAL VALVE The mitral valve is thickened but opens well. Mitral regurgitation is trace. There is no mitral valve stenosis. There is no evidence of mitral valve prolapse. TRICUSPID VALVE The tricuspid valve leaflets are thickened , but open well. There is trace tricuspid regurgitation.RVSP-31 mmof Hg. There is no tricuspid valve stenosis. There is no tricuspid valve prolapse or vegetation. PULMONIC VALVE The pulmonic valve is not well visualized. GREAT VESSELS The aortic root is normal in size. The ascending aorta is normal in size. The pulmonary artery is normal. The IVC was not visualized. PERICARDIAL EFFUSION There is no pleural effusion. There is no pericardial effusion. <Conclusion> The left ventricle is normal size. There is mild concentric left ventricular hypertrophy. The systolic function is mildly impaired.EF-45-50% There is mild aortic regurgitation. Mitral regurgitation is trace. There is trace tricuspid regurgitation.RVSP-31 mmof Hg. There is no pericardial effusion. TDS poor Sonic Window.
--- NOTE | 2016-08-17 11:32 | PN ---
DATE: 08/17/2016 REASON FOR CONSULTATION AND FOLLOWUP: Sinus tachycardia. The patient denies any chest pain, shortness of breath, any palpitation. PHYSICAL EXAMINATION: VITAL SIGNS: Temperature afebrile, heart rate 90, blood pressure 121/____. HEENT: PERRLA. Extraocular muscles intact. NECK: Supple. No carotid bruits. No thyromegaly. CHEST: Clear to auscultation. HEART: S1, S2 regular. ABDOMEN: Soft. EXTREMITIES: Clubbing and cyanosis negative. LABORATORY DATA: Blood workup as follows: WBC 17.9, hemoglobin 11, hematocrit 34.9, platelet count 193. Chemistry shows sodium ____, potassium ____, chloride 109, carbon dioxide 20, anion gap of 11, BUN 8, creatinine 0.8, blood sugar 305, calcium 6.9, magnesium 1.9. IMPRESSION: Severe protein-calorie malnutrition since admission, leg edema, third spacing, severe, m ultifactorial secondary to anemia ____ metastatic disease, uncontrolled diabetes, has protein-calorie malnutrition. The patient had a stress test in November that was negative. RECOMMENDATION: Continue antibiotic. Continue gentle diuretics as blood pressures tolerate it. Con tinue Toprol-XL. Continue p.r.n. verapamil. Discontinue IV fluid. Gave one dose of Lasix. The pat ient had good diuresis. Will put p.o. Lasix as well to prevent more third spacing and get fluid out extra because the patient has severe protein-calorie malnutrition as well. Monitor electrolytes. Co ntinue DVT prophylaxis. Continue metoprolol 50 mg twice a day. Thank you, Dr. Camacho, for providing us the opportunity in taking care of the patient. Mayi Montague MD cc: [id number] TT: 08/17/2016 11:31:45 Confirmation # [id number] Dictation # [id number] karthik
--- NOTE | 2016-08-17 11:54 | PN ---
DATE: 08/17/2016 Seen and examined at the bedside this morning. The patient remains on high flow oxygen. His an d daughter are at the bedside. The patient has no reports of any recent bowel movement except a few days ago in which he had loose stools. No reports of bleeding. The patient is taking his home medic ation, Movantik, and is on oral MiraLax, but the patient has refused 2 previous doses and yesterday, the Movantik was not available. Family states that his appetite is poor, but he is eating a little b it more today. VITAL SIGNS: Temperature is 97.8, blood pressure 132/88, pulse is 104, respirations 18, 100 on O2. LABORATORY DATA: His CMP: Sodium 136, K 4.1, BUN is 8, creatinine 0.5. His mag is 1.9. LFTs are w ithin normal limits. His glucose is up at 305. The patient is on insulin coverage. Last night, the patient complained of shortness of breath. He had chest CT, which showed pulmonary nodules as seen before and right pleural effusion. Extremity ultrasound was done and preliminary report was negative . PHYSICAL EXAMINATION: HEENT: Sclerae are anicteric. NECK: Supple. CARDIAC: S1, S2. LUNGS: With bilateral rhonchi, no wheezing. ABDOMEN: With bowel sounds, soft, not distended, nontender. No rebound or guarding. EXTREMITIES: No edema. NEUROLOGIC: The patient is awake, but looks lethargic. No respiratory distress though. 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 PLAN: Continue PPI. Continue the Movantik and the MiraLax. The patient is on oxycodone and Solu-Me drol. The plan is the patient is going to be discharged home on home hospice. Spoke to the at the bedside. When home, they will resume the Movantik, can also take MiraLax. The patient was seen and case discussed with Dr. Aviles. Soraida CUMMINS cc: [id number] TT: 08/17/2016 11:54:44 Confirmation # [id number] Dictation # [id number] tn
--- NOTE | 2016-08-17 16:17 | US ---
HISTORY: Leg pain and swelling. Evaluate for DVT PHYSICIAN(S): Jaspal Smith MD. TECHNIQUE: Duplex sonography and color-flow Doppler with graded compression were used to evaluate the deep venous systems of both lower extremities. FINDINGS: The visualized deep venous systems of both lower extremities are sonographically normal and compressible. Normal wave forms and augmentation are seen. There is no sonographic evidence for deep venous thrombosis in the visualized segments of both lower extremities. IMPRESSION: No sonographic evidence for deep venous thrombosis in the visualized segments of both lower extremities.
--- NOTE | 2016-08-17 19:35 | PN ---
DATE: 08/17/2016 ADDENDUM This is an addendum to the GI progress report dictated by Soraida Jackson APN. The patient's and elpidio regalado were at the bedside. The patient had no complaints of any abdominal pain, tolerating the diet . The patient was taking Movantik at home. Plan to be discharged today. The patient was advised to continue that. The patient did receive Relistor while the patient was admitted here initially. Thank you very much for allowing us to participate in the care of the patient. Leyda Aviles MD cc: [id number] TT: 08/17/2016 19:34:54 Confirmation # [id number] Dictation # [id number] karthik
--- NOTE | 2016-08-17 22:43 | CARD ---
APPROVED REPORT EKG Measurement Heart [id number] <Conclusion> Sinus tachycardia with premature atrial complexes with aberrant conduction Incomplete right bundle branch block Borderline ECG
--- NOTE | 2016-08-17 23:38 | DS ---
HISTORY OF PRESENT ILLNESS: The patient has metastatic stage IV adenocarcinoma clinically arising fr om the lung, documented liver metastasis and bone metastasis, status post kyphoplasty and radiation f or acute compression fracture of T11-T10, and subsequent to that received radiation followed by 1 cyc le of systemic chemotherapy of Navelbine given as a single agent weekly. Was admitted to the [facility] with worsening pain, failure to thrive, shortness of breath. Found in the hospital on CAT scan of the chest to have bilateral pneumonia in addition to metastatic disease. Was treated successfully wi th antibiotics, improved. The patient was placed on high flow oxygen with BiPAP at nighttime and ove rall patient appeared to improve, even though prognostically things look grim. After talking to the patient and the patient's family, meanwhile invited palliative care team to step in. The patient was assessed by home hospice as well, and arrangements were made for him to be sent home after all the a rrangements at home were set up before the patient could be discharged. The patient has been comfort able and no longer is significantly short of breath though events from last night were noted. Pain a ppears to be well controlled with OxyContin along with intermittent oxycodone, which he has been erma lozano. PHYSICAL EXAMINATION: VITAL SIGNS: T-max is 98.4, pulse is 79, respirations 18, blood pressure 120/70, O2 sat on high flow oxygen is 92%. HEENT: Head is normocephalic, atraumatic. Conjunctivae pale. Sclerae are anicteric. Pupils are e qually reactive to light and accommodation. Temporal muscle wasting is noted. NECK: Supple. There is no adenopathy. CARDIOVASCULAR: Reveals systolic ejection murmur at the lower left sternal border. LUNGS: Reveal bibasilar crackles, minimal rhonchi, without any wheezing. ABDOMEN: Soft, nontender. Bowel sounds are present. MUSCULOSKELETAL: There is tenderness in the lower spine, status post kyphoplasty, with pain managed on the current pain medications. NEUROLOGIC: The patient has no neurologic deficits at this time. ASSESSMENT: The patient has bilateral pneumonia with acute bronchitis in the background setting of m etastatic adenocarcinoma to the bone and liver, primary site probably lung, based on clinical finding s, advanced chronic obstructive lung disease, history of carcinoma of the prostate. PLAN: I had a discussion with the patient and patient's family. Arrangements have been made for [facility]. All the equipment needed for home hospice has been set up. The patient is being discharg ed by ambulance today for home care. I have gone over all the medication list with the hospice nurse , as well, in great length. The patient is off antibiotic therapy. Overall, prognosis is poor. Goa l for now for the patient is pain control and to keep him as comfortable as possible. I have explain ed all this in detail to the patient's immediate family, as well, and they will keep in touch with me as far as requirement of narcotics is concerned. I have signed off as the responsible attending for him while he is on hospice. DISCHARGE DIAGNOSES: Status post bilateral pneumonia with acute bronchitis. Chronic obstructive pul monary disease, background history of stage IV metastatic adenocarcinoma, clinically arising from the lung, with extensive bone metastases as well, intractable pain of malignancy, cachexia of malignancy . Soni Camacho MD cc: [id number] TT: 08/17/2016 23:37:50 adriano
== END 2016-08-17 11:01 | disposition hospice, home (50) | DRG 871 ==
LOC: ED 14:41 → ERH 19:08 → 2RNO 22:47 → 3RSO 08-12 01:12
PROVIDERS: ADMIT Family Medicine; ATTEND Family Medicine
PROC: 5A09557 Assistance with Respiratory Ventilation, Greater than 96 Consecutive Hours, Continuous Positive Airway Pressure (ICD-10-PCS; principal; 2016-08-09)
PROC: 30233N1 Transfusion of Nonautologous Red Blood Cells into Peripheral Vein, Percutaneous Approach (ICD-10-PCS; 2016-08-13)
DX: A41.9 Sepsis, unspecified organism (principal); J18.9 Pneumonia, unspecified organism; E43 Unspecified severe protein-calorie malnutrition; B37.81 Candidal esophagitis; L89.302 Pressure ulcer of unspecified buttock, stage 2; C78.7 Secondary malignant neoplasm of liver and intrahepatic bile duct; C79.51 Secondary malignant neoplasm of bone; R64 Cachexia; J44.0 Chronic obstructive pulmonary disease with (acute) lower respiratory infection; C34.90 Malignant neoplasm of unspecified part of unspecified bronchus or lung; J44.1 Chronic obstructive pulmonary disease with (acute) exacerbation; E11.65 Type 2 diabetes mellitus with hyperglycemia; J20.9 Acute bronchitis, unspecified; G89.3 Neoplasm related pain (acute) (chronic); D63.0 Anemia in neoplastic disease; Z66 Do not resuscitate; L89.159 Pressure ulcer of sacral region, unspecified stage; Z51.5 Encounter for palliative care; K22.70 Barrett's esophagus without dysplasia; K59.03 Drug induced constipation; T40.605A Adverse effect of unspecified narcotics, initial encounter; F17.210 Nicotine dependence, cigarettes, uncomplicated; R09.02 Hypoxemia; Z74.01 Bed confinement status; Z85.46 Personal history of malignant neoplasm of prostate; Z68.30 Body mass index [BMI] 30.0-30.9, adult